=== PATIENT | female | born 1940 | race Caucasian/White ===

== ENCOUNTER 2020-06-22 03:04 | Inpatient (IN) | payer BC, SELFPAY ==
[2020-06-22] VITALS (12 sets, daily range): BP systolic 125–178; BP diastolic 55–94; PULSE 55–72; RESP 18–22; TEMP 36.3–36.8; O2SAT 92–98; BMI 23.5
--- NOTE | ~2020-06-22 | US_ITS ---
EXAMINATION: US retroperitoneal duplex ltd DATE: 07/03/2020 09:23 CDT INDICATION: Accelerated hypertension. TECHNIQUE: Sonographic imaging of the kidneys was performed with a 3.5 MHz transducer. Retroperitone al duplex sonogram of the renal arteries also obtained. FINDINGS: No focal flow abnormalities are seen in the renal arteries on color Doppler. The peak syst olic velocities at the origin of the right and left renal arteries and aorta are 174 cm per second, 1 75 cm per second, and 130 cm per second, respectively. The velocities and renal to aortic ratios are within normal limits. Incidental note is made of the left hydronephrosis. IMPRESSION: 1. No Doppler evidence of renal artery stenosis. 2: Left hydronephrosis. Reviewed, dictated and finalized at location A.
--- NOTE | ~2020-06-22 | XR_ITS ---
EXAMINATION: XR_[id number]_CR DATE: 06/24/2020 13:54 INDICATION: Right pleural effusion status post thoracentesis. TECHNIQUE: Frontal and lateral views of the chest were obtained. COMPARISON: Chest CT 06/24/2020 FINDINGS: There are moderate-sized bilateral pleural effusions. There is a small left pneumothorax. T here are airspace opacities in the mid and lower lung zones. Calcified left hilar lymph nodes are con sistent with old granulomatous disease. The nasogastric tube tip is in the stomach. There are bilater al breast implants. IMPRESSION: 1. Moderate-sized pleural effusions with improvement on the right status post thoracentesis. 2. Stable small left pneumothorax. 3. Airspace opacities in the mid and lower lung zones, likely atelectasis. Reviewed, dictated and finalized at location A. IMPRESSION: 1. Moderate-sized pleural effusions with improvement on the right status post t horacentesis. 2. Stable small left pneumothorax. 3. Airspace opacities in the mid and lower lung zones, likely atelectasis.
--- NOTE | ~2020-06-22 | XR_ITS ---
EXAMINATION: XR chest 1V portable INDICATION: Shortness of breath TECHNIQUE: Portable AP chest at 1406 hours COMPARISON: 06/22/2020 FINDINGS: Airspace opacities persist with slight worsening. Small pleural effusions are suggested. Th ere is no pneumothorax. The nasogastric tube is followed as far as the stomach. Its tip is beyond the inferior margin of the radiograph. The cardiomediastinal silhouette is stable. Enteric contrast mate rial is noted in the partially imaged abdomen. IMPRESSION: 1. Bibasilar airspace opacities with slight worsening, consistent with atelectasis versus pneumonia. 2. Small pleural effusions Reviewed, dictated and finalized at location B. IMPRESSION: 1. Bibasilar airspace opacities with slight worsening, consistent with atelecta sis versus pneumonia. 2. Small pleural effusions
--- NOTE | ~2020-06-22 | US_ITS ---
EXAMINATION: US thoracentesis DATE: 07/03/2020 13:07 CDT INDICATION: Right pleural effusion. TECHNIQUE: Survey imaging of the right thorax was performed. The procedure for ultrasound-guided tho racentesis and its risk and benefits were discussed with the patient. Risks included but were not smith ited to pain, bleeding, pneumothorax and infection. The patient verbalized understanding and provide d written consent. A time-out was performed to document the patient's name, date of , and site of procedure. The r ight posterior chest was prepped and draped in usual sterile fashion. 1% lidocaine was used for loca l anesthesia. Utilizing ultrasound guidance, a 5 [place] catheter was advanced into pleural fluid. A spiration was performed. The patient tolerated procedure without immediate complication. Sterile bandages were applied over t he aspiration site(s).] FINDINGS: 1000 cc of dark red pleural fluid obtained without complication. Patient tolerated procedur e well. IMPRESSION: 1. Successful ultrasound-guided right thoracentesis with 1000 cc of dark julio-colored fluid trever isabel Reviewed, dictated and finalized at location A. IMPRESSION: 1. Successful ultrasound-guided right thoracentesis with 1000 cc of dark julio -colored fluid obtained.
--- NOTE | ~2020-06-22 | CT_ITS ---
EXAMINATION: CT abdomen pelvis w con INDICATION: Right lower quadrant pain TECHNIQUE: Computed tomographic images of the abdomen and pelvis were obtained after the administrati on of 100 cc of Omnipaque 350 intravenous contrast. The dose-length product (DLP) was 372.11 mGy-cm. Automated exposure control and iterative reconstruction technique were employed. COMPARISON: 06/21/2018 FINDINGS: There is a [id number] sized right pleural effusion. Airspace opacities are present i n the lower lobes, right greater than left. There is a small left pneumothorax. Calcified bilateral b reast implants are noted. The heart size is normal. Cysts of the liver measure up to 2.2 cm in the ri ght hepatic lobe. Punctate calcifications in an otherwise normal spleen likely represent healed granu lomatous disease. The pancreas, gallbladder, and adrenal glands are normal. Cysts of the kidneys cadence ure up to 1.1 cm on the left. There are peripelvic cysts of both kidneys. There is calcified atherosc lerosis of the aorta and many of the other arteries. There are multiple dilated loops of small bowel which continue to a transition point right lower quadrant. The terminal ileum is decompressed. There is a moderate amount of associated edema in the mesentery of the affected right lower quadrant small bowel. Right upper quadrant and pelvic ascites are noted. Colonic diverticulosis is present without e vidence of diverticulitis. There is no free intraperitoneal gas. No pathologically enlarged abdominal or pelvic lymph nodes are identified. There is severe lumbar spondylosis at L5-S1. IMPRESSION: 1. Small bowel obstruction with transition point in the right lower quadrant. 2. Small left sided pneumothorax which appears to be chronic. Chest radiographic follow-up is recomme nded. Reviewed, dictated and finalized at location A. IMPRESSION: 1. Small bowel obstruction with transition point in the right lower quadrant. 2. Small left sided pneumothorax which appears to be chronic. Chest radiographi c follow-up is recommended.
--- NOTE | ~2020-06-22 | CT_ITS ---
EXAMINATION: CT chest wo con DATE: 06/24/2020 19:18 INDICATION: Chest pain. Status post thoracentesis TECHNIQUE: Computed tomography (CT) of the chest was performed without intravenous contrast. Automate d exposure control and iterative reconstruction technique were employed. Exam dose: 115.97 mGy-cm to janine exam DLP. COMPARISON: 06/24/2020 CT pulmonary scan FINDINGS: Since earlier today there is diminished right pleural effusion. Mild to moderate right pleu ral effusion and left pleural effusion persists. Mild left pneumothorax is again noted. There is atelectasis involving particularly the lower lobes, with crowded air bronchograms at both lo wer lobes. There is mild dependent bilateral upper lobe atelectasis. The aortic arch measures up to approximately 3.1 cm diameter, consistent with small thoracic aortic a neurysm. Coronary artery calcifications. Cardiomegaly. Coronary artery calcification. Calcified left and right hilar nodes, calcified left lower lobe pulmonary granuloma and calcified spl enic granulomas, consistent with old granulomatous disease. A nasogastric tube is present in the stomach. Bilateral breast implants. No suspicious osteolytic or osteoblastic lesions are noted. IMPRESSION: Moderate improvement of right pleural effusion following thoracentesis Persistent bilateral lower lobe compressive atelectasis with air bronchograms, secondary to pleural e ffusions, Persistent mild left pneumothorax Reviewed, dictated and finalized at Location A. Reviewed, dictated and finalized at location A. IMPRESSION: Moderate improvement of right pleural effusion following thoracent esis Persistent bilateral lower lobe compressive atelectasis with air bronchograms, secondary to pleural effusions, Persistent mild left pneumothorax
--- NOTE | ~2020-06-22 | XR_ITS ---
EXAMINATION: XR UGI water soluble w sbs DATE: 06/25/2020 11:31 INDICATION: Small bowel obstruction TECHNIQUE: 500 cc of Omnipaque 350 water-soluble contrast were injected through the nasogastric tube Conventional supine abdomen radiographs and fluoroscopy of the stomach and small bowel were performed . Fluoroscopy exposure time was 0.4 minutes. The DAP for this procedure was 36.746 Gycm2. COMPARISON: None. FINDINGS: UPPER GASTROINTESTINAL SERIES: There is no gastroesophageal reflux or hiatal hernia. The stomach shows a normal folding pattern. SMALL BOWEL SERIES: [employer] image demonstrates a persistently distended loop of bowel in the pelvis. Transit time from the stomach to proximal colon was approximately 2.5 hours. The small bowel is dilated throughout. There a ppears to be a persistent transition point in the pelvis. IMPRESSION: 1. Small bowel obstruction. Reviewed, dictated and finalized at location A. IMPRESSION: 1. Small bowel obstruction.
--- NOTE | ~2020-06-22 | XR_ITS ---
XR chest 2V 07/02/2020 08:13 Indication: Pleural effusion. Chronic pneumothorax. Procedure: AP and lateral views of the chest Comparison: Comparison to multiple prior studies sequentially, with oldest reviewed study dated 01/2018. Findings: Large right and small left pleural effusions. Mild interstitial edema. Atherosclerosis of t he aorta. No pneumothorax. No acute osseous abnormality. Impression: 1: Interstitial edema with bilateral pleural effusions, right greater than left. Reviewed, dictated and finalized at location A. Impression: 1: Interstitial edema with bilateral pleural effusions, right greater than left .
--- NOTE | ~2020-06-22 | US_ITS ---
EXAMINATION: US venous doppler LE EXAM DATE: 07/02/2020 15:24 INDICATION: Bilateral lower extremity edema. TECHNIQUE: Multiple grayscale, color flow and Doppler images of the lower extremity deep venous syste ms bilaterally were obtained and reviewed. There is no prior study for comparison. FINDINGS: Right side: The right common femoral, femoral and profunda veins demonstrate normal color flow, respi ratory variation, augmentation and compressibility. Compressibility, color flow confirmed within the right popliteal, posterior tibial, peroneal, and greater saphenous veins. Left side: The left common femoral, femoral and profunda veins demonstrate normal color flow, respira tory variation, augmentation and compressibility. Compressibility, color flow confirmed within the l eft popliteal, posterior tibial, peroneal, and greater saphenous veins. IMPRESSION: 1. No lower extremity deep venous thrombosis bilaterally. Reviewed, dictated and finalized at location A.
--- NOTE | ~2020-06-22 | XR_ITS ---
EXAMINATION: XR abdomen NG/feed tube insert INDICATION: Nasogastric tube insertion TECHNIQUE: Portable AP KUB-NG at 0501 hours COMPARISON: None available FINDINGS: The tip of the nasogastric tube is in the stomach. The proximal side port is near the gastr oesophageal junction. A small right pleural effusion is noted. Contrast from earlier CT examination p artially opacifies the urinary tract. IMPRESSION: 1. Tip of the nasogastric tube in the stomach with proximal side port at the gastroesophageal junctio n. Tube has been advanced at the time of interpretation. Reviewed, dictated and finalized at location A. IMPRESSION: 1. Tip of the nasogastric tube in the stomach with proximal side port at the ga stroesophageal junction. Tube has been advanced at the time of interpretation.
--- NOTE | ~2020-06-22 | XR_ITS ---
EXAMINATION: XR abdomen/kub 1V EXAM DATE: 06/29/2020 14:07 INDICATION: Follow up small bowel obstruction. TECHNIQUE: Frontal projection(s) of the abdomen for interpretation. Comparison is made to prior exami nation from 06/25/2020. FINDINGS: There is contrast within the colon. Previously seen loops of moderately distended air-fille d lower abdominal small bowel are no longer identified, nonspecific bowel gas pattern. Feeding tube i s in position. Some laparotomy devika which are new compared to prior study. IMPRESSION: 1. Nonobstructive bowel gas pattern. 2. Feeding tube in position. Reviewed, dictated and finalized at location A.
--- NOTE | ~2020-06-22 | XR_ITS ---
EXAMINATION: XR abdomen/kub 1V INDICATION: Small bowel obstruction TECHNIQUE: Supine views of the abdomen were obtained on 2 radiographs. COMPARISON: 06/24/2020 FINDINGS: The nasogastric tube is in the stomach. There is persistent, but slightly improved, distent ion of a bowel loop in the pelvis. No free intraperitoneal gas is identified. Gas is seen in the rect um. Pelvic phleboliths are noted. IMPRESSION: 1. Persistently dilated, but improved, pelvic bowel loop consistent with ileus versus obstruction. Reviewed, dictated and finalized at location A.
--- NOTE | ~2020-06-22 | US_ITS ---
EXAMINATION: US thoracentesis DATE: 06/24/2020 14:19 INDICATION: pleural effusion TECHNIQUE: The procedure and its risks, benefits, and alternatives were discussed with the patient. P otential risks discussed included bleeding, infection, and pneumothorax. The patient understood the r isks and agreed to proceed. The skin was prepped and draped in sterile fashion. 1% lidocaine was used for local anesthesia. Under ultrasound guidance, a 5 Fr catheter with trochar was advanced into the right pleural effusion. Fluid was aspirated. The catheter was removed, and a dressing was applied. Th ere were no immediate complications. FINDINGS: Ultrasound images demonstrate a right pleural effusion and the catheter within the fluid. IMPRESSION: 1. Successful ultrasound-guided thoracentesis yielding 1000 mL of clear, julio-colored fluid. Reviewed, dictated and finalized at location A. IMPRESSION: 1. Successful ultrasound-guided thoracentesis yielding 1000 mL of clear, julio -colored fluid.
--- NOTE | ~2020-06-22 | XR_ITS ---
EXAMINATION: XR chest 2V DATE: 06/22/2020 05:12 INDICATION: Pneumothorax TECHNIQUE: AP and lateral views of the chest are obtained. COMPARISON: 08/01/2018 FINDINGS: There is a small right pleural effusion. Minimal airspace opacities are present in the lung bases. A tiny chronic left apical pneumothorax is noted. The cardiomediastinal silhouette is normal. Contrast from earlier CT examination partially opacifies the urinary tract. An inserted nasogastric tube ends with its tip in the stomach and proximal side port near the gastroesophageal junction but h as been advanced at the time of interpretation. IMPRESSION: 1. Small, chronic left apical pneumothorax. 2. Small right pleural effusion. 3. Bibasilar airspace opacities, consistent with atelectasis versus pneumonia. Reviewed, dictated and finalized at location A.
--- NOTE | ~2020-06-22 | XR_ITS ---
XR_[id number]_CR 07/03/2020 12:35 Indication: Postthoracentesis. Right pleural effusion. Procedure: AP and lateral view of the chest Comparison: 06/24/2020 Findings: Bilateral pleural effusions, right greater than left. No pneumothorax identified post thora centesis. Interval removal of NG tube. Bibasilar atelectasis. Impression: 1: Persistent bilateral pleural effusions, right greater than left. Bibasilar compressive atelectasis . Reviewed, dictated and finalized at location A. Impression: 1: Persistent bilateral pleural effusions, right greater than left. Bibasilar c ompressive atelectasis.
--- NOTE | ~2020-06-22 | XR_ITS ---
EXAMINATION: XR abdomen NG/feed tube rechec INDICATION: Nasogastric tube advancement TECHNIQUE: Portable AP KUB-NG at 0644 hours COMPARISON: 0501 hours FINDINGS: The nasogastric tube has been advanced and now ends with its tip at the gastric antrum. A s mall right pleural effusion is noted. Contrast from earlier CT examination is again noted to partiall y opacifies the urinary tract. IMPRESSION: 1. Nasogastric tube advanced and in adequate position. Reviewed, dictated and finalized at location A.
--- NOTE | ~2020-06-22 | XR_ITS ---
EXAMINATION: XR abdomen/kub 1V INDICATION: Small bowel obstruction, increasing leukocytosis TECHNIQUE: Supine views of the abdomen were obtained on 2 radiographs. COMPARISON: 06/23/2020 FINDINGS: A nasogastric tube is in the stomach. There is distention of a loop of bowel in the pelvis extending into the midabdomen. No free intraperitoneal gas is identified. Gas and stool are seen in t he rectum. IMPRESSION: 1. Dilated loop of bowel in the pelvis extending into the mid abdomen, consistent with ileus versus o bstruction. Reviewed, dictated and finalized at location A. IMPRESSION: 1. Dilated loop of bowel in the pelvis extending into the mid abdomen, consiste nt with ileus versus obstruction.
--- NOTE | ~2020-06-22 | CT_ITS ---
EXAMINATION: CTA chest PE protocol DATE: 06/24/2020 08:50 INDICATION: Shortness of breath, left-sided pneumothorax TECHNIQUE: Computed tomography angiography (CTA) of the chest was performed with 100 mL Omnipaque-350 intravenous contrast timed to evaluate the pulmonary arteries. Coronal maximum intensity projection 3D-reconstructions were created by the technologist. The dose-length product (DLP) was 248.28 mGy-cm. Automated exposure control and iterative reconstruction technique were employed. COMPARISON: None. FINDINGS: The pulmonary arteries are well-opacified. No pulmonary embolism is identified. There is a large right pleural effusion causing atelectasis of much of the right lower lobe. A small left pleura l effusion is present which causes moderate left lower lobe atelectasis. There is a small chronic lef t-sided pneumothorax which appears unchanged from prior examinations. Bilateral breast implants are n oted. No pathologically enlarged thoracic lymph nodes are identified. The heart size is normal. A conner ogastric tube is followed as far as the stomach. There is mild thoracic spondylosis. IMPRESSION: 1. No pulmonary embolism. 2. Large right pleural effusion causing atelectasis of much of the right lower lobe. 3. Small left pleural effusion causing moderate left lower lobe atelectasis. 4. Chronic left-sided pneumothorax without definite interval change from prior examinations. Reviewed, dictated and finalized at location A.
--- NOTE | ~2020-06-22 | XR_ITS ---
EXAMINATION: XR abdomen/kub 1V INDICATION: Small bowel obstruction, right lower quadrant pain TECHNIQUE: Supine views of the abdomen were obtained on 2 radiographs. COMPARISON: 06/22/2020 FINDINGS: The nasogastric tube is in the stomach. No definitely dilated loops of bowel are seen. No f ree peritoneal gas is identified. Contrast from yesterday's CT examination opacifies the urinary blad jazmine. In addition, there is vicarious excretion of contrast material into the gallbladder. There is sl ightly increased lucency in the medial left lung base. IMPRESSION: 1. No definitely dilated loops of bowel identified. 2. Slightly increased lucency in the medial left lung base. Prior chest radiographs demonstrate what appear to be a chronic left-sided pneumothorax however, would recommend follow-up chest radiograph to evaluate for any interval change. Reviewed, dictated and finalized at location A. IMPRESSION: 1. No definitely dilated loops of bowel identified. 2. Slightly increased lucency in the medial left lung base. Prior chest radiogr aphs demonstrate what appear to be a chronic left-sided pneumothorax however, w ould recommend follow-up chest radiograph to evaluate for any interval change.
[2020-06-22 03:12] LABS: Basophils Absolute Auto 0.1 K/mm3 (0.0-0.1); Basophils Percent Auto 0.4 % (0.2-1.2); Hematocrit 44.6 % (37.0-47.0); Hemoglobin 15.5 g/dL (12.0-15.0); Immature Granulocyte Absolute 0.15 K/mm3 (0.00-0.031); Immature Granulocyte Percent A 0.9 % (0-0.5); Lymphocytes Absolute Auto 0.76 K/mm3 (0.9-3.2); Lymphocytes Percent Auto 4.5 % (18.3-44.2); Mean Corpuscular HGB Conc 34.8 g/dl (32-36); Mean Corpuscular Hemoglobin 33.3 pg (26-34); Mean Corpuscular Volume 95.9 fl (80-100); Mean Platelet Volume 10.5 fl (7.4-10.4); Monocytes Absolute Auto 0.4 K/mm3 (0.1-0.6); Monocytes Percent Auto 2.3 % (2.6-8.5); Neutrophils Absolute Auto 15.6 K/mm3 (1.3-6.7); Neutrophils Percent Auto 91.9 % (45.5-73.1); Nucleated Red Blood Cells Perc 0.1 % (0.0-0.2); Platelet Count Result 382 k/mm3 (150-375); Red Blood Count 4.65 M/mm3 (4.2-5.4); Red Cell Distribution Width 14.9 % (11.5-14.5)
[2020-06-22] MEDS: ONDANSETRON INJ 4 MG/2 ML VIAL IV PUSH ×2 (03:21→17:06)
[2020-06-22 03:26] LABS: Alanine Aminotransferase 20 U/L (4-35); Albumin Level 4.3 g/dL (3.5-5.1); Alkaline Phosphatase 94 U/L (38-126); Anion Gap 8 mmol/L (8-16); Aspartate Amino Transferase 32 U/L (14-36); Bilirubin,Total 0.8 mg/dL (0.2-1.3); Blood Urea Nitrogen 13 mg/dL (7-17); Calcium 9.4 mg/dL (8.4-10.2); Carbon Dioxide 20 mmol/L (22-30); Chloride 107 mmol/L (98-107); Estimated CRCL calculation 65 ml/min; Estimated Glomerular Filt Rate > 60; Glucose 206 mg/dL (65-105); Lipase 35 U/L (23-300); Potassium 4.3 mmol/L (3.4-5.0); Sodium 135 mmol/L (137-145)
--- NOTE | 2020-06-22 03:59 | ED.ABDPAIN ---
HPI - Abdominal Pain General Chief Complaint: Abdominal Pain Stated Complaint: abd pain/vomiting Time Seen by Provider: 06/22/20 03:05 History of Present Illness HPI narrative: Patient is an 80-year-old female who presents ER with lower abdominal pain. Reports symptoms began yesterday evening at 4 PM. Have progressed throughout the night. Pain is sharp in the right lower quadrant. Associate with nausea vomiting. Has only had one bowel movement. Has history of previous surgery including appendectomy hysterectomy. No known sick contacts. No alleviating factors. Related Data Home Medications Medication Instructions Recorded Confirmed metoprolol tartrate 25 mg PO BID 06/22/20 06/22/20 pravastatin 20 mg PO DAILY 06/22/20 06/22/20 Allergies Allergy/AdvReac Type Severity Reaction Status Date / Time No Known Allergies Allergy Unverified 06/21/18 16:26 Review of Systems Review of Systems: All systems reviewed & are unremarkable except as noted in HPI and below Constitutional: Constitutional: Denies chills, Denies fever(s) and Denies weakness ENT: Denies nasal congestion and Denies sore throat Cardiovascular: Cardiovascular: Denies chest pain and Denies radiating jaw, neck or arm pain Gastrointestinal: Gastrointestinal: Reports abdominal pain, Denies diarrhea, Reports nausea and Reports vomiting Genitourinary: Genitourinary: Denies hematuria, Denies nocturia, Denies dysuria and Denies flank pain PMFSH Past Medical History Medical History (Updated 06/22/20 @ 06:26 by Alvaro Berg MD) Anxiety Hypertension Other and unspecified hyperlipidemia Surgical History Surgical History (Updated 06/22/20 @ 04:02 by Alvaro Berg MD) History of appendectomy History of hysterectomy Family History Family History (Updated 06/22/20 @ 05:41 by Leyla Zamorano RN) Father Mesothelioma Mother Cerebrovascular accident Social History Social History Smoking status: Never smoker Alcohol intake: never Substance use: never Gender identity (if verbalized by the patient): Female Spiritual care concerns: No Exam Narrative: Exam Narrative: GENERAL: Uncomfortable-appearing, well-nourished, and in no acute distress. HEAD: Normocephalic, atraumatic. ENT: Mucous membranes moist. CHEST: Clear to auscultation. No respiratory distress. HEART: Regular rate and rhythm. Normal peripheral pulses. ABDOMEN: Soft, tender palpation right lower quadrant with guarding, nondistended. EXTREMITIES: Normal range of motion. No edema. SKIN: Warm, dry, no rash. NEURO: Alert and oriented x3. PSYCH: Normal mood and affect Course Course Emergency Course: Discussed with Dr. Porter. NG tube placed. Admit for further evaluation. Vital Signs Vital signs: Vital Signs Temperature 98.2 F 06/22/20 03:02 Pulse Rate 65 06/22/20 03:02 Respiratory Rate 20 06/22/20 03:02 Blood Pressure 164/71 H 06/22/20 03:02 Pulse Oximetry 98 06/22/20 03:02 Temperature 98.3 F 06/22/20 05:13 Pulse Rate 65 06/22/20 05:13 Respiratory Rate 19 06/22/20 05:13 Blood Pressure 137/94 H 06/22/20 05:13 Pulse Oximetry 95 06/22/20 05:13 MDM - Abdominal Pain Lab Data Result diagrams: 06/22/20 03:07 06/22/20 03:07 Labs: Lab Results 06/22/20 06/22/20 Range/Units 03:07 03:07 WBC 17.0 H (4.5-10.0) K/mm3 RBC 4.65 (4.2-5.4) M/mm3 Hgb 15.5 H (12.0-15.0) g/dL Hct 44.6 (37.0-47.0) % MCV 95.9 (80-100) fl MCH 33.3 (26-34) pg MCHC 34.8 (32-36) g/dl RDW 14.9 H (11.5-14.5) % Plt Count 382 H (150-375) k/mm3 MPV 10.5 H (7.4-10.4) fl Immature Gran % (Auto) 0.9 H (0-0.5) % Neut % (Auto) 91.9 H (45.5-73.1) % Lymph % (Auto) 4.5 L (18.3-44.2) % [place] % (Auto) 2.3 L (2.6-8.5) % Eos % (Auto) 0.0 (0-4.4) % Baso % (Auto) 0.4 (0.2-1.2) % Lymph # (Auto) 0.76 L (0.9-3.2) K/mm3 [place] # (Auto) 0.4 (0.1-0.6) K/mm3 Eos # (Auto) 0.0
--- NOTE | 2020-06-22 04:55 | PC.NURSE ---
pt unable to provide urine sample at this time
--- NOTE | 2020-06-22 05:26 | ADMGEN ---
This patient, Balbina Lopez, was admitted to Medical Room 247-. Patient/family oriented to hospital policies and general routines including ID bracelet, bed and alarms, visiting hours, pain management, procedures, bathroom and other care routines, personal items, smoking policy, room service/diet, and visiting hours. Valuables list has been completed. Information on how to activate the Rapid Response Team has been discussed. Patient/Family are encouraged to report perceived risks to care and to ask questions if they do not understand what they are told or what they should do.
[2020-06-22] MEDS: SODIUM CHLORIDE 0.9% IV 1,000 ML 125 ML IV CONT (05:47)
[2020-06-22] MEDS: MORPHINE SULFATE 4 MG/ML INJ IV PUSH ×3 (05:49→14:29)
[2020-06-22 06:15] LABS: Add Urine Microscopic? YES; Appearance Urine Clear (Clear); Bilirubin Urine Negative (Negative); Blood Urine 1+ (Negative); Color Urine Yellow (Yellow); Glucose Urine UA Negative (Negative); Ketones Urine Negative (Negative); Leukocyte Esterase Ur Trace LEU/UL (Negative); Mucus Urine Rare /lpf; Nitrate Urine Negative (Negative); Protein Urine 1+ mg/dL (Negative); Squamous Epithelial Cell Urine Few /hpf (Few); Urobilinogen Urine Negative mg/dL (<2.0)
[2020-06-22 06:30] LABS: Specific Grav Ur > 1.060 (1.001-1.035)
[2020-06-22] MEDS: METOPROLOL TARTRATE INJ 5 MG/5 ML VIAL IV PUSH ×3 (06:53→17:06)
--- NOTE | 2020-06-22 11:02 | PM.IMHP ---
H&P: HPI History of Present Illness Date/Time: 06/22/20 06:32 Chief complaint: small bowel obstruction Narrative: Balbina Lopez is a 80 year old female with a history of previous open appendectomy as well as a hysterectomy. She reports eating some pizza from [employer] yesterday. She had ordered green peppers but instead got pepperoni. After eating a pizza she started having crampy and sharp abdominal pain associated with nausea and vomiting. This persisted and she came to the emergency room. She was seen by Dr. Berg in the emergency room about 3:00 a.m. today. Shoe was noted to have some tenderness in the right lower quadrant on abdominal exam with mild guarding. No distention was appreciated. She was afebrile [place] [address] scan was done and showed small-bowel obstruction with transition point in the right lower quadrant. CT of the abdomen pelvis also showed a chronic small left-sided pneumothorax. Review of old records shows that his had been known and present for at least 3 years. It is been asymptomatic. She is admitted now for small-bowel obstruction. Review of Systems Review of Systems: All systems reviewed & are unremarkable except as noted in HPI and below Constitutional: Constitutional: Denies chills and Denies fever(s) Cardiovascular: Cardiovascular: Denies chest pain, Denies diaphoresis, Denies dyspnea and Denies paroxysmal nocturnal dyspnea Respiratory: Respiratory: Denies chest congestion, Denies cough and Denies dyspnea Integumentary/Breasts: Skin/Breast: Denies lesions and Denies rash Neurologic: Denies Sensory deficit (Neuro) [facility] Past Medical History Medical History Anxiety Hypertension Other and unspecified hyperlipidemia Surgical History Surgical History History of appendectomy History of hysterectomy Family History Family History Father Mesothelioma Mother Cerebrovascular accident Social History Social History Smoking status: Never smoker Alcohol intake: never Substance use: never Gender identity (if verbalized by the patient): Female Spiritual care concerns: No Meds Home Medications and Allergies Home Medications Medication Instructions Recorded Confirmed Type metoprolol tartrate 25 mg PO BID 06/22/20 06/22/20 History pravastatin 20 mg PO DAILY 06/22/20 06/22/20 History Allergies Allergy/AdvReac Type Severity Reaction Status Date / Time No Known Allergies Allergy Unverified 06/21/18 16:26 Vital Signs Vital Signs - 24 hr 06/22/20 03:02 06/22/20 04:17 06/22/20 05:13 Temperature 36.8 C 36.8 C Pulse Rate 65 57 L 65 Respiratory Rate 20 19 19 Blood Pressure 164/71 H 178/80 H 137/94 H Pulse Oximetry 98 98 95 06/22/20 06:52 06/22/20 06:53 06/22/20 07:58 Temperature 36.8 C Pulse Rate 72 65 Respiratory Rate 18 Blood Pressure 152/55 H 152/55 H Pulse Oximetry 96 06/22/20 09:10 Temperature 36.6 C Pulse Rate 58 L Respiratory Rate 20 Blood Pressure 139/69 Pulse Oximetry 95 Exam Const: General: comfortable, no acute distress, alert and awake HENMT: Head: normocephalic and atraumatic Ears: hearing grossly normal bilaterally and external ears normal General nose exam: Normal external nose present, no nasal discharge noted and no epistaxis Face and sinus: normal facial exam, face symmetric, no tenderness and dry mucous membranes Mouth: Yes Normal oral and palatal mucosa present and No tongue abnormal Eyes: Conjunctivae: conjunctivae normal Sclera: sclerae normal Pupils: Equal, round and reactive pupils present EOM: EOMs intact bilaterally Neck: Neck: no lymphadenopathy, nontender and No submandibular swelling Thyroid: thyroid normal and nontender Lymphatic: lymphadenopathy not not
[2020-06-22] MEDS: ENOXAPARIN 40 MG/0.4 ML SYRINGE SUB-Q (12:32)
[2020-06-22] MEDS: SODIUM CHLORIDE 0.9% IV 1,000 ML 80 ML IV CONT (14:30)
[2020-06-22] MEDS: FAMOTIDINE 20 MG/2 ML VIAL IV PUSH (22:24)
[2020-06-22] MEDS: MORPHINE SULFATE 4 MG/ML INJ 2 MG IV PUSH (22:29)
[2020-06-23] VITALS (15 sets, daily range): BP systolic 128–200; BP diastolic 48–76; PULSE 60–78; RESP 18–32; TEMP 36.2–37.1; O2SAT 91–95
[2020-06-23] MEDS: METOPROLOL TARTRATE INJ 5 MG/5 ML VIAL IV PUSH ×5 (00:03→23:23)
[2020-06-23] MEDS: SODIUM CHLORIDE 0.9% IV 1,000 ML 80 ML IV CONT ×2 (03:38→18:04)
[2020-06-23] MEDS: MORPHINE SULFATE 4 MG/ML INJ 2 MG IV PUSH (05:51)
[2020-06-23] MEDS: ONDANSETRON INJ 4 MG/2 ML VIAL IV PUSH ×2 (06:00→16:04)
[2020-06-23 07:22] LABS: Basophils Absolute Auto 0.1 K/mm3 (0.0-0.1); Basophils Percent Auto 0.5 % (0.2-1.2); Eosinophils Percent Auto 0.2 % (0-4.4); Hematocrit 41.7 % (37.0-47.0); Hemoglobin 13.9 g/dL (12.0-15.0); Immature Granulocyte Absolute 0.08 K/mm3 (0.00-0.031); Immature Granulocyte Percent A 0.6 % (0-0.5); Lymphocytes Absolute Auto 1.32 K/mm3 (0.9-3.2); Mean Corpuscular HGB Conc 33.3 g/dl (32-36); Mean Corpuscular Hemoglobin 33.2 pg (26-34); Mean Corpuscular Volume 99.5 fl (80-100); Mean Platelet Volume 10.4 fl (7.4-10.4); Monocytes Absolute Auto 1.1 K/mm3 (0.1-0.6); Neutrophils Absolute Auto 10.6 K/mm3 (1.3-6.7); Neutrophils Percent Auto 80.7 % (45.5-73.1); Platelet Count Result 331 k/mm3 (150-375); Red Blood Count 4.19 M/mm3 (4.2-5.4); Red Cell Distribution Width 15.7 % (11.5-14.5); White Blood Count 13.2 K/mm3 (4.5-10.0)
[2020-06-23 07:34] LABS: Anion Gap 4 mmol/L (8-16); Blood Urea Nitrogen 16 mg/dL (7-17); Calcium 8.2 mg/dL (8.4-10.2); Carbon Dioxide 25 mmol/L (22-30); Chloride 108 mmol/L (98-107); Estimated CRCL calculation 55 ml/min; Estimated Glomerular Filt Rate > 60; Glucose 118 mg/dL (65-105); Potassium 4.2 mmol/L (3.4-5.0); Sodium 137 mmol/L (137-145)
--- NOTE | 2020-06-23 08:04 | PM.PNGS ---
Progress Note: A&P Assessment and Plan (1) Small bowel obstruction: Code(s): K56.609 - Unspecified intestinal obstruction, unspecified as to partial versus complete obstruction Status: Acute Assessment and Plan: Improving. Continue NG suction IV fluids and NPO. Recheck exam KUB and labs again in a.m.. Probably will get water-soluble upper GI small-bowel follow-through tomorrow. (2) Other and unspecified hyperlipidemia: Code(s): E78.5 - Hyperlipidemia, unspecified Status: Chronic (3) Anxiety: Code(s): F41.9 - Anxiety disorder, unspecified Status: Chronic Subjective Subjective Date/Time Seen: 06/23/20 08:04 Patient reports: feels better, pain is less, no flatus and no bowel movement Review of Systems Review of Systems: All systems reviewed & are unremarkable except as noted in HPI and below Constitutional: Constitutional: Denies headache(s) Cardiovascular: Cardiovascular: Denies chest pain and Denies dyspnea Respiratory: Respiratory: Denies cough and Denies dyspnea Gastrointestinal: Gastrointestinal: Reports as per HPI Neurologic: Denies confusion and Denies headache(s) Exam Const: General: comfortable and no acute distress; No confusion Orientation/consciousness: patient oriented x3 and No confusion GI: GI Palp: Yes Soft to palpation, Yes Tenderness to palpation present (GI), No Guarding due to palpation present (GI) and No Rebound tenderness present Auscultation: normal bowel sounds Neuro: General: patient oriented x3, no focal motor deficits and No confusion Extrem: General: no calf tenderness and no edema Psych: Affect: normal affect Insight: Good insight present (Psych) Judgement: Good judgement present (Psych) Objective Data Vital Signs Vital Signs: Vital Signs - 24 hr 06/22/20 09:10 06/22/20 12:32 06/22/20 13:35 Temperature 36.6 C 36.8 C Pulse Rate 58 L 60 60 Respiratory Rate 20 22 H Blood Pressure 139/69 149/79 H Pulse Oximetry 95 96 06/22/20 17:06 06/22/20 18:20 06/22/20 20:00 Temperature 36.3 C L 36.7 C Pulse Rate 56 L 55 L 60 Respiratory Rate 20 20 Blood Pressure 139/63 125/65 Pulse Oximetry 97 92 06/23/20 00:00 06/23/20 00:03 06/23/20 01:30 Temperature 36.2 C L 37.1 C Pulse Rate 62 62 60 Respiratory Rate 18 18 Blood Pressure 167/48 H 128/76 Pulse Oximetry 92 92 06/23/20 04:00 06/23/20 05:50 Temperature 36.6 C Pulse Rate 65 78 Respiratory Rate 18 Blood Pressure 158/72 H Pulse Oximetry 93 Intake/Output Intake/Output: Intake & Output 06/20/20 06/21/20 06/22/20 06/23/20 23:59 23:59 23:59 23:59 Intake Total 1209 791 Output Total 400 120 Balance 809 671 Meds/Results Medications: Active Medications Generic Name Dose Route Start Last Admin Trade Name Freq PRN Reason Stop Dose Admin Enoxaparin Sodium 40 mg 06/23/20 09:00 Lovenox SUB-Q DAILY JOZEF Famotidine 20 mg 06/22/20 21:00 06/22/20 22:24 Pepcid Iv IV PUSH 20 mg Q12HR JOZEF Administration Sodium Chloride 1,000 mls @ 80 mls/hr 06/22/20 04:50 06/23/20 03:38 Normal Saline Iv IV CONT 80 mls/hr .[id number] JOZEF Administration Ibuprofen 400 mg/ Sodium 104 mls @ 200 mls/hr 06/22/20 11:12 Chloride IVPB Q6H PRN Pain Rated 1-3 Metoprolol Tartrate 5 mg 06/22/20 06:35 06/23/20 05:50 Lopressor Inj IV PUSH 5 mg Q6HR JOZEF Administration Morphine Sulfate 4 mg 06/22/20 04:49 06/22/20 14:29 Morphine Sulfate Inj IV PUSH 4 mg Q2H PRN Administration Pain Rated 7-10 Morphine Sulfate 1 mg 06/22/20 11:12 Morphine Sulfate Inj IV PUSH Q2H PRN Pain Rated 4-6 Morphine Sulfate 2 mg 06/22/20 11:12 06/23/20 05:51 Morphine Sulfate Inj IV PUSH 2 mg Q2H PRN Administration Pain Rated 7-10 Ondansetron HCl 4 mg 06/22/20 04:49 06/23/20 06:00 Zofran Inj IV PUSH 4 mg Q4H PRN Administration Nausea Radiology Results: ITS Impressions Ch
[2020-06-23] MEDS: FAMOTIDINE 20 MG/2 ML VIAL IV PUSH ×2 (09:23→20:07)
[2020-06-23] MEDS: ENOXAPARIN 40 MG/0.4 ML SYRINGE SUB-Q (09:23)
[2020-06-23] MEDS: hydrALAZINE HCL 20 MG/ML VIAL 10 MG IV PUSH (14:20)
[2020-06-23 15:57] LABS: Glucose Point of Care 104 (65-105)
[2020-06-23] MEDS: IBUPROFEN IV 400 MG in SODIUM CHLORIDE 0.9% IV 100 ML 200 MG IVPB ×2 (16:00→23:23)
[2020-06-24] VITALS (22 sets, daily range): BP systolic 146–184; BP diastolic 43–75; PULSE 56–94; RESP 16–24; TEMP 36.6–37.1; O2SAT 90–96
[2020-06-24] MEDS: METOPROLOL TARTRATE INJ 5 MG/5 ML VIAL IV PUSH ×4 (05:53→23:33)
[2020-06-24] MEDS: SODIUM CHLORIDE 0.9% IV 1,000 ML 80 ML IV CONT ×2 (06:03→21:10)
[2020-06-24 06:04] LABS: Hemoglobin 13.2 g/dL (12.0-15.0); Mean Corpuscular HGB Conc 33.8 g/dl (32-36); Mean Corpuscular Hemoglobin 33.2 pg (26-34); Mean Corpuscular Volume 98.2 fl (80-100); Mean Platelet Volume 10.6 fl (7.4-10.4); Platelet Count Result 259 k/mm3 (150-375); Red Blood Count 3.97 M/mm3 (4.2-5.4); Red Cell Distribution Width 15.5 % (11.5-14.5); White Blood Count 14.2 K/mm3 (4.5-10.0)
[2020-06-24] MEDS: MORPHINE SULFATE 4 MG/ML INJ IV PUSH ×3 (06:05→12:06)
[2020-06-24] MEDS: ONDANSETRON INJ 4 MG/2 ML VIAL IV PUSH ×2 (06:08→12:18)
[2020-06-24 06:20] LABS: Anion Gap 3 mmol/L (8-16); Blood Urea Nitrogen 15 mg/dL (7-17); Carbon Dioxide 22 mmol/L (22-30); Chloride 112 mmol/L (98-107); Estimated CRCL calculation 79 ml/min; Estimated Glomerular Filt Rate > 60; Glucose 121 mg/dL (65-105); Sodium 137 mmol/L (137-145)
[2020-06-24] MEDS: hydrALAZINE HCL 20 MG/ML VIAL 10 MG IV PUSH (06:26)
--- NOTE | 2020-06-24 06:32 | PM.PNGS ---
Progress Note: A&P Assessment and Plan (1) Small bowel obstruction: Code(s): K56.609 - Unspecified intestinal obstruction, unspecified as to partial versus complete obstruction Status: Acute Assessment and Plan: KUB reviewed and still has a distended loop of small bowel in the mid abdomen. Pain is better but still no bowel movement or flatus. Her white count is creeping higher as well. Will get Gastrografin upper GI small-bowel follow-through this morning. I am concerned that this is not resolving and patient may well require surgery. Subjective Subjective Date/Time Seen: 06/24/20 06:32 Patient reports: no new complaints, pain is less, no flatus, no bowel movement and afebrile Review of Systems Review of Systems: All systems reviewed & are unremarkable except as noted in HPI and below Constitutional: Constitutional: Denies chills, Denies fever(s) and Denies weakness Cardiovascular: Cardiovascular: Denies chest pain and Denies dyspnea Respiratory: Respiratory: Denies cough and Denies dyspnea Gastrointestinal: Gastrointestinal: Reports as per HPI, Denies abdominal pain, Denies GI cramping and Denies nausea Neurologic: Denies confusion and Denies headache(s) Exam Const: General: comfortable and no acute distress; No confusion Orientation/consciousness: patient oriented x3 and No confusion GI: Inspection: normal to inspection, non-distended and scar GI Palp: Yes Soft to palpation, No Tenderness to palpation present (GI), No Guarding due to palpation present (GI), No Hernia present, No Palpable mass present and No Rebound tenderness present Auscultation: normal bowel sounds Neuro: General: patient oriented x3, no focal motor deficits and No confusion Extrem: General: no calf tenderness and no edema Psych: Affect: normal affect Insight: Good insight present (Psych) Judgement: Good judgement present (Psych) Objective Data Vital Signs Vital Signs: Vital Signs - 24 hr 06/23/20 09:00 06/23/20 10:26 06/23/20 12:42 Temperature 37.1 C Pulse Rate 72 75 70 Respiratory Rate 20 Blood Pressure 200/72 H 155/74 H Pulse Oximetry 92 06/23/20 12:44 06/23/20 14:00 06/23/20 15:41 Temperature 37.1 C 36.6 C Pulse Rate 71 75 Respiratory Rate 22 H 32 H Blood Pressure 178/61 H 170/66 H 161/58 H Pulse Oximetry 91 93 06/23/20 18:06 06/23/20 18:07 06/23/20 22:00 Temperature 36.6 C Pulse Rate 70 70 Respiratory Rate 18 Blood Pressure 157/57 H 174/60 H Pulse Oximetry 95 06/23/20 23:23 06/24/20 02:00 06/24/20 05:53 Temperature 36.6 C Pulse Rate 70 56 L 66 Respiratory Rate 18 Blood Pressure 146/43 H Pulse Oximetry 96 06/24/20 06:00 06/24/20 06:30 Temperature 36.7 C Pulse Rate 73 Respiratory Rate 16 Blood Pressure 184/69 H 182/57 H Pulse Oximetry 94 Intake/Output Intake/Output: Intake & Output 06/21/20 06/22/20 06/23/20 06/24/20 23:59 23:59 23:59 23:59 Intake Total 1209 1999 1000 Output Total 400 545 400 Balance 809 1454 600 Meds/Results Medications: Active Medications Generic Name Dose Route Start Last Admin Trade Name Freq PRN Reason Stop Dose Admin Enoxaparin Sodium 40 mg 06/23/20 09:00 06/23/20 09:23 Lovenox SUB-Q 40 mg DAILY JOZEF Administration Famotidine 20 mg 06/22/20 21:00 06/23/20 20:07 Pepcid Iv IV PUSH 20 mg Q12HR JOZEF Administration Hydralazine HCl 10 mg 06/23/20 10:08 06/24/20 06:26 Apresoline Hcl Inj IV PUSH 10 mg Q4HR PRN Administration Blood Pressure - High Sodium Chloride 1,000 mls @ 80 mls/hr 06/22/20 04:50 06/24/20 06:03 Normal Saline Iv IV CONT 80 mls/hr .[id number] JOZEF Administration Ibuprofen 400 mg/ Sodium 104 mls @ 200 mls/hr 06/22/20 11:12 06/23/20 23:55 Chloride IVPB Infused Q6H PRN Infusion Pain Rated 1-3 Metoprolol Tartrate 5 mg 06/22/20 06:35 06/24/20 05:53 Lopressor Inj IV PUSH 5 mg Q6HR JOZEF Administration Morphine Sulfate 4
--- NOTE | 2020-06-24 07:32 | PCDIET ---
DR HARE NOTIFIED OF PT C/O CHEST PAIN 07/31 AND RAPID RESPONSE CALLED. NEW ORDERS RECEIVED
--- NOTE | 2020-06-24 07:34 | ECG_ITS ---
Measurements Intervals [place] Rate: 76 P: 23 [place]: 154 QRS: 19 QRSD: 87 T: 20 QT: 377 QTc: 424 Interpretive Statements SINUS RHYTHM CANNOT RULE OUT SEPTAL INFARCT, AGE INDETERMINATE BORDERLINE ST-T WAVE ABNORMALITY- DIFFUSE LEADS BASELINE ARTIFACT- II, III ABNORMAL ECG Electronically Signed On 06-24-2020 8:16:23 CDT by Adonis Goetz D.O.
[2020-06-24 08:00] LABS: Alveolar/Arterial O2 Gradient 152.6 mmHg; Base Excess ABG -2.8 mEq/l (+/-2.0); Fractional Inspired Oxygen 36 %; HCO3 ABG 21.6 mEq/l (22.0-26.0); Oxygen Content ABG 17.6 %vol (16.0-22.0); Oxygen Saturation ABG 91.8 % (95.0-100.0); Oxyhemoglobin 90.8 % THb (90.0-100.0); PCO2 ABG 36.3 mmHg (35.0-45.0); PO2 FiO2 Ratio Arterial Blood 1.72 %; Total Hemoglobin 13.8 g/dL (12.0-18.0); pH ABG 7.392 (7.350-7.450)
[2020-06-24 08:02] LABS: Device NASAL CANNULA; Site Drawn RIGHT BRACHIAL
[2020-06-24 08:14] LABS: Troponin I 0.023 ng/mL (0.000-0.034)
--- NOTE | 2020-06-24 08:27 | PC.NURSE ---
Patient to CAT scan for CTA of the chest. Patient's NG tube clamped, IV saline locked, and on 5 liters nasal cannula oxygen saturation 95%.
--- NOTE | 2020-06-24 08:33 | WPDANESEPP ---
Anes - Eval Pre Procedure Procedure: Operation Date: 06/24/20 12:00 Proposed Procedures p Exploratory Laparotomy, Possible Bowel Resection - Michael Porter MD Date/Time: 06/24/20 08:33 Pre Op Diagnosis: small bowel obstruction Patient Data Age: 80 Gender: F Height: 1.63 m Weight: 62.1 kg Last Vital Signs Temp 36.7 C 06/24/20 06:00 Pulse 70 06/24/20 07:22 Resp 22 H 06/24/20 07:22 BP 154/56 H 06/24/20 07:22 Pulse Ox 95 06/24/20 08:08 Allergies Allergy/AdvReac Type Severity Reaction Status Date / Time No Known Allergies Allergy Unverified 06/21/18 16:26 Home Medications Medication Instructions Recorded Confirmed Type metoprolol tartrate 25 mg PO BID 06/22/20 06/22/20 History pravastatin 20 mg PO DAILY 06/22/20 06/22/20 History Laboratory Tests 06/23/20 06/24/20 06/24/20 15:27 05:44 05:44 WBC 14.2 K/mm3 H K/mm3 (4.5-10.0) RBC 3.97 M/mm3 L M/mm3 (4.2-5.4) Hgb 13.2 g/dL g/dL (12.0-15.0) Hct 39.0 % % (37.0-47.0) MCV 98.2 fl fl (80-100) MCH 33.2 pg pg (26-34) MCHC 33.8 g/dl g/dl (32-36) RDW 15.5 % H % (11.5-14.5) Plt Count 259 k/mm3 k/mm3 (150-375) MPV 10.6 fl H fl (7.4-10.4) Puncture Site ABG pH ABG pCO2 ABG pO2 ABG PO2/FiO2 Ratio ABG HCO3 ABG O2 Saturation ABG O2 Content ABG Base Excess A-a Gradient Oxyhemoglobin Total Hemoglobin O2 Delivery Device O2 Liters/Min FiO2 Sodium 137 mmol/L mmol/L (137-145) Potassium 4.0 mmol/L mmol/L (3.4-5.0) Chloride 112 mmol/L H mmol/L (98-107) Carbon Dioxide 22 mmol/L mmol/L (22-30) Anion Gap 3 mmol/L L mmol/L (8-16) BUN 15 mg/dL mg/dL (7-17) Creatinine 0.40 mg/dL L mg/dL (0.7-1.0) Estim Creat Clear Calc 79 ml/min ml/min Estimated GFR > 60 (59 - ) Glucose 121 mg/dL H mg/dL (65-105) POC Capillary Glucose 104 mg/dl mg/dl (65-105) Calcium 8.0 mg/dL L mg/dL (8.4-10.2) Troponin I 06/24/20 06/24/20 07:45 07:56 WBC RBC Hgb Hct MCV MCH MCHC RDW Plt Count MPV Puncture Site Right brachial ABG pH 7.392 (7.350-7.450) ABG pCO2 36.3 mmHg mmHg (35.0-45.0) ABG pO2 62.0 mmHg L mmHg (80.0-100.0) ABG PO2/FiO2 Ratio 1.72 % % ABG HCO3 21.6 mEq/l L mEq/l (22.0-26.0) ABG O2 Saturation 91.8 % L % (95.0-100.0) ABG O2 Content 17.6 %vol %vol (16.0-22.0) ABG Base Excess -2.8 mEq/l mEq/l (+/-2.0) A-a Gradient 152.6 mmHg mmHg Oxyhemoglobin 90.8 % THb % THb (90.0-100.0) Total Hemoglobin 13.8 g/dL g/dL (12.0-18.0) O2 Delivery Device Nasal cannula O2 Liters/Min 4.0 LPM LPM FiO2 36 % % Sodium Potassium Chloride Carbon Dioxide Anion Gap BUN Creatinine Estim Creat Clear Calc Estimated GFR Glucose POC Capillary Glucose Calcium Troponin I 0.023 ng/mL ng/mL (0.000-0.034) ECG: SB Other Studies: CXR chronic left apical pneumothorax, small right pleural effusion Patient hx anesthesia problems: none Family hx anesthesia problems: none PMFSH Past Medical History Medical History (Updated 06/24/20 @ 08:39 by Sabine Jones CRNA) Anxiety Arthritis Hypertension Other and unspecified hyperlipidemia Pneumothorax chronic left apical pneumothorax, small right pleural effusion Surgical History Surgical History Histo
[2020-06-24] MEDS: FAMOTIDINE 20 MG/2 ML VIAL IV PUSH ×2 (09:18→21:11)
[2020-06-24 09:53] LABS: INR 1.2; Prothrombin Time 14.8 Seconds (11.1-14.7)
--- NOTE | 2020-06-24 13:20 | PC.NURSE ---
To Radiology per stretcher with IV saline locked and NG tube clamped for US guided thoracentesis. Consent signed and on hard chart.
--- NOTE | 2020-06-24 14:01 | PC.NURSE ---
Patient returned from ultrasound guided thoracentesis. 1 liter removed and patient remains on 5L nasal cannula. Bandaid noted to right back. Patient's NS @ 80ml's/hour resumed and NG to low continuous suction.
[2020-06-24 14:34] LABS: Appearance Pleural Fluid Bloody (Clear); Color Pleural Fluid Red (Colorless); Nucleated Cell Pleural Fluid 1251 /uL (0-1000); Pleural fluid source Pleural fluid; RBC Pleural Fluid 14909 /uL (0-0)
[2020-06-24 14:35] LABS: Lymphocytes Pleural Fluid 2 %; Macrophages Pleural Fluid 32 %; Mesothelial Cells Pleural Flui 7 %; Monocytes Pleural Fluid 34 %; Neutrophils Pleural Fluid 25 % (0-25)
--- NOTE | 2020-06-24 14:48 | PM.IMHP ---
H&P: HPI History of Present Illness Date/Time: 06/24/20 14:48 Chief complaint: small bowel obstruction Narrative: Balbina Lopez is a 80 year old female admitted for a small-bowel obstruction and seen by surgery service this morning patient had complaint of shortness of breath and chest pain with coughing, consultation for medical management was requested, EKG was nondiagnostic, 1st tropes negative, ABG showed hypoxia on 4 L, and her oxygen was increased to 5 L, to further evaluate patient had a CTA of the chest there was pulmonary emboli however scan showed large pleural effusion on right side, patient had a thoracentesis and 1000 cc was removed, labs are ordered and pending, now that 1000 cc of fluid is removed repeat CT scan to further evaluate if patient has a pneumonia or malignancy and further recommendation to follow, we will do cardiac echo to further evaluate, currently patient's symptoms much improved and stable will continue to monitor, we appreciate for the consultation, will follow the patient with you please feel free to call us with any question. Review of Systems Review of Systems: All systems reviewed & are unremarkable except as noted in HPI and below PMFSH Past Medical History Medical History (Updated 06/24/20 @ 15:12 by Mustapha Panda MD) Anxiety Arthritis Hypertension Other and unspecified hyperlipidemia Pneumothorax chronic left apical pneumothorax, small right pleural effusion Surgical History Surgical History History of appendectomy History of hysterectomy Family History Family History Father Mesothelioma Mother Cerebrovascular accident Social History Social History Smoking status: Never smoker Alcohol intake: never Substance use: never Gender identity (if verbalized by the patient): Female Spiritual care concerns: No Meds Home Medications and Allergies Home Medications Medication Instructions Recorded Confirmed Type metoprolol tartrate 25 mg PO BID 06/22/20 06/22/20 History pravastatin 20 mg PO DAILY 06/22/20 06/22/20 History Allergies Allergy/AdvReac Type Severity Reaction Status Date / Time No Known Allergies Allergy Unverified 06/21/18 16:26 Vital Signs Vital Signs - 24 hr 06/23/20 15:41 06/23/20 18:06 06/23/20 18:07 Temperature 98 F Pulse Rate 75 70 Respiratory Rate 32 H Blood Pressure 161/58 H 157/57 H Pulse Oximetry 93 06/23/20 22:00 06/23/20 23:23 06/24/20 02:00 Temperature 97.9 F 97.9 F Pulse Rate 70 70 56 L Respiratory Rate 18 18 Blood Pressure 174/60 H 146/43 H Pulse Oximetry 95 96 06/24/20 05:53 06/24/20 06:00 06/24/20 06:30 Temperature 98.0 F Pulse Rate 66 73 Respiratory Rate 16 Blood Pressure 184/69 H 182/57 H Pulse Oximetry 94 06/24/20 06:44 06/24/20 07:22 06/24/20 08:08 Temperature Pulse Rate 70 Respiratory Rate 22 H Blood Pressure 147/48 H 154/56 H Pulse Oximetry 90 95 06/24/20 08:25 06/24/20 09:35 06/24/20 11:55 Temperature 98.3 F Pulse Rate 89 88 Respiratory Rate 24 H Blood Pressure 181/66 H 184/70 H Pulse Oximetry 95 91 91 06/24/20 11:56 06/24/20 13:25 06/24/20 13:30 Temperature 98.1 F Pulse Rate 88 70 73 Respiratory Rate 24 H 24 H Blood Pressure 179/75 H 178/74 H Pulse Oximetry 93 95 06/24/20 13:45 06/24/20 14:08 Temperature Pulse Rate 94 Respiratory Rate 24 H Blood Pressure 170/71 H Pulse Oximetry 94 95 Exam Const: General: no acute distress and uncomfortable HENMT: General nose exam: Normal nares present Mouth: Yes moist mucous membranes Eyes: Sclera: sclerae normal Neck: Neck: supple Resp: Other: bilateral poor air entry with rhonchi diminishing air entry on the right Cardio: Rate: regular rate Rhythm: regular rhythm GI: Other: shayne
--- NOTE | 2020-06-24 17:35 | PM.CNPUL ---
Assessment and Plan Assessment and plan (1) Pleural effusion: Code(s): J90 - Pleural effusion, not elsewhere classified Status: Acute Assessment and Plan: She has a new large right bloody pleural effusion without a PE which developed after she was admitted 06/22. Initial CXR showed a small effusion and infiltrates. This morning she developed shortness of breath with desaturation requiring starting O2, feels better after 1 L fluid tapped. The pH and differential on the fluid are normal, pH 7.36, large amount of blood with almost 15 K rbc and 1251 wbc normal differential. Bloody effusions can be due to trauma, PE, TB, cancer. She had no recent trauma, CTA excludes a pulmonary embolus, no history to suggest TB although it is possible. She is 80 yo with a small bowel obstruction which is not much improved. If this effusion requires repeat tap, she will need fluid sent for cytology, AFB and fungal studies. I am concerned that she may have malignancy as a cause for this finding. (2) Shortness of breath at rest: Code(s): R06.02 - Shortness of breath Status: Acute Assessment and Plan: Improved after large volume thoracentesis (3) Pneumothorax: Code(s): J93.9 - Pneumothorax, unspecified Status: Acute Assessment and Plan: At least 2 years history of chronic small left apical pneumothorax, first documented 06/21/2018. She had a fall in January 2014 hitting her left chest on the side of the tub, presented to the ER with small amount of discoid atelectasis. This might have been the cause of the small pneumothorax which could have developed over the next few days but no follow up CXR was taken until 2018 when it appeared without symptoms. She has never smoked. When she was diagnosed with the pneumothorax, she had a history of mild shortness of breath for 15 years. She does not need to have any intervention for this finding. History of Present Illness History of Present Illness Consult date: 06/24/20 Requesting physician: Michael Porter MD Reason for consult: pleural effusion Chief complaint: small bowel obstruction Narrative: NEW: Balbina Lopez is an 80 yo female never smoker admitted Sept 1 with abdominal pain, N and V after eating pizza.. She had a CT abd-pelvis showing sbo with transition point in the RLQ. NG was placed, NPO, IVF given while continuing to monitor her. CXR on admission showed bibasilar infiltrates and small Right effusion with small chronic Left pneumothorax. She was on room air until this am 06/24/20 around 9:00 am when she developed shortness of breath associated with increase in BP with a drop in her saturation. On admission, she was on room air with saturation 95%. This am, she required 5 L/min to maintain a saturation of 91%. CXR showed increase in bibasilar infiltrates. CTA chest showed a large right pleural effusion with atelectasis of the RLL, small left pleural effusion and chronic small left pneumothorax. She had a thoracentesis with a removal of 1 L bloody fluid with a normal pH 7.36, 14 k rbc, 1200 wbc with unremarkable differential - 25% neutrophils, 2 % lymphs, 34% monocytes, 32% macrophages, 7% mesothelial cells. She feels better, saturation is improved now 98% on 5 L/min, so this can be weaned lower. She has not had a fever or other signs of pneumonia, no cough or sputum. PMH: HTN, anxiety, hyperlipidemia, chronic small Left pneumothorax since 2018 found incidentally on imaging *06/24/2020 CTA chest 1. No pulmonary embolism. 2. Large right pleural effusion causing atelectasis of much of the right lower lobe. 3. Small left pleural effusion causing moderate left lower lobe atelectasis. 4. Chronic left-sided pneumothorax without definite interval change from prior examinations. *06/22/2020 CT
[2020-06-25] VITALS (16 sets, daily range): BP systolic 156–186; BP diastolic 53–65; PULSE 53–76; RESP 12–24; TEMP 36.4–37.2; O2SAT 93–98; BMI 23.5
[2020-06-25] MEDS: METOPROLOL TARTRATE INJ 5 MG/5 ML VIAL IV PUSH ×3 (05:38→18:11)
[2020-06-25] MEDS: hydrALAZINE HCL 20 MG/ML VIAL 10 MG IV PUSH (06:39)
[2020-06-25 06:51] LABS: Hematocrit 36.1 % (37.0-47.0); Mean Corpuscular HGB Conc 33.2 g/dl (32-36); Mean Corpuscular Hemoglobin 33.6 pg (26-34); Mean Corpuscular Volume 101.1 fl (80-100); Mean Platelet Volume 10.1 fl (7.4-10.4); Platelet Count Result 231 k/mm3 (150-375); Red Blood Count 3.57 M/mm3 (4.2-5.4); Red Cell Distribution Width 15.3 % (11.5-14.5); White Blood Count 9.9 K/mm3 (4.5-10.0)
--- NOTE | 2020-06-25 07:01 | PM.PNGS ---
Progress Note: A&P Assessment and Plan (1) Small bowel obstruction: Code(s): K56.609 - Unspecified intestinal obstruction, unspecified as to partial versus complete obstruction Status: Acute Assessment and Plan: KUB reviewed and loop of small bowel in the lower abdomen seems to be smaller. Respiratory status more stable, will proceed with Gastrografin upper GI small-bowel follow-through this morning. (2) Pleural effusion: Code(s): J90 - Pleural effusion, not elsewhere classified Status: Acute Assessment and Plan: Dr. Panda's and 's consultations and care appreciated. Breathing status improved but still on oxygen. Subjective Subjective Date/Time Seen: 06/25/20 07:01 Patient reports: no new complaints (Breathing better, no abdominal pain), no bowel movement and afebrile Review of Systems Review of Systems: All systems reviewed & are unremarkable except as noted in HPI and below Constitutional: Constitutional: Denies chills, Denies fever(s) and Denies headache(s) Cardiovascular: Cardiovascular: Denies chest pain and Denies dyspnea Respiratory: Respiratory: Denies cough, Denies hemoptysis and Reports dyspnea ( much better, still on some oxygen) Gastrointestinal: Gastrointestinal: Reports as per HPI, Denies abdominal pain and Denies GI cramping Neurologic: Denies confusion and Denies headache(s) Exam Const: General: comfortable and no acute distress; No confusion Orientation/consciousness: patient oriented x3 and No confusion GI: Inspection: normal to inspection, non-distended and other ( NG canister nearly full, dark green) GI Palp: Yes Soft to palpation, No Tenderness to palpation present (GI), No Guarding due to palpation present (GI) and No Rebound tenderness present Auscultation: normal bowel sounds Neuro: General: patient oriented x3, no focal motor deficits and No confusion Extrem: General: no calf tenderness and no edema Psych: Affect: normal affect Insight: Good insight present (Psych) Judgement: Good judgement present (Psych) Objective Data Vital Signs Vital Signs: Vital Signs - 24 hr 06/24/20 07:22 06/24/20 08:08 06/24/20 08:25 Temperature Pulse Rate 70 Respiratory Rate 22 H Blood Pressure 154/56 H Pulse Oximetry 90 95 95 06/24/20 09:35 06/24/20 11:55 06/24/20 11:56 Temperature 36.8 C Pulse Rate 89 88 88 Respiratory Rate 24 H Blood Pressure 181/66 H 184/70 H Pulse Oximetry 91 91 06/24/20 13:25 06/24/20 13:30 06/24/20 13:45 Temperature 36.7 C Pulse Rate 70 73 94 Respiratory Rate 24 H 24 H 24 H Blood Pressure 179/75 H 178/74 H 170/71 H Pulse Oximetry 93 95 94 06/24/20 14:08 06/24/20 16:00 06/24/20 17:23 Temperature Pulse Rate 70 85 Respiratory Rate Blood Pressure Pulse Oximetry 95 06/24/20 18:25 06/24/20 18:33 06/24/20 20:00 Temperature 36.7 C Pulse Rate 65 66 Respiratory Rate 20 Blood Pressure 146/72 H Pulse Oximetry 96 06/24/20 22:00 06/24/20 23:33 06/25/20 00:00 Temperature 37.1 C 36.4 C Pulse Rate 75 66 70 Respiratory Rate 18 12 Blood Pressure 156/75 H 156/60 H Pulse Oximetry 95 96 06/25/20 04:00 06/25/20 05:38 06/25/20 06:00 Temperature 37.2 C Pulse Rate 72 54 L 65 Respiratory Rate 18 Blood Pressure 182/62 H Pulse Oximetry 95 Intake/Output Intake/Output: Intake & Output 06/22/20 06/23/20 06/24/20 06/25/20 23:59 23:59 23:59 23:59 Intake Total 1209 1998 Output Total 947 336 2067 [address] [id number] 1454 50 -733 Meds/Results Medications: Active Medications Generic Name Dose Route Start Last Admin Trade Name Javed PRN Reason Stop Dose Admin Enoxaparin Sodium 40 mg 06/23/20 09:00 06/24/20 09:32 Lovenox SUB-Q Not Given DAILY JOZEF Famotidine 20 mg 06/22/20 21:00 06/24/20 21:11 Pepcid Iv IV PUSH 20 mg Q12HR JOZEF Administration Hydralazine HCl 10 mg 06/23/20 10:08 06/25/20 06:39 Apresoline Hcl Inj
[2020-06-25 07:09] LABS: Anion Gap 3 mmol/L (8-16); Blood Urea Nitrogen 15 mg/dL (7-17); Calcium 8.3 mg/dL (8.4-10.2); Carbon Dioxide 26 mmol/L (22-30); Chloride 111 mmol/L (98-107); Estimated CRCL calculation 65 ml/min; Estimated Glomerular Filt Rate > 60; Glucose 110 mg/dL (65-105); Potassium 3.6 mmol/L (3.4-5.0); Sodium 140 mmol/L (137-145)
[2020-06-25] MEDS: MORPHINE SULFATE 2 MG/ML INJ 1 MG IV PUSH (08:30)
[2020-06-25] MEDS: ENOXAPARIN 40 MG/0.4 ML SYRINGE SUB-Q (08:31)
[2020-06-25] MEDS: FAMOTIDINE 20 MG/2 ML VIAL IV PUSH ×2 (08:31→20:32)
[2020-06-25] MEDS: SODIUM CHLORIDE 0.9% IV 1,000 ML 80 ML IV CONT (08:42)
[2020-06-25] MEDS: ONDANSETRON INJ 4 MG/2 ML VIAL IV PUSH ×2 (10:57→16:39)
[2020-06-25] MEDS: IBUPROFEN IV 400 MG in SODIUM CHLORIDE 0.9% IV 100 ML 200 MG IVPB (12:27)
--- NOTE | 2020-06-25 13:58 | PM.IMPN ---
Progress Note: A&P Assessment and Plan (1) Small bowel obstruction: Code(s): K56.609 - Unspecified intestinal obstruction, unspecified as to partial versus complete obstruction Status: Acute Assessment and Plan: patient had upper GI series and shows obstruction, surgery service is following (2) Shortness of breath at rest: Code(s): R06.02 - Shortness of breath Status: Acute Assessment and Plan: 06/25/20 13:58 Balbina Lopez is a 80 year old female admitted for a small-bowel obstruction and seen by surgery service this morning patient had complaint of shortness of breath and chest pain with coughing, consultation for medical management was requested, EKG was nondiagnostic, 1st tropes negative, ABG showed hypoxia on 4 L, and her oxygen was increased to 5 L, to further evaluate patient had a CTA of the chest there was pulmonary emboli however scan showed large pleural effusion on right side, patient had a thoracentesis and 1000 cc was removed, labs are ordered and pending, now that 1000 cc of fluid is removed repeat CT scan to further evaluate if patient has a pneumonia or malignancy and further recommendation to follow, we will do cardiac echo to further evaluate, patient with small bowel obstruction patient appears in pain, nauseated vomiting patient had upper GI and shows patient has obstruction, patient also complains shortness of breath with little better than yesterday, denies any fever or chills, patient is seen by surgery service and 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 and further recommendation to follow (3) Pleural effusion: Code(s): J90 - Pleural effusion, not elsewhere classified Status: Acute Assessment and Plan: plan is above Subjective Date/time seen: 06/25/20 13:58 Balbina Lopez is a 80 year old female admitted for a small-bowel obstruction and seen by surgery service this morning patient had complaint of shortness of breath and chest pain with coughing, consultation for medical management was requested, EKG was nondiagnostic, 1st tropes negative, ABG showed hypoxia on 4 L, and her oxygen was increased to 5 L, to further evaluate patient had a CTA of the chest there was pulmonary emboli however scan showed large pleural effusion on right side, patient had a thoracentesis and 1000 cc was removed, labs are ordered and pending, now that 1000 cc of fluid is removed repeat CT scan to further evaluate if patient has a pneumonia or malignancy and further recommendation to follow, we will do cardiac echo to further evaluate, patient with small bowel obstruction patient appears in pain, nauseated vomiting patient had upper GI and shows patient has obstruction, patient also complains shortness of breath with little better than yesterday, denies any fever or chills, patient is seen by surgery service and 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 and further recommendation to follow Review of Systems Review of Systems: All systems reviewed & are unremarkable except as noted in HPI and below Exam Const: General: no acute distress and uncomfortable HENMT: General nose exam: Normal nares present Mouth: Yes moist mucous membranes Eyes: Sclera: sclerae normal Neck: Neck: supple Resp: Other: bilateral poor air entry with rhonchi diminishing air entry on the right Cardio: Rate: regular rate Rhythm: regular rhythm GI: Other: bowel sounds are faint diffusely tender Skin: General skin exam: normal color Neuro: Speech: normal speech Sensory Exam: normal sensation Extrem: General: normal to inspection Psych: Affect: Anxious affect present Objective Data Vital Signs Vital Signs: Vital Signs - 24 hr 06/24/20 14:08 06/24/20 16:00 06/24/20 17:23 Temperature Pulse Rate 70 85 Respiratory Rate Blood Pressure Pulse Oximetry 95 06/24/20 18:25 06/24/20 18:33 06/24/20 20:00 Temperature 98.1 F Pulse Rate 65 66 Respiratory Rate 20 Blood Pressure 146/72 H Pulse O
[2020-06-25] MEDS: MORPHINE SULFATE 4 MG/ML INJ IV PUSH ×2 (16:39→20:32)
[2020-06-25] MEDS: PHENOL/SOD PHENO SPRAY CHERRY (*BKC) 1 SPRAY MUCOUS MEM (18:31)
--- NOTE | 2020-06-25 18:58 | PM.PNPUL ---
Progress Note: A&P Assessment and Plan (1) Pleural effusion: Code(s): J90 - Pleural effusion, not elsewhere classified Status: Acute Assessment and Plan: She has a new large right bloody pleural effusion without a PE which developed after she was admitted 06/22. Initial CXR showed a small effusion and infiltrates. Sept 3 she developed shortness of breath with desaturation requiring starting O2, felt better after 1 L fluid tapped. - pH and differential on the fluid are normal, pH 7.36, large amount of blood with almost 15 K rbc and 1251 wbc normal differential. - Bloody effusions can be due to trauma, PE, TB, cancer. She had no recent trauma, CTA excludes a pulmonary embolus, no history to suggest TB although it is possible. - 80 yo with a small bowel obstruction which is not much improved. - Will request repeat tap of the right pleural effusion and obtain cytology, AFB and fungal studies. Malignancy is still a concern. 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 She had a fall in January 2014 hitting her left chest on the side of the tub, presented to the ER with small amount of discoid atelectasis. This might have been the cause of the small pneumothorax which could have developed over the next few days but no follow up CXR was taken until 2018 when it appeared without symptoms. She has never smoked. When she was diagnosed with the pneumothorax, she had a history of mild shortness of breath for 15 years. She does not need to have any intervention for this finding. Subjective Date/time seen: 06/25/20 18:58 This 80 yo female is seen in follow up for large hemorrhagic pleural effusion that was tapped 06/24 with removal off 1 L bloody fluid. She is still requiring 5 L/min O2 to maintain O2 sat 91%. Se has a persistent sbo. Review of Systems Review of Systems: All systems reviewed & are unremarkable except as noted in HPI and below Exam Const: General: no acute distress (resting comfortably) Neck: Neck: no JVD Lymphatic: lymphadenopathy not noted Resp: Auscultation: diminished lung sounds (right base) Cardio: Rate: regular rate Rhythm: regular rhythm Skin: General skin exam: normal color Extrem: General: normal to inspection Objective Data Vital Signs Vital Signs: Vital Signs - 24 hr 06/24/20 20:00 06/24/20 22:00 06/24/20 23:33 Temperature 37.1 C Pulse Rate 66 75 66 Respiratory Rate 18 Blood Pressure 156/75 H Pulse Oximetry 95 06/25/20 00:00 06/25/20 04:00 06/25/20 05:38 Temperature 36.4 C Pulse Rate 70 72 54 L Respiratory Rate 12 Blood Pressure 156/60 H Pulse Oximetry 96 06/25/20 06:00 06/25/20 08:00 06/25/20 08:30 Temperature 37.2 C Pulse Rate 65 63 Respiratory Rate 18 Blood Pressure 182/62 H Pulse Oximetry 95 93 06/25/20 08:54 06/25/20 12:00 06/25/20 12:22 Temperature 36.7 C Pulse Rate 75 76 Respiratory Rate 20 Blood Pressure 165/65 H 186/57 H Pulse Oximetry 96 06/25/20 12:24 06/25/20 14:00 06/25/20 16:00 Temperature 36.5 C Pulse Rate 76 62 76 Respiratory Rate 20 Blood Pressure 161/55 H Pulse Oximetry 94 06/25/20 18:00 06/25/20 18:11 Temperature 36.9 C Pulse Rate 57 L 61 Respiratory Rate 24 H Blood Pressure 162/53 H Pulse Oximetry 97 Intake/Output Intake/Output: Intake & Output 06/22/20 06/23/20 06/24/20 06/25/20 23:59 23:59 23:59 23:
[2020-06-26] VITALS (18 sets, daily range): BP systolic 147–180; BP diastolic 50–78; PULSE 60–89; RESP 18–22; TEMP 36.1–36.7; O2SAT 94–97
[2020-06-26] MEDS: METOPROLOL TARTRATE INJ 5 MG/5 ML VIAL IV PUSH ×5 (00:21→23:31)
[2020-06-26] MEDS: SODIUM CHLORIDE 0.9% IV 1,000 ML 80 ML IV CONT ×2 (00:23→13:04)
[2020-06-26] MEDS: hydrALAZINE HCL 20 MG/ML VIAL 10 MG IV PUSH ×2 (01:14→07:03)
[2020-06-26] MEDS: ONDANSETRON INJ 4 MG/2 ML VIAL IV PUSH ×3 (01:46→22:26)
[2020-06-26] MEDS: MORPHINE SULFATE 4 MG/ML INJ IV PUSH ×3 (01:49→22:27)
[2020-06-26 05:38] LABS: Hematocrit 38.6 % (37.0-47.0); Mean Corpuscular HGB Conc 33.7 g/dl (32-36); Mean Corpuscular Hemoglobin 33.4 pg (26-34); Mean Corpuscular Volume 99.2 fl (80-100); Mean Platelet Volume 9.6 fl (7.4-10.4); Platelet Count Result 249 k/mm3 (150-375); Red Blood Count 3.89 M/mm3 (4.2-5.4); Red Cell Distribution Width 15.5 % (11.5-14.5); White Blood Count 12.7 K/mm3 (4.5-10.0)
[2020-06-26 07:15] LABS: Anion Gap 4 mmol/L (8-16); Blood Urea Nitrogen 23 mg/dL (7-17); Calcium 8.3 mg/dL (8.4-10.2); Carbon Dioxide 28 mmol/L (22-30); Chloride 113 mmol/L (98-107); Estimated CRCL calculation 65 ml/min; Estimated Glomerular Filt Rate > 60; Glucose 111 mg/dL (65-105); Magnesium 2.4 mg/dL (1.6-2.3); Potassium 3.4 mmol/L (3.4-5.0); Sodium 145 mmol/L (137-145)
[2020-06-26] MEDS: FAMOTIDINE 20 MG/2 ML VIAL IV PUSH ×2 (08:14→20:58)
--- NOTE | 2020-06-26 09:07 | PCNFU ---
Nutrition Follow-Up Complete: Altered GI fxn as related to SBO as evidenced by NPO x 4 days. Goal: Meet estimated nutrition needs Limited progress towards goal. We will continue current goal. Pt current nutrition is NPO x 5 days. Nutrition recommendation: PPN if diet does not advance by day 7 NPO. Last recorded weight is 62.1 kg. Bowel Motility: No BM reported, hypoactive bowel sounds. Labs Reviewed:BUN 23,Cr 0.5, Mg 2.4 Meds Noted:Zofran,Pepsid, NS at 80ml/hr, Lopressor Additional Notes: Patient remains NPO x 5 days. Plans for Thoracentesis today. Intermittent nausea noted. NGT in place. If patient remains NPO x 7 days would recommend starting PPN-Clinimix E 4.25/250 ml Lipid Emulsion at 80 ml/hr which will provide patient with 1153 kcals and 82 gms protein. Monitoring: Will monitor every 3 days.
--- NOTE | 2020-06-26 09:12 | PM.PNGS ---
Progress Note: A&P Assessment and Plan (1) Small bowel obstruction: Code(s): K56.609 - Unspecified intestinal obstruction, unspecified as to partial versus complete obstruction Status: Acute Assessment and Plan: still no bowel fxn, UGI reviewed, plan for OR in am if no interval improvement, cont NG decompression for now (2) Pleural effusion: Code(s): J90 - Pleural effusion, not elsewhere classified Status: Acute Assessment and Plan: s/p thoracentesis, stable (3) Pneumothorax: Code(s): J93.9 - Pneumothorax, unspecified Status: Acute Assessment and Plan: chronic and stable Subjective Subjective Date/Time Seen: 06/26/20 09:12 pt reports no change, decreased abd pain but still no bowel fxn Review of Systems Constitutional: Constitutional: Denies body ache(s), Denies chills, Reports fatigue, Reports lethargy and Reports weakness Cardiovascular: Cardiovascular: Denies chest pain Respiratory: Respiratory: Reports dyspnea and Reports dyspnea on exertion Gastrointestinal: Gastrointestinal: Reports abdominal pain, Reports bloating, Reports constipation, Denies diarrhea, Reports nausea and Denies vomiting Exam Const: General: no acute distress Resp: Auscultation: diminished lung sounds Cardio: Rate: regular rate Rhythm: regular rhythm GI: Other: soft, mod dist, minimal TTP mostly in RLQ Objective Data Vital Signs Vital Signs: Vital Signs - 24 hr 06/25/20 12:00 06/25/20 12:22 06/25/20 12:24 Temperature 36.7 C Pulse Rate 75 76 76 Respiratory Rate 20 Blood Pressure 186/57 H Pulse Oximetry 96 06/25/20 14:00 06/25/20 16:00 06/25/20 18:00 Temperature 36.5 C 36.9 C Pulse Rate 62 76 57 L Respiratory Rate 20 24 H Blood Pressure 161/55 H 162/53 H Pulse Oximetry 94 97 06/25/20 18:11 06/25/20 20:00 06/25/20 22:00 Temperature 36.8 C Pulse Rate 61 53 L 60 Respiratory Rate 20 Blood Pressure 162/60 H Pulse Oximetry 98 06/26/20 00:00 06/26/20 00:21 06/26/20 02:00 Temperature 36.7 C Pulse Rate 61 63 62 Respiratory Rate 20 Blood Pressure 174/78 H Pulse Oximetry 97 06/26/20 04:00 06/26/20 05:20 06/26/20 06:00 Temperature 36.3 C L Pulse Rate 61 72 78 Respiratory Rate 22 H Blood Pressure 180/55 H Pulse Oximetry 94 06/26/20 06:59 06/26/20 08:00 Temperature Pulse Rate 66 Respiratory Rate Blood Pressure 174/51 H 152/56 H Pulse Oximetry Intake/Output Intake/Output: Intake & Output 06/23/20 06/24/20 06/25/20 06/26/20 23:59 23:59 23:59 23:59 Intake Total 1998 1999 1524 610 Output Total 5 3 1950 875 Balance 1454 -50 -426 -265 Meds/Results Medications: Active Medications Generic Name Dose Route Start Last Admin Trade Name Freq PRN Reason Stop Dose Admin Enoxaparin Sodium 40 mg 06/23/20 09:00 06/25/20 08:31 Lovenox SUB-Q 40 mg DAILY JOZEF Administration Famotidine 20 mg 06/22/20 21:00 06/26/20 08:14 Pepcid Iv IV PUSH 20 mg Q12HR JOZEF Administration Hydralazine HCl 10 mg 06/23/20 10:08 06/26/20 07:03 Apresoline Hcl Inj IV PUSH 10 mg Q4HR PRN Administration Blood Pressure - High Sodium Chloride 1,000 mls @ 80 mls/hr 06/22/20 04:50 06/26/20 00:23 Normal Saline Iv IV CONT 80 mls/hr .[id number] JOZEF Administration Ibuprofen 400 mg/ Sodium 104 mls @ 200 mls/hr 06/22/20 11:12 06/25/20 12:59 Chloride IVPB Infused Q6H PRN Infusion Pain Rated 1-3 Ampicillin Sodium/Sulbactam Sodium 3 gm in 100 mls @ 200 mls/hr 06/26/20 12:00 Unasyn 3 Gm/Ns 100 Ml IVPB Q6HR JOZEF Metoprolol Tartrate 5 mg 06/22/20 06:35 06/26/20 05:20 Lopressor Inj IV PUSH 5 mg Q6HR JOZEF Administration Morphine Sulfate 4 mg 06/22/20 04:49 06/26/20 05:26 Morphine Sulfate Inj IV PUSH 4 mg Q2H PRN Administration Pain Rated 7-10 Morphine Sulfate 1 mg 06/22/20 11:12 06/25/20 08:30 Morphine Sulfate Inj IV PUSH 1 mg
[2020-06-26 10:54] LABS: Albumin Pleural Fluid 2.4 g/dL
[2020-06-26] MEDS: ENOXAPARIN 40 MG/0.4 ML SYRINGE SUB-Q (11:15)
[2020-06-26] MEDS: AMPICILLIN SULB 3 GM/NS 100 ML 3 GM/100 ML VIAL IVPB ×3 (12:15→23:30)
--- NOTE | 2020-06-26 13:43 | PM.IMPN ---
Progress Note: A&P Assessment and Plan (1) Small bowel obstruction: Code(s): K56.609 - Unspecified intestinal obstruction, unspecified as to partial versus complete obstruction Status: Acute Assessment and Plan: patient had upper GI series and shows obstruction, surgery service is following (2) Shortness of breath at rest: Code(s): R06.02 - Shortness of breath Status: Acute Assessment and Plan: 06/26/20 13:43 Balbina Lopez is a 80 year old female admitted for a small-bowel obstruction and seen by surgery service this morning patient had complaint of shortness of breath and chest pain with coughing, consultation for medical management was requested, EKG was nondiagnostic, 1st tropes negative, ABG showed hypoxia on 4 L, and her oxygen was increased to 5 L, to further evaluate patient had a CTA of the chest there was pulmonary emboli however scan showed large pleural effusion on right side, patient had a thoracentesis and 1000 cc was removed, labs are ordered and pending, now that 1000 cc of fluid is removed repeat CT scan to further evaluate if patient has a pneumonia or malignancy and further recommendation to follow, we will do cardiac echo to further evaluate, Today patient is feeling better did have a a small liquidy BM, sitting in the chair not a short of breath, patient seen by surgery service will have a exploratory laparotomy tomorrow, patient seen by pulmonary service and started the patient on ampicillin, patient is clinically stable will continue present managed,will continue to monitor will follow-up surgery tomorrow. (3) Pleural effusion: Code(s): J90 - Pleural effusion, not elsewhere classified Status: Acute Assessment and Plan: plan is above Subjective Date/time seen: 06/26/20 13:43 Balbina Lopez is a 80 year old female admitted for a small-bowel obstruction and seen by surgery service this morning patient had complaint of shortness of breath and chest pain with coughing, consultation for medical management was requested, EKG was nondiagnostic, 1st tropes negative, ABG showed hypoxia on 4 L, and her oxygen was increased to 5 L, to further evaluate patient had a CTA of the chest there was pulmonary emboli however scan showed large pleural effusion on right side, patient had a thoracentesis and 1000 cc was removed, labs are ordered and pending, now that 1000 cc of fluid is removed repeat CT scan to further evaluate if patient has a pneumonia or malignancy and further recommendation to follow, we will do cardiac echo to further evaluate, Today patient is feeling better did have a a small liquidy BM, sitting in the chair not a short of breath, patient seen by surgery service will have a exploratory laparotomy tomorrow, patient seen by pulmonary service and started the patient on ampicillin, patient is clinically stable will continue present managed,will continue to monitor will follow-up surgery tomorrow. Review of Systems Review of Systems: All systems reviewed & are unremarkable except as noted in HPI and below Exam Const: General: no acute distress and uncomfortable HENMT: General nose exam: Normal nares present Mouth: Yes moist mucous membranes Eyes: Sclera: sclerae normal Neck: Neck: supple Resp: Other: bilateral poor air entry with rhonchi diminishing air entry on the right Cardio: Rate: regular rate Rhythm: regular rhythm GI: Other: bowel sounds are faint diffusely tender Skin: General skin exam: normal color Neuro: Speech: normal speech Sensory Exam: normal sensation Extrem: General: normal to inspection Psych: Affect: Anxious affect present Objective Data Vital Signs Vital Signs: Vital Signs - 24 hr 06/25/20 14:00 06/25/20 16:00 06/25/20 18:00 Temperature 97.7 F 98.5 F Pulse Rate 62 76 57 L Respiratory Rate 20 24 H Blood Pressure 161/55 H 162/53 H Pulse Oximetry 94 97 06/25/20 18:11 06/25/20 20:00
--- NOTE | 2020-06-26 21:51 | PM.PNPUL ---
Progress Note: A&P Assessment and Plan (1) Aspiration pneumonia: Qualifiers: Aspiration pneumonia type: unspecified Laterality: bilateral Lung location: lower lobe of lung Qualified Code(s): J69.0 - Pneumonitis due to inhalation of food and vomit Code(s): J69.0 - Pneumonitis due to inhalation of food and vomit Status: Acute Assessment and Plan: It is very possible that she has aspiration pneumonia given her history and radiographic finds as well as exam. - will restar antibiotics with Unasyn 3 gm IV Q6h for 5 days - incentiive spirometer Q2h while awake - up into chair bid and encourage mobilzation with PT/OT - flutter valve may also be helpful (2) Bilateral atelectasis: Code(s): J98.11 - Atelectasis Status: Acute (3) Small bowel obstruction: Code(s): K56.609 - Unspecified intestinal obstruction, unspecified as to partial versus complete obstruction Status: Acute (4) Pneumothorax: Code(s): J93.9 - Pneumothorax, unspecified Status: Acute Subjective Date/time seen: 06/26/20 21:51 Interval history: Feeling ok, some dyspnea and cough with movement. We are being consulted for right pleural effusion that appeared clear by Thoracentesis description yet showed high volume of RBC on cell count. The patient was admitted with small bowel obstruction complication by nausea and vomiting. A repeat CT chest after the thoracentesis shows residual bilateral lower lobe consolidations/atelectasis with adjacent mild pleural effusions. WBC was coming down over past few days but has gone up today without fever. Review of Systems Review of Systems: All systems reviewed & are unremarkable except as noted in HPI and below Exam Const: General: comfortable and no acute distress Eyes: General: appearance normal, both eyes and all related structures Neck: Neck: supple and no JVD Cardio: Rate: regular rate Rhythm: regular rhythm Heart sounds: no murmurs GI: Inspection: non-distended Auscultation: abnormal bowel sounds (no bowel sounds ) Skin: General skin exam: normal color and no rashes or lesions noted Neuro: Cognition (Neuro): normal cognition Speech: normal speech Extrem: General: normal to inspection Psych: Mental Status: mental status grossly normal Affect: normal affect Objective Data Vital Signs Vital Signs: Vital Signs - 24 hr 06/25/20 22:00 06/26/20 00:00 06/26/20 00:21 Temperature 36.8 C Pulse Rate 60 61 63 Respiratory Rate 20 Blood Pressure 162/60 H Pulse Oximetry 98 06/26/20 02:00 06/26/20 04:00 06/26/20 05:20 Temperature 36.7 C Pulse Rate 62 61 72 Respiratory Rate 20 Blood Pressure 174/78 H Pulse Oximetry 97 06/26/20 06:00 06/26/20 06:59 06/26/20 08:00 Temperature 36.3 C L 36.4 C Pulse Rate 78 70 Respiratory Rate 22 H 20 Blood Pressure 180/55 H 174/51 H 152/56 H Pulse Oximetry 94 96 06/26/20 10:48 06/26/20 12:00 06/26/20 12:16 Temperature Pulse Rate 67 74 Respiratory Rate Blood Pressure Pulse Oximetry 94 06/26/20 14:00 06/26/20 16:00 06/26/20 17:17 Temperature 36.1 C L Pulse Rate 67 67 75 Respiratory Rate 18 Blood Pressure 147/50 H Pulse Oximetry 97 06/26/20 18:00 Temperature 36.2 C L Pulse Rate 67 Respiratory Rate 20 Blood Pressure 175/63 H Pulse Oximetry 96 Intake/Output Intake/Output: Intake & Output 06/23/20 06/24/20 06/25/20 06/26/20 23:59 23:59 23:59 23:59 Intake Total 1998 1999 1524 1810 Output Total 545 0 1950 1525 Balance 1676 -69 -361 285 Meds/Results Medications: Active Medications Generic Name Dose Route Start Last Admin Trade Name Javed PRN Reason Stop Dose Admin Enoxaparin Sodium 40 mg 06/23/20 09:00 06/26/20 11:15 Lovenox SUB-Q 40 mg DAILY JOZEF Administration Famotidine 20 mg 06/22/20 21:00 06/26/20 20:58 Pepcid Iv IV PUSH 20 mg Q12HR JOZEF Administration Hydralazine HCl 10 mg 06/23/20 10:08 09
[2020-06-27] VITALS (20 sets, daily range): BP systolic 154–197; BP diastolic 50–82; PULSE 50–83; RESP 16–30; TEMP 32.2–37.2; O2SAT 91–100
[2020-06-27] MEDS: hydrALAZINE HCL 20 MG/ML VIAL 10 MG IV PUSH ×2 (00:25→20:23)
[2020-06-27 04:04] LABS: Amylase, Pleural Fluid 15 U/L
[2020-06-27] MEDS: SODIUM CHLORIDE 0.9% IV 1,000 ML 80 ML IV CONT (04:37)
[2020-06-27] MEDS: ONDANSETRON INJ 4 MG/2 ML VIAL IV PUSH ×2 (04:41→09:58)
[2020-06-27] MEDS: MORPHINE SULFATE 4 MG/ML INJ IV PUSH (04:41)
[2020-06-27] MEDS: AMPICILLIN SULB 3 GM/NS 100 ML 3 GM/100 ML VIAL IVPB ×3 (05:39→18:17)
[2020-06-27] MEDS: METOPROLOL TARTRATE INJ 5 MG/5 ML VIAL IV PUSH ×3 (05:39→18:17)
[2020-06-27 05:41] LABS: Hematocrit 35.7 % (37.0-47.0); Hemoglobin 11.7 g/dL (12.0-15.0); Mean Corpuscular HGB Conc 32.8 g/dl (32-36); Mean Corpuscular Hemoglobin 32.9 pg (26-34); Mean Corpuscular Volume 100.3 fl (80-100); Mean Platelet Volume 10.2 fl (7.4-10.4); Platelet Count Result 244 k/mm3 (150-375); Red Blood Count 3.56 M/mm3 (4.2-5.4); Red Cell Distribution Width 15.7 % (11.5-14.5); White Blood Count 6.6 K/mm3 (4.5-10.0)
[2020-06-27 05:41] LABS: Glucose Pleural Fluid 129 mg/dL; LDH Pleural Fluid 135 U/L; Total Protein Pleural Fluid 3.4 g/dL
[2020-06-27 05:53] LABS: Anion Gap 3 mmol/L (8-16); Blood Urea Nitrogen 23 mg/dL (7-17); Calcium 8.6 mg/dL (8.4-10.2); Carbon Dioxide 29 mmol/L (22-30); Chloride 114 mmol/L (98-107); Estimated CRCL calculation 65 ml/min; Estimated Glomerular Filt Rate > 60; Glucose 109 mg/dL (65-105); Potassium 3.2 mmol/L (3.4-5.0); Sodium 146 mmol/L (137-145)
--- NOTE | 2020-06-27 07:08 | WPDANESEPP ---
Anes - Eval Pre Procedure Procedure: Operation Date: 06/24/20 12:00 Proposed Procedures p Exploratory Laparotomy, Possible Bowel Resection - Michael Porter MD Operation Date: 06/27/20 07:30 Proposed Procedures p Exploratory Laparotomy, Pos Bowel Resec - Mireya Christensen MD Date/Time: 06/27/20 07:08 Surgeon: Fermin Pre Op Diagnosis: small bowel obstruction Patient Data Age: 80 Gender: F Height: 5 ft 4 in Weight: 62.1 kg Last Vital Signs Temp 36.4 C 06/27/20 00:37 Pulse 62 06/27/20 05:39 Resp 18 06/27/20 00:37 BP 180/65 H 06/27/20 00:37 Pulse Ox 100 06/27/20 00:37 Allergies Allergy/AdvReac Type Severity Reaction Status Date / Time No Known Allergies Allergy Unverified 06/21/18 16:26 Home Medications Medication Instructions Recorded Confirmed Type metoprolol tartrate 25 mg PO BID 06/22/20 06/22/20 History pravastatin 20 mg PO DAILY 06/22/20 06/22/20 History Laboratory Tests 06/24/20 06/26/20 06/27/20 13:31 06:20 05:04 WBC 6.6 K/mm3 K/mm3 (4.5-10.0) RBC 3.56 M/mm3 L M/mm3 (4.2-5.4) Hgb 11.7 g/dL L g/dL (12.0-15.0) Hct 35.7 % L % (37.0-47.0) MCV 100.3 fl H fl (80-100) MCH 32.9 pg pg (26-34) MCHC 32.8 g/dl g/dl (32-36) RDW 15.7 % H % (11.5-14.5) Plt Count 244 k/mm3 k/mm3 (150-375) MPV 10.2 fl fl (7.4-10.4) Sodium 145 mmol/L mmol/L (137-145) Potassium 3.4 mmol/L mmol/L (3.4-5.0) Chloride 113 mmol/L H mmol/L (98-107) Carbon Dioxide 28 mmol/L mmol/L (22-30) Anion Gap 4 mmol/L L mmol/L (8-16) BUN 23 mg/dL H mg/dL (7-17) Creatinine 0.50 mg/dL L mg/dL (0.7-1.0) Estim Creat Clear Calc 65 ml/min ml/min Estimated GFR > 60 (59 - ) Glucose 111 mg/dL H mg/dL (65-105) Calcium 8.3 mg/dL L mg/dL (8.4-10.2) Magnesium 2.4 mg/dL H mg/dL (1.6-2.3) Pleural Total Protein 3.4 g/dL g/dL Pleural Albumin 2.4 g/dL g/dL Pleural LDH 135 U/L U/L Pleural Glucose 129 mg/dL mg/dL Pleural Amylase 15 U/L U/L Pleural Cholesterol 51 mg/dL mg/dL Pleural Triglycerides 31 mg/dL mg/dL 06/27/20 05:04 WBC RBC Hgb Hct MCV MCH MCHC RDW Plt Count MPV Sodium 146 mmol/L H mmol/L (137-145) Potassium 3.2 mmol/L L mmol/L (3.4-5.0) Chloride 114 mmol/L H mmol/L (98-107) Carbon Dioxide 29 mmol/L mmol/L (22-30) Anion Gap 3 mmol/L L mmol/L (8-16) BUN 23 mg/dL H mg/dL (7-17) Creatinine 0.50 mg/dL L mg/dL (0.7-1.0) Estim Creat Clear Calc 65 ml/min ml/min Estimated GFR > 60 (59 - ) Glucose 109 mg/dL H mg/dL (65-105) Calcium 8.6 mg/dL mg/dL (8.4-10.2) Magnesium Pleural Total Protein Pleural Albumin Pleural LDH Pleural Glucose Pleural Amylase Pleural Cholesterol Pleural Triglycerides Patient hx anesthesia problems: none Family hx anesthesia problems: none PMFSH Past Medical History Medical History Anxiety Arthritis Hypertension Other and unspecified hyperlipidemia Pneumothorax chronic left apical pneumothorax since 06/21/2018, small right pleural effusion Surgical History Surgical History History of appendectomy History of back surgery 2 surgeries History of hysterectomy Family History Family History Father Mesothelioma Mother Cerebrovascular accident Social History Social History Smoking status: Never smoker Alcohol intake: never Substance use: never Gender identity (if v
--- NOTE | 2020-06-27 07:19 | WPDANESEFPP ---
Anes - Eval Final PreProcedure Day of Procedure 06/27/20 07:19 Patient weight: normal Heart: regular rate and rhythm Lungs: clear to auscultation Airway: Mallampati scale class II Neurological: alert and oriented Last oral intake: >/= 8 hours ASA classification: III Emergent: yes Anesthetic plan: proceed Anesthesia type and monitoring: general ETT and standard monitoring Informed Consent: The patient's anesthetic plan and its attendant risks and benefits were discussed with the patient/family/POA. Questions were solicited and answers provided to the satisfaction of the patient/family/POA.
[2020-06-27] MEDS: LACTATED RINGERS 1,000 ML 30 ML IV CONT (07:21)
--- NOTE | 2020-06-27 08:02 | PM.PROC ---
Procedure Note - Detailed Date of procedure: 06/27/20 Pre-op diagnosis: small bowel obstruction Post-op diagnosis: same Procedure performed: Exploratory laparotomy, lysis of adhesions Description of procedure: The patient was taken to the operating room and placed in the supine position. After adequate induction of general anesthesia, the patient was prepped and draped in the normal sterile fashion. A time-out was then done to verify the patient's identity, as well as the procedure being performed. I began by making a midline incision around umbilicus favoring the infraumbilical region. This incision was taken down through the subcutaneous tissue to the level of the fascia. I then opened the fascia to gain access into the peritoneal cavity. Once into the peritoneal cavity, a moderate amount of serous fluid was noted. I began by running the entirety of the small bowel. Proximally the small bowel was noted to be moderately dilated and this dilation continued to the level of the proximal ileum. In the right lower quadrant, I noted collapsed distal ileum. I did lysis of adhesions in the area to free up the proximal ileum. A single band was noted to constrict the proximal ileum and was the level of obstruction. I was able to lyse this adhesion and release the obstruction. At this point, I was able to run the entirety of the small bowel from the ligament of Treitz proximally to the ligament of the Treves distally. No other pathology was noted. I then ran the entirety of the colon which was noted to be unremarkable. I then checked the NG placement in the stomach, which was noted to be adequate. I then copiously irrigated the abdominal cavity. I then closed the fascia with 0 looped PDS suture. The skin was then closed with skin devika. The patient tolerated the procedure well and was extubated in the operating room postoperatively. She will be sent to the recovery room in stable condition. Implants: none Anesthesia: GETA Surgeon: Mireya Christensen MD Estimated blood loss (mL): 10 Drains: No Packing: No Pathology: none sent Complications: No immediate complications Condition: stable Disposition: PACU Findings: single band in right lower quadrant/pelvis causing obstruction in the proximal ileum
[2020-06-27] MEDS: LABETALOL HCL INJ 100 MG/20 ML VIAL IV PUSH (08:45)
[2020-06-27] MEDS: FAMOTIDINE 20 MG/2 ML VIAL IV PUSH ×2 (09:50→20:15)
[2020-06-27] MEDS: MORPHINE SULFATE 4 MG/ML INJ 2 MG IV PUSH ×2 (09:53→11:47)
--- NOTE | 2020-06-27 11:29 | PM.IMPN ---
Progress Note: A&P Assessment and Plan (1) Small bowel obstruction: Code(s): K56.609 - Unspecified intestinal obstruction, unspecified as to partial versus complete obstruction Status: Acute Assessment and Plan: patient had upper GI series and shows obstruction, surgery service is following (2) Shortness of breath at rest: Code(s): R06.02 - Shortness of breath Status: Acute Assessment and Plan: 06/27/20 11:29 Balbina Lopez is a 80 year old female admitted for a small-bowel obstruction and seen by surgery service this morning patient had complaint of shortness of breath and chest pain with coughing, consultation for medical management was requested, EKG was nondiagnostic, 1st tropes negative, ABG showed hypoxia on 4 L, and her oxygen was increased to 5 L, to further evaluate patient had a CTA of the chest there was pulmonary emboli however scan showed large pleural effusion on right side, patient had a thoracentesis and 1000 cc was removed, labs are ordered and pending, now that 1000 cc of fluid is removed repeat CT scan to further evaluate if patient has a pneumonia or malignancy and further recommendation to follow, we will do cardiac echo to further evaluate, on 06/26 patient was feeling better did have a a small liquidy BM, was sitting in the chair not as short of breath and on 06/26 patient had a small-bowel follow-through is still shows persistent obstruction, today patient was taken to OR and had exploratory laparotomy and release of obstruction, patient states the pain is still persist denies any nausea or vomiting, not passing any gas. patient was seen by pulmonary service and started the patient on ampicillin, patient is clinically stable will continue present managed,will continue to monitor will follow-up with surgery recommendations. (3) Pleural effusion: Code(s): J90 - Pleural effusion, not elsewhere classified Status: Acute Assessment and Plan: plan is above Subjective Date/time seen: 06/27/20 11:29 Balbina Lopez is a 80 year old female admitted for a small-bowel obstruction and seen by surgery service this morning patient had complaint of shortness of breath and chest pain with coughing, consultation for medical management was requested, EKG was nondiagnostic, 1st tropes negative, ABG showed hypoxia on 4 L, and her oxygen was increased to 5 L, to further evaluate patient had a CTA of the chest there was pulmonary emboli however scan showed large pleural effusion on right side, patient had a thoracentesis and 1000 cc was removed, labs are ordered and pending, now that 1000 cc of fluid is removed repeat CT scan to further evaluate if patient has a pneumonia or malignancy and further recommendation to follow, we will do cardiac echo to further evaluate, on 06/26 patient was feeling better did have a a small liquidy BM, was sitting in the chair not as short of breath and on 06/26 patient had a small-bowel follow-through is still shows persistent obstruction, today patient was taken to OR and had exploratory laparotomy and release of obstruction, patient states the pain is still persist denies any nausea or vomiting, not passing any gas. patient was seen by pulmonary service and started the patient on ampicillin, patient is clinically stable will continue present managed,will continue to monitor will follow-up with surgery recommendations. Review of Systems Review of Systems: All systems reviewed & are unremarkable except as noted in HPI and below Exam Const: General: no acute distress and uncomfortable HENMT: General nose exam: Normal nares present Mouth: Yes moist mucous membranes Other: NG tube in place Eyes: Sclera: sclerae normal Neck: Neck: supple Resp: Other: bilateral poor air entry with rhonchi diminishing air entry on the right Cardio: Rate: regular rate Rhythm: regular rhythm GI: Other: bowel sounds are faint diffusely tender Skin: G
[2020-06-27] MEDS: IBUPROFEN IV 400 MG in SODIUM CHLORIDE 0.9% IV 100 ML 200 MG IVPB (12:44)
--- NOTE | 2020-06-27 14:14 | PM.PNPUL ---
Progress Note: A&P Assessment and Plan (1) Aspiration pneumonia: Qualifiers: Aspiration pneumonia type: unspecified Laterality: bilateral Lung location: lower lobe of lung Qualified Code(s): J69.0 - Pneumonitis due to inhalation of food and vomit Code(s): J69.0 - Pneumonitis due to inhalation of food and vomit Status: Acute Assessment and Plan: It is very possible that she has aspiration pneumonia given her history and radiographic finds as well as exam. - continue antibiotics with Unasyn 3 gm IV Q6h for 5 days - incentiive spirometer Q2h while awake - up into chair bid and encourage mobilzation with PT/OT - flutter valve may also be helpful - check CXR periodically (2) Bilateral atelectasis: Code(s): J98.11 - Atelectasis Status: Acute (3) Small bowel obstruction: Code(s): K56.609 - Unspecified intestinal obstruction, unspecified as to partial versus complete obstruction Status: Acute (4) Pneumothorax: Code(s): J93.9 - Pneumothorax, unspecified Status: Acute Subjective Date/time seen: 06/27/20 14:14 Interval history: Went for exlap with lysis of adhesions for small bowel obstruction not responding to conservative measures today. Review of Systems Review of Systems: All systems reviewed & are unremarkable except as noted in HPI and below Exam Const: General: comfortable and no acute distress Eyes: General: appearance normal, both eyes and all related structures Neck: Neck: supple and no JVD Cardio: Rate: regular rate Rhythm: regular rhythm Heart sounds: no murmurs GI: Inspection: non-distended Auscultation: abnormal bowel sounds (no bowel sounds ) Skin: General skin exam: normal color and no rashes or lesions noted Neuro: Cognition (Neuro): normal cognition Speech: normal speech Extrem: General: normal to inspection Psych: Mental Status: mental status grossly normal Affect: normal affect Objective Data Vital Signs Vital Signs: Vital Signs - 24 hr 06/26/20 16:00 06/26/20 17:17 06/26/20 18:00 Temperature 36.2 C L Pulse Rate 67 75 67 Respiratory Rate 20 Blood Pressure 175/63 H Pulse Oximetry 96 06/26/20 20:00 06/26/20 22:00 06/26/20 23:31 Temperature 36.5 C Pulse Rate 89 61 60 Respiratory Rate 22 H Blood Pressure 168/60 H Pulse Oximetry 96 06/27/20 00:00 06/27/20 00:37 06/27/20 04:00 Temperature 36.4 C Pulse Rate 51 L 65 61 Respiratory Rate 18 Blood Pressure 180/65 H Pulse Oximetry 100 06/27/20 05:39 06/27/20 06:00 06/27/20 07:19 Temperature 36.5 C 36.9 C Pulse Rate 62 69 65 Respiratory Rate 20 30 H Blood Pressure 170/60 H 172/55 H Pulse Oximetry 98 91 06/27/20 08:12 06/27/20 08:30 06/27/20 08:45 Temperature 36.6 C Pulse Rate 83 73 83 Respiratory Rate 22 H 18 20 Blood Pressure 183/69 H 197/82 H 189/72 H Pulse Oximetry 93 93 91 06/27/20 09:11 06/27/20 09:26 06/27/20 09:55 Temperature 36.9 C Pulse Rate 65 65 65 Respiratory Rate 16 18 30 H Blood Pressure 168/60 H 158/62 H 172/55 H Pulse Oximetry 91 92 91 06/27/20 10:10 06/27/20 10:40 06/27/20 11:40 Temperature 37.2 C 32.2 C L 37.2 C Pulse Rate 64 66 70 Respiratory Rate 24 H 22 H 20 Blood Pressure 154/50 H 160/50 H 169/58 H Pulse Oximetry 93 95 95 06/27/20 11:55 06/27/20 12:00 Temperature Pulse Rate 76 63 Respiratory Rate Blood Pressure Pulse Oximetry Intake/Output Intake/Output: Intake & Output 06/24/20 06/25/20 06/26/20 06/27/20 23:59 23:59 23:59 23:59 Intake Total 1999 1524 1810 1804 Output Total 2049 1950 1525 160 [facility] -50 516 158 4864 Meds/Results Medications: Active Medications Generic Name Dose Route Start Last Admin Trade Name Freq PRN Reason Stop Dose Admin Enoxaparin Sodium 40 mg 06/23/20 09:00 06/27/20 10:30 Lovenox SUB-Q Not Given DAILY [facility] Famotidine 20 mg 06/22/20 21:00 06/27/20 09:50 Pepcid Iv IV PUSH 20 mg Q12HR JOZEF
[2020-06-28] VITALS (14 sets, daily range): BP systolic 157–195; BP diastolic 59–82; PULSE 55–87; RESP 20–24; TEMP 36.6–37.1; O2SAT 93–98
[2020-06-28] MEDS: METOPROLOL TARTRATE INJ 5 MG/5 ML VIAL IV PUSH ×4 (00:41→17:52)
[2020-06-28] MEDS: AMPICILLIN SULB 3 GM/NS 100 ML 3 GM/100 ML VIAL IVPB ×4 (00:41→17:52)
[2020-06-28] MEDS: SODIUM CHLORIDE 0.9% IV 1,000 ML 80 ML IV CONT ×2 (03:44→21:05)
[2020-06-28] MEDS: hydrALAZINE HCL 20 MG/ML VIAL 10 MG IV PUSH ×2 (04:57→21:33)
[2020-06-28 06:50] LABS: Hematocrit 34.8 % (37.0-47.0); Hemoglobin 11.2 g/dL (12.0-15.0); Mean Corpuscular HGB Conc 32.2 g/dl (32-36); Mean Corpuscular Hemoglobin 33.1 pg (26-34); Mean Platelet Volume 10.7 fl (7.4-10.4); Platelet Count Result 254 k/mm3 (150-375); Red Blood Count 3.38 M/mm3 (4.2-5.4); Red Cell Distribution Width 16.1 % (11.5-14.5); White Blood Count 10.1 K/mm3 (4.5-10.0)
[2020-06-28 07:04] LABS: Anion Gap 3 mmol/L (8-16); Blood Urea Nitrogen 19 mg/dL (7-17); Calcium 8.3 mg/dL (8.4-10.2); Carbon Dioxide 27 mmol/L (22-30); Chloride 116 mmol/L (98-107); Estimated CRCL calculation 65 ml/min; Estimated Glomerular Filt Rate > 60; Glucose 118 mg/dL (65-105); Potassium 3.4 mmol/L (3.4-5.0); Sodium 146 mmol/L (137-145)
[2020-06-28] MEDS: ENOXAPARIN 40 MG/0.4 ML SYRINGE SUB-Q (08:03)
[2020-06-28] MEDS: FAMOTIDINE 20 MG/2 ML VIAL IV PUSH ×2 (08:04→21:04)
[2020-06-28] MEDS: IBUPROFEN IV 400 MG in SODIUM CHLORIDE 0.9% IV 100 ML 200 MG IVPB ×2 (08:13→18:44)
--- NOTE | 2020-06-28 10:22 | WPDANESPN ---
Anes - Prog Note Post-Op Date/Time: 06/28/20 10:22 Cardiovascular status: normal Respiratory status: normal Airway patency: baseline Mental status: baseline Post-Op hydration status: normal Vital Signs: Last Vital Signs Temp 37.0 C 06/28/20 09:20 Pulse 62 06/28/20 09:20 Resp 22 H 06/28/20 09:20 BP 164/59 H 06/28/20 09:20 Pulse Ox 98 06/28/20 09:20 Pain Score (VAS): 4 I/O: Intake & Output 06/27/20 06/28/20 06/28/20 23:59 07:59 15:59 Intake Total 100 200 104 Output Total 250 Balance -150 200 104 Laboratory Tests 06/28/20 06:43 06/28/20 06:43 06/28/20 06/28/20 06:43 06:43 WBC 10.1 H RBC 3.38 L Hgb 11.2 L Hct 34.8 L MCV 103.0 H MCH 33.1 MCHC 32.2 RDW 16.1 H Plt Count 254 MPV 10.7 H Sodium 146 H Potassium 3.4 Chloride 116 H Carbon Dioxide 27 Anion Gap 3 L BUN 19 H Creatinine 0.50 L Estim Creat Clear Calc 65 Estimated GFR > 60 Glucose 118 H Calcium 8.3 L Microbiology 06/24/20 13:31 Pleural Fluid Anaerobic Culture - Preliminary 06/24/20 13:31 Pleural Fluid Aerobic Culture - Preliminary 06/24/20 13:31 Pleural Fluid Fungal Culture - Preliminary Post-procedural complaints: none Patient Feedback: Patient satisfied with anesthetic care.
--- NOTE | 2020-06-28 10:45 | PM.PNGS ---
Progress Note: A&P Assessment and Plan (1) Small bowel obstruction: Code(s): K56.609 - Unspecified intestinal obstruction, unspecified as to partial versus complete obstruction Status: Acute Assessment and Plan: s/p ex lap, SAMMY, doing well, await bowel fxn, cont bowel rest and NG decompression for now, encourage OOB/IS (2) Pleural effusion: Code(s): J90 - Pleural effusion, not elsewhere classified Status: Acute Assessment and Plan: lungs are clear, good sats on RA (3) Pneumothorax: Code(s): J93.9 - Pneumothorax, unspecified Status: Acute Assessment and Plan: chronic and stable Subjective Subjective Date/Time Seen: 06/28/20 10:45 feels better, pain controlled, no bowel fxn Review of Systems Constitutional: Constitutional: Denies body ache(s), Denies chills, Reports fatigue, Reports lethargy and Reports weakness Cardiovascular: Cardiovascular: Denies chest pain Respiratory: Respiratory: Denies dyspnea Gastrointestinal: Gastrointestinal: Reports abdominal pain, Reports bloating, Reports constipation, Denies diarrhea, Reports nausea and Denies vomiting Exam Const: General: no acute distress Resp: Auscultation: clear to auscultation bilaterally Cardio: Rate: regular rate Rhythm: regular rhythm GI: Other: soft, mod dist, virgilio TTP, incision C/D/I Objective Data Vital Signs Vital Signs: Vital Signs - 24 hr 06/27/20 11:40 06/27/20 11:55 06/27/20 12:00 Temperature 37.2 C Pulse Rate 70 76 63 Respiratory Rate 20 Blood Pressure 169/58 H Pulse Oximetry 95 06/27/20 16:00 06/27/20 18:17 06/27/20 20:00 Temperature 36.9 C 36.7 C Pulse Rate 66 66 50 L Respiratory Rate 28 H 20 Blood Pressure 172/58 H 174/78 H Pulse Oximetry 97 96 06/28/20 00:00 06/28/20 00:41 06/28/20 04:00 Temperature 36.9 C 36.9 C Pulse Rate 59 L 70 63 Respiratory Rate 24 H 22 H Blood Pressure 190/73 H 178/82 H Pulse Oximetry 97 93 06/28/20 06:07 06/28/20 08:00 06/28/20 09:06 Temperature Pulse Rate 67 64 58 L Respiratory Rate 20 Blood Pressure Pulse Oximetry 93 06/28/20 09:20 Temperature 37.0 C Pulse Rate 62 Respiratory Rate 22 H Blood Pressure 164/59 H Pulse Oximetry 98 Intake/Output Intake/Output: Intake & Output 06/25/20 06/26/20 06/27/20 06/28/20 23:59 23:59 23:59 23:59 Intake Total 1524 1810 2404 304 Output Total 1950 1525 410 Balance -881 356 8399 304 Meds/Results Medications: Active Medications Generic Name Dose Route Start Last Admin Trade Name Freq PRN Reason Stop Dose Admin Enoxaparin Sodium 40 mg 06/23/20 09:00 06/28/20 08:03 Lovenox SUB-Q 40 mg DAILY JOZEF Administration Famotidine 20 mg 06/22/20 21:00 06/28/20 08:04 Pepcid Iv IV PUSH 20 mg Q12HR JOZEF Administration Hydralazine HCl 10 mg 06/23/20 10:08 06/28/20 04:57 Apresoline Hcl Inj IV PUSH 10 mg Q4HR PRN Administration Blood Pressure - High Hydromorphone HCl 1 mg 06/27/20 13:18 06/28/20 07:51 Dilaudid Inj IV PUSH 1 mg Q1H PRN Administration Pain Rated 7-10 Sodium Chloride 1,000 mls @ 80 mls/hr 06/22/20 04:50 06/28/20 03:44 Normal Saline Iv IV CONT 80 mls/hr .[id number] JOZEF Administration Ibuprofen 400 mg/ Sodium 104 mls @ 200 mls/hr 06/22/20 11:12 06/28/20 08:45 Chloride IVPB Infused Q6H PRN Infusion Pain Rated 1-3 Ampicillin Sodium/Sulbactam Sodium 3 gm in 100 mls @ 200 mls/hr 06/26/20 12:00 06/28/20 06:37 Unasyn 3 Gm/Ns 100 Ml IVPB Infused Q6HR JOZEF Infusion Potassium Chloride 500 mls @ 125 mls/hr 06/28/20 09:00 06/28/20 09:18 Kcl 40 Meq/D5w 500 Ml Peripheral IVPB 06/28/20 12:59 125 mls/hr ONCE ONE Administration Metoprolol Tartrate 5 mg 06/22/20 06:35 06/28/20 06:07 Lopressor Inj IV PUSH 5 mg Q6HR JOZEF Administration Morphine Sulfate 1 mg 06/22/20 11:12 06/25/20 08:30 Morphine Sulfate Inj IV PUSH 1 mg Q2H PRN Administ
[2020-06-28] MEDS: MORPHINE SULFATE 2 MG/ML INJ 1 MG IV PUSH ×2 (12:39→17:52)
--- NOTE | 2020-06-28 14:03 | PM.IMPN ---
Progress Note: A&P Assessment and Plan (1) Small bowel obstruction: Code(s): K56.609 - Unspecified intestinal obstruction, unspecified as to partial versus complete obstruction Status: Acute Assessment and Plan: patient had upper GI series and shows obstruction, surgery service is following (2) Shortness of breath at rest: Code(s): R06.02 - Shortness of breath Status: Acute Assessment and Plan: 06/28/20 14:03 Balbina Lopez is a 80 year old female admitted for a small-bowel obstruction and seen by surgery service this morning patient had complaint of shortness of breath and chest pain with coughing, consultation for medical management was requested, EKG was nondiagnostic, 1st tropes negative, ABG showed hypoxia on 4 L, and her oxygen was increased to 5 L, to further evaluate patient had a CTA of the chest there was pulmonary emboli however scan showed large pleural effusion on right side, patient had a thoracentesis and 1000 cc was removed, labs are ordered and pending, now that 1000 cc of fluid is removed repeat CT scan to further evaluate if patient has a pneumonia or malignancy and further recommendation to follow, we will do cardiac echo to further evaluate, on 06/26 patient was feeling better did have a a small liquidy BM, was sitting in the chair not as short of breath and on 06/26 patient had a small-bowel follow-through is still shows persistent obstruction, on 06/27 patient was taken to OR POD 1 and had exploratory laparotomy and release of obstruction, patient states the pain is still persist denies any nausea or vomiting, not passing any gas seen by surgery recommended to continue NG decompression patient was seen by pulmonary service suspect patient has a aspiration pneumonia and started the patient on ampicillin, patient is clinically stable will continue present management ,will continue to monitor will follow-up with surgery recommendations. encourage patient to participate in physical therapy (3) Pleural effusion: Code(s): J90 - Pleural effusion, not elsewhere classified Status: Acute Assessment and Plan: plan is above Subjective Date/time seen: 06/28/20 14:03 Balbina Lopez is a 80 year old female admitted for a small-bowel obstruction and seen by surgery service this morning patient had complaint of shortness of breath and chest pain with coughing, consultation for medical management was requested, EKG was nondiagnostic, 1st tropes negative, ABG showed hypoxia on 4 L, and her oxygen was increased to 5 L, to further evaluate patient had a CTA of the chest there was pulmonary emboli however scan showed large pleural effusion on right side, patient had a thoracentesis and 1000 cc was removed, labs are ordered and pending, now that 1000 cc of fluid is removed repeat CT scan to further evaluate if patient has a pneumonia or malignancy and further recommendation to follow, we will do cardiac echo to further evaluate, on 06/26 patient was feeling better did have a a small liquidy BM, was sitting in the chair not as short of breath and on 06/26 patient had a small-bowel follow-through is still shows persistent obstruction, on 06/27 patient was taken to OR POD 1 and had exploratory laparotomy and release of obstruction, patient states the pain is still persist denies any nausea or vomiting, not passing any gas seen by surgery recommended to continue NG decompression patient was seen by pulmonary service suspect patient has a aspiration pneumonia and started the patient on ampicillin, patient is clinically stable will continue present management ,will continue to monitor will follow-up with surgery recommendations. encourage patient to participate in physical therapy Review of Systems Review of Systems: All systems reviewed & are unremarkable except as noted in HPI and below Exam Const: General: no acute distress and uncomfortable HENMT: General nose exam: Normal nares pre
--- NOTE | 2020-06-28 15:39 | PM.PNPUL ---
Progress Note: A&P Assessment and Plan (1) Aspiration pneumonia: Qualifiers: Aspiration pneumonia type: unspecified Laterality: bilateral Lung location: lower lobe of lung Qualified Code(s): J69.0 - Pneumonitis due to inhalation of food and vomit Code(s): J69.0 - Pneumonitis due to inhalation of food and vomit Status: Acute Assessment and Plan: - suspected aspiration pneumonia given her history and radiographic finds as well as exam. - continue antibiotics with Unasyn 3 gm IV Q6h for 5 days - incentive spirometer Q2h while awake - up into chair bid and encourage mobilization with PT/OT - flutter valve may also be helpful - check CXR periodically (2) Bilateral atelectasis: Code(s): J98.11 - Atelectasis Status: Acute (3) Small bowel obstruction: Code(s): K56.609 - Unspecified intestinal obstruction, unspecified as to partial versus complete obstruction Status: Acute Assessment and Plan: POD #1 exp lap with SAMMY, NG, bowel rest, feels better (4) Pneumothorax: Code(s): J93.9 - Pneumothorax, unspecified Status: Acute Assessment and Plan: chronic, present for a couple of years Subjective Date/time seen: 06/28/20 15:39 POD #1 exploratory lap for SAMMY after conservative measures failed. Alert, feels better, no complaints. Review of Systems Review of Systems: All systems reviewed & are unremarkable except as noted in HPI and below Exam Const: General: comfortable and no acute distress Eyes: General: appearance normal, both eyes and all related structures Neck: Neck: supple and no JVD Lymphatic: lymphadenopathy not noted Resp: Auscultation: diminished lung sounds (right base) Cardio: Rate: regular rate Rhythm: regular rhythm Heart sounds: no murmurs GI: Inspection: non-distended Auscultation: abnormal bowel sounds (no bowel sounds ) Skin: General skin exam: normal color and no rashes or lesions noted Neuro: Cognition (Neuro): normal cognition Speech: normal speech Extrem: General: normal to inspection Psych: Mental Status: mental status grossly normal Affect: normal affect Objective Data Vital Signs Vital Signs: Vital Signs - 24 hr 06/27/20 16:00 06/27/20 18:17 06/27/20 20:00 Temperature 36.9 C 36.7 C Pulse Rate 66 66 50 L Respiratory Rate 28 H 20 Blood Pressure 172/58 H 174/78 H Pulse Oximetry 97 96 06/28/20 00:00 06/28/20 00:41 06/28/20 04:00 Temperature 36.9 C 36.9 C Pulse Rate 59 L 70 63 Respiratory Rate 24 H 22 H Blood Pressure 190/73 H 178/82 H Pulse Oximetry 97 93 06/28/20 06:07 06/28/20 08:00 06/28/20 09:06 Temperature Pulse Rate 67 64 58 L Respiratory Rate 20 Blood Pressure Pulse Oximetry 93 06/28/20 09:20 06/28/20 12:00 06/28/20 12:42 Temperature 37.0 C 36.8 C Pulse Rate 62 55 L 68 Respiratory Rate 22 H 20 Blood Pressure 164/59 H 157/60 H Pulse Oximetry 98 98 Intake/Output Intake/Output: Intake & Output 06/25/20 06/26/20 06/27/20 06/28/20 23:59 23:59 23:59 23:59 Intake Total 1524 1810 2404 904 Output Total 1950 1525 410 100 Balance -128 331 5473 804 Meds/Results Medications: Active Medications Generic Name Dose Route Start Last Admin Trade Name Freq PRN Reason Stop Dose Admin Enoxaparin Sodium 40 mg 06/23/20 09:00 06/28/20 08:03 Lovenox SUB-Q 40 mg DAILY JOZEF Administration Famotidine 20 mg 06/22/20 21:00 06/28/20 08:04 Pepcid Iv IV PUSH 20 mg Q12HR JOZEF Administration Hydralazine HCl 10 mg 06/23/20 10:08 06/28/20 04:57 Apresoline Hcl Inj IV PUSH 10 mg Q4HR PRN Administration Blood Pressure - High Hydromorphone HCl 1 mg 06/27/20 13:18 06/28/20 07:51 Dilaudid Inj IV PUSH 1 mg Q1H PRN Administr
[2020-06-29] VITALS (15 sets, daily range): BP systolic 156–193; BP diastolic 54–81; PULSE 53–87; RESP 18–22; TEMP 36.3–37.3; O2SAT 95–97
[2020-06-29] MEDS: AMPICILLIN SULB 3 GM/NS 100 ML 3 GM/100 ML VIAL IVPB ×4 (00:30→17:41)
[2020-06-29] MEDS: METOPROLOL TARTRATE INJ 5 MG/5 ML VIAL IV PUSH ×4 (00:34→17:41)
[2020-06-29] MEDS: MORPHINE SULFATE 2 MG/ML INJ 1 MG IV PUSH (02:47)
[2020-06-29] MEDS: hydrALAZINE HCL 20 MG/ML VIAL 10 MG IV PUSH ×3 (04:25→13:38)
[2020-06-29 05:34] LABS: Hematocrit 32.7 % (37.0-47.0); Hemoglobin 10.6 g/dL (12.0-15.0); Mean Corpuscular HGB Conc 32.4 g/dl (32-36); Mean Corpuscular Hemoglobin 33.2 pg (26-34); Mean Corpuscular Volume 102.5 fl (80-100); Platelet Count Result 242 k/mm3 (150-375); Red Blood Count 3.19 M/mm3 (4.2-5.4); Red Cell Distribution Width 15.9 % (11.5-14.5); White Blood Count 7.7 K/mm3 (4.5-10.0)
[2020-06-29 05:43] LABS: Anion Gap 4 mmol/L (8-16); Blood Urea Nitrogen 15 mg/dL (7-17); Calcium 8.2 mg/dL (8.4-10.2); Carbon Dioxide 25 mmol/L (22-30); Chloride 116 mmol/L (98-107); Estimated CRCL calculation 79 ml/min; Estimated Glomerular Filt Rate > 60; Glucose 102 mg/dL (65-105); Potassium 3.2 mmol/L (3.4-5.0); Sodium 145 mmol/L (137-145)
[2020-06-29] MEDS: ENOXAPARIN 40 MG/0.4 ML SYRINGE SUB-Q (08:28)
[2020-06-29] MEDS: FAMOTIDINE 20 MG/2 ML VIAL IV PUSH ×2 (08:29→21:33)
[2020-06-29] MEDS: SODIUM CHLORIDE 0.9% IV 1,000 ML 80 ML IV CONT (10:50)
--- NOTE | 2020-06-29 11:35 | PM.PNGS ---
Progress Note: A&P Assessment and Plan (1) Small bowel obstruction: Code(s): K56.609 - Unspecified intestinal obstruction, unspecified as to partial versus complete obstruction Status: Acute Assessment and Plan: exam benign, will clamp NG, start clears if NG out later, encourage OOB/IS Subjective Subjective Date/Time Seen: 06/29/20 11:35 feels better today, lg BM, chung sips Review of Systems Constitutional: Constitutional: Reports fatigue, Reports lethargy and Reports weakness Cardiovascular: Cardiovascular: Denies chest pain Respiratory: Respiratory: Denies dyspnea Gastrointestinal: Gastrointestinal: Denies abdominal pain, Denies bloating, Denies constipation, Denies diarrhea, Denies nausea and Denies vomiting Exam Const: General: no acute distress Resp: Auscultation: clear to auscultation bilaterally Cardio: Rate: regular rate Rhythm: regular rhythm GI: Other: soft, sl dist, virgilio TTP, incision C/D/I Objective Data Vital Signs Vital Signs: Vital Signs - 24 hr 06/28/20 12:00 06/28/20 12:42 06/28/20 16:00 Temperature 36.8 C Pulse Rate 55 L 68 63 Respiratory Rate 20 Blood Pressure 157/60 H Pulse Oximetry 98 06/28/20 16:56 06/28/20 17:52 06/28/20 20:00 Temperature 37.1 C Pulse Rate 60 56 L 64 Respiratory Rate 20 Blood Pressure 165/76 H Pulse Oximetry 95 06/28/20 22:00 06/29/20 00:00 06/29/20 00:30 Temperature 36.6 C Pulse Rate 65 55 L 64 Respiratory Rate 24 H Blood Pressure 195/63 H 164/56 H Pulse Oximetry 93 06/29/20 00:34 06/29/20 04:00 06/29/20 05:56 Temperature 36.4 C Pulse Rate 66 53 L Respiratory Rate 22 H Blood Pressure 193/60 H 169/54 H Pulse Oximetry 96 06/29/20 06:02 06/29/20 08:00 06/29/20 09:10 Temperature 36.8 C Pulse Rate 64 58 L 64 Respiratory Rate 18 Blood Pressure 188/66 H Pulse Oximetry 96 06/29/20 10:55 06/29/20 11:17 Temperature Pulse Rate 75 Respiratory Rate Blood Pressure 165/55 H Pulse Oximetry Intake/Output Intake/Output: Intake & Output 06/26/20 06/27/20 06/28/20 06/29/20 23:59 23:59 23:59 23:59 Intake Total 1810 2404 2278 1200 Output Total 1529 410 250 121 Balance 285 1993 2027 1078 Meds/Results Medications: Active Medications Generic Name Dose Route Start Last Admin Trade Name Freq PRN Reason Stop Dose Admin Enoxaparin Sodium 40 mg 06/23/20 09:00 06/29/20 08:28 Lovenox SUB-Q 40 mg DAILY JOZEF Administration Famotidine 20 mg 06/22/20 21:00 06/29/20 08:29 Pepcid Iv IV PUSH 20 mg Q12HR JOZEF Administration Hydralazine HCl 10 mg 06/23/20 10:08 06/29/20 09:43 Apresoline Hcl Inj IV PUSH 10 mg Q4HR PRN Administration Blood Pressure - High Hydromorphone HCl 1 mg 06/27/20 13:18 06/28/20 07:51 Dilaudid Inj IV PUSH 1 mg Q1H PRN Administration Pain Rated 7-10 Sodium Chloride 1,000 mls @ 80 mls/hr 06/22/20 04:50 06/29/20 10:50 Normal Saline Iv IV CONT 80 mls/hr .[id number] JOZEF Administration Ibuprofen 400 mg/ Sodium 104 mls @ 200 mls/hr 06/22/20 11:12 06/28/20 19:20 Chloride IVPB Infused Q6H PRN Infusion Pain Rated 1-3 Ampicillin Sodium/Sulbactam Sodium 3 gm in 100 mls @ 200 mls/hr 06/26/20 12:00 06/29/20 11:16 Unasyn 3 Gm/Ns 100 Ml IVPB 200 mls/hr Q6HR JOZEF Administration Metoprolol Tartrate 5 mg 06/22/20 06:35 06/29/20 11:17 Lopressor Inj IV PUSH 5 mg Q6HR JOZEF Administration Morphine Sulfate 1 mg 06/22/20 11:12 06/29/20 02:47 Morphine Sulfate Inj IV PUSH 1 mg Q2H PRN Administration Pain Rated 4-6 Ondansetron HCl 4 mg 06/22/20 04:49 06/27/20 09:58 Zofran Inj IV PUSH 4 mg Q4H PRN Administration Nausea Phenol 1 spray 06/25/20 17:51 06/25/20 18:31 Chloraseptic [place] MUCOUS MEM 1 spray PRN PRN Administration Sore Throat Radiology Results: ITS Impressions Abdomen/Pelvis CT 06/22/20 07:47 IMPRESSION: 1. Small b
--- NOTE | 2020-06-29 13:30 | PM.IMPN ---
Progress Note: A&P Assessment and Plan (1) Small bowel obstruction: Code(s): K56.609 - Unspecified intestinal obstruction, unspecified as to partial versus complete obstruction Status: Acute Assessment and Plan: SP exp laporatomy with lysis of adhesions on 06/29/2020 (2) Shortness of breath at rest: Code(s): R06.02 - Shortness of breath Status: Acute Assessment and Plan: patient was seen by pulmonary service suspect patient has a aspiration pneumonia and started the patient on ampicillin, patient is clinically stable presently, will order CXR and AXR for tomorrow. (3) Pleural effusion: Code(s): J90 - Pleural effusion, not elsewhere classified Status: Acute Assessment and Plan: plan is above Subjective Date/time seen: 06/29/20 13:30 Interval history: John is a 80 year old female admitted for a small-bowel obstruction and seen by surgery service this morning patient had complaint of shortness of breath and chest pain with coughing, consultation for medical management was requested, EKG was nondiagnostic, 1st tropes negative, ABG showed hypoxia on 4 L, and her oxygen was increased to 5 L, to further evaluate patient had a CTA of the chest there was pulmonary emboli however scan showed large pleural effusion on right side, patient had a thoracentesis and 1000 cc was removed, labs are ordered and pending, now that 1000 cc of fluid is removed repeat CT scan to further evaluate if patient has a pneumonia or malignancy and further recommendation to follow, we will do cardiac echo to further evaluate, on 06/26 patient was feeling better did have a a small liquidy BM, was sitting in the chair not as short of breath and on 06/26 patient had a small-bowel follow-through is still shows persistent obstruction, on 06/27 patient was taken to OR POD 1 and had exploratory laparotomy and release of obstruction, patient states the pain is still persist denies any nausea or vomiting, not passing any gas seen by surgery recommended to continue NG decompression patient was seen by pulmonary service suspect patient has a aspiration pneumonia and started the patient on ampicillin. History as per previous notes. Currently 06/29 pt had a bowel movement, hopefully will have NG tube removed today. Pt Bp is slightly high, pt does not complain of cough or wheezes today. Review of Systems Review of Systems: ROS unobtainable: Yes other (Anxious ) Exam Const: General: uncomfortable HENMT: Other: NG tube in place Resp: Other: bilateral poor air entry, no added sounds Cardio: Rate: regular rate Rhythm: regular rhythm GI: Other: midline incision bowel sounds are audible Skin: General skin exam: normal color Neuro: Speech: normal speech Sensory Exam: normal sensation Extrem: General: normal to inspection Psych: Affect: Anxious affect present Objective Data Vital Signs Vital Signs: Vital Signs - 24 hr 06/28/20 16:00 06/28/20 16:56 06/28/20 17:52 Temperature 37.1 C Pulse Rate 63 60 56 L Respiratory Rate 20 Blood Pressure 165/76 H Pulse Oximetry 95 06/28/20 20:00 06/28/20 22:00 06/29/20 00:00 Temperature 36.6 C Pulse Rate 64 65 55 L Respiratory Rate 24 H Blood Pressure 195/63 H Pulse Oximetry 93 06/29/20 00:30 06/29/20 00:34 06/29/20 04:00 Temperature 36.4 C Pulse Rate 64 66 53 L Respiratory Rate 22 H Blood Pressure 164/56 H 193/60 H Pulse Oximetry 96 06/29/20 05:56 06/29/20 06:02 06/29/20 08:00 Temperature Pulse Rate 64 58 L Respiratory Rate Blood Pressure 169/54 H Pulse Oximetry 06/29/20 09:10 06/29/20 10:55 06/29/20 11:17 Temperature 36.8 C Pulse Rate 64 75 Respiratory Rate 18 Blood Pressure 188/66 H 165/55 H Pulse Oximetry 96 06/29/20 13:15 Temperature 37.3 C Pulse Rate 70 Respiratory Rate 20 Blood Pressure 188/66 H Pulse Oximetry 96 Intake/Output Intake/Output: Intake & Output 06/26/20
--- NOTE | 2020-06-29 14:28 | PCDIET ---
Nutrition Follow-Up Complete: Altered GI fxn as related to SBO as evidenced by NPO x 4 days. Meet estimated nutrition needs Goal: Goal not met. Continue goal. Pt current nutrition is npo. Nutrition recommendation: Recommend diet advancement today or PPN, 4.25/5 with fat at 80ml/hr Last recorded weight is 62.1 kg (recommend new wt, no new wt since admit) Bowel Motility: Bowels now moving Labs Reviewed:K 3.2 Meds Noted:KATHRYN Kowalski, Lohollie Additional Notes: Pt on day seven NPO. NG clamping trial followed by dilip is the plan for today. If diet cannot advance successfully today, PPN should be started with lipids to prevent fatty acid deficiency. PPN should start at 40ml/hr day one and increase to 80ml/hr day two if electrolytes are stable. Due to prolonged NPO period, pt at risk for refeeding syndrome. Will will continue to follow for adequate intake daily.
[2020-06-30] VITALS (17 sets, daily range): BP systolic 140–210; BP diastolic 54–77; PULSE 59–96; RESP 20–24; TEMP 36.1–36.6; O2SAT 91–96
[2020-06-30] MEDS: METOPROLOL TARTRATE INJ 5 MG/5 ML VIAL IV PUSH ×2 (00:37→06:46)
[2020-06-30] MEDS: AMPICILLIN SULB 3 GM/NS 100 ML 3 GM/100 ML VIAL IVPB ×5 (00:37→23:43)
[2020-06-30] MEDS: SODIUM CHLORIDE 0.9% IV 1,000 ML 80 ML IV CONT ×2 (00:38→17:11)
[2020-06-30] MEDS: hydrALAZINE HCL 20 MG/ML VIAL 10 MG IV PUSH ×4 (04:13→19:23)
[2020-06-30 04:57] LABS: Hematocrit 33.9 % (37.0-47.0); Hemoglobin 11.4 g/dL (12.0-15.0); Mean Corpuscular HGB Conc 33.6 g/dl (32-36); Mean Corpuscular Hemoglobin 33.8 pg (26-34); Mean Corpuscular Volume 100.6 fl (80-100); Mean Platelet Volume 12.1 fl (7.4-10.4); Platelet Count Result 229 k/mm3 (150-375); Red Blood Count 3.37 M/mm3 (4.2-5.4); Red Cell Distribution Width 15.8 % (11.5-14.5); White Blood Count 9.8 K/mm3 (4.5-10.0)
[2020-06-30] MEDS: POTASSIUM CHLORIDE 20 MEQ PACKET (FOR LIQUID) 40 MEQ PO (09:34)
[2020-06-30] MEDS: ENOXAPARIN 40 MG/0.4 ML SYRINGE SUB-Q (09:34)
[2020-06-30] MEDS: FAMOTIDINE 20 MG/2 ML VIAL IV PUSH ×2 (09:34→20:13)
[2020-06-30 09:37] LABS: Anion Gap 3 mmol/L (8-16); Blood Urea Nitrogen 12 mg/dL (7-17); Calcium 7.6 mg/dL (8.4-10.2); Carbon Dioxide 25 mmol/L (22-30); Chloride 111 mmol/L (98-107); Estimated CRCL calculation 79 ml/min; Estimated Glomerular Filt Rate > 60; Glucose 96 mg/dL (65-105); Potassium 3.3 mmol/L (3.4-5.0); Sodium 139 mmol/L (137-145)
--- NOTE | 2020-06-30 10:29 | PM.PNGS ---
Progress Note: A&P Assessment and Plan (1) Small bowel obstruction: Code(s): K56.609 - Unspecified intestinal obstruction, unspecified as to partial versus complete obstruction Status: Acute Assessment and Plan: improved, NG out, chung clears, +bowel fxn, soft diet (2) Hypertension: Code(s): I10 - Essential (primary) hypertension Status: Acute Assessment and Plan: restart home meds (3) Pleural effusion: Code(s): J90 - Pleural effusion, not elsewhere classified Status: Acute Assessment and Plan: stable, no SOA Subjective Subjective Date/Time Seen: 06/30/20 10:29 feels ok, chung clears, +bowel fxn Review of Systems Constitutional: Constitutional: Denies body ache(s), Denies chills, Reports fatigue, Reports lethargy and Reports weakness Cardiovascular: Cardiovascular: Reports no additional cardiovascular complaints Respiratory: Respiratory: Reports no additional respiratory complaints Gastrointestinal: Gastrointestinal: Reports abdominal pain, Denies bloating, Denies constipation, Reports diarrhea, Denies nausea and Denies vomiting Exam Const: General: no acute distress Resp: Auscultation: clear to auscultation bilaterally Cardio: Rate: regular rate Rhythm: regular rhythm GI: Other: soft, sl dist, virgilio TTP, incision C/D/I Objective Data Vital Signs Vital Signs: Vital Signs - 24 hr 06/29/20 10:55 06/29/20 11:17 06/29/20 12:00 Temperature Pulse Rate 75 61 Respiratory Rate Blood Pressure 165/55 H Pulse Oximetry 06/29/20 13:15 06/29/20 16:00 06/29/20 17:41 Temperature 37.3 C 36.4 C L Pulse Rate 70 56 L 87 Respiratory Rate 20 20 Blood Pressure 188/66 H 164/81 H Pulse Oximetry 96 97 06/29/20 20:00 06/30/20 00:00 06/30/20 00:37 Temperature 36.3 C L 36.3 C L Pulse Rate 60 72 67 Respiratory Rate 22 H 22 H Blood Pressure 156/55 H 166/75 H Pulse Oximetry 95 95 06/30/20 04:00 06/30/20 06:29 06/30/20 06:46 Temperature 36.1 C L Pulse Rate 60 67 Respiratory Rate 22 H Blood Pressure 196/68 H 210/55 H Pulse Oximetry 95 06/30/20 08:00 06/30/20 08:11 06/30/20 09:59 Temperature 36.2 C L Pulse Rate 76 67 Respiratory Rate 24 H Blood Pressure 166/77 H 180/55 H Pulse Oximetry 96 91 Intake/Output Intake/Output: Intake & Output 06/27/20 06/28/20 06/29/20 06/30/20 23:59 23:59 23:59 23:59 Intake Total 2407 2278 2820 920 Output Total 410 250 121 Balance 1993 2027 7073 920 Meds/Results Medications: Active Medications Generic Name Dose Route Start Last Admin Trade Name Freq PRN Reason Stop Dose Admin Enoxaparin Sodium 40 mg 06/23/20 09:00 06/30/20 09:34 Lovenox SUB-Q 40 mg DAILY JOZEF Administration Famotidine 20 mg 06/22/20 21:00 06/30/20 09:34 Pepcid Iv IV PUSH 20 mg Q12HR JOZEF Administration Hydralazine HCl 10 mg 06/23/20 10:08 06/30/20 04:13 Apresoline Hcl Inj IV PUSH 10 mg Q4HR PRN Administration Blood Pressure - High Hydromorphone HCl 1 mg 06/27/20 13:18 06/30/20 09:35 Dilaudid Inj IV PUSH 1 mg Q1H PRN Administration Pain Rated 7-10 Sodium Chloride 1,000 mls @ 80 mls/hr 06/22/20 04:50 06/30/20 00:38 Normal Saline Iv IV CONT 80 mls/hr .[id number] JOZEF Administration Ibuprofen 400 mg/ Sodium 104 mls @ 200 mls/hr 06/22/20 11:12 06/28/20 19:20 Chloride IVPB Infused Q6H PRN Infusion Pain Rated 1-3 Ampicillin Sodium/Sulbactam Sodium 3 gm in 100 mls @ 200 mls/hr 06/26/20 12:00 06/30/20 07:44 Unasyn 3 Gm/Ns 100 Ml IVPB Infused Q6HR JOZEF Infusion Metoprolol Tartrate 5 mg 06/22/20 06:35 06/30/20 06:46 Lopressor Inj IV PUSH 5 mg Q6HR JOZEF Administration Morphine Sulfate 1 mg 06/22/20 11:12 06/29/20 02:47 Morphine Sulfate Inj IV PUSH 1 mg Q2H PRN Administration Pain Rated 4-6 Ondansetron HCl 4 mg 06/22/20 04:49 06/27/20 09:58 Zofran Inj IV PUSH 4 mg Q4H PRN Administra
--- NOTE | 2020-06-30 11:10 | PM.IMPN ---
Progress Note: A&P Assessment and Plan (1) Small bowel obstruction: Code(s): K56.609 - Unspecified intestinal obstruction, unspecified as to partial versus complete obstruction Status: Acute Assessment and Plan: Patient presented with nausea/vomiting/abdominal pain; imaging demonstrated small bowel obstruction. Now POD#3 s/p ex lap with adhesiolysis by Dr Christensen 06/27/20. Management per the primary service. NG out 06/29. (2) Aspiration pneumonia: Qualifiers: Aspiration pneumonia type: unspecified Laterality: bilateral Lung location: lower lobe of lung Qualified Code(s): J69.0 - Pneumonitis due to inhalation of food and vomit Code(s): J69.0 - Pneumonitis due to inhalation of food and vomit Status: Acute Assessment and Plan: Pulmonology following. Continue IV Unasyn through tomorrow to complete 5-day course. Continue supportive care with incentive spirometry, increase activity. Also noted to have ARLENE pleural effusion and a small chronic left apical pneumothorax. (3) Pleural effusion: Code(s): J90 - Pleural effusion, not elsewhere classified Status: Acute Assessment and Plan: s/p US thoracentesis on 06/24/20. Likely contributing to shortness of breath. Pulmonology following. See above. (4) Hypertension: Qualifiers: Hypertension type: essential hypertension Qualified Code(s): I10 - Essential (primary) hypertension Code(s): I10 - Essential (primary) hypertension Status: Chronic Assessment and Plan: Difficulty controlling BP especially since she was NPO. She describes she was recently started on the metoprolol around 1 month ago and has been on 3 or 4 different antihypertensives in the past. She notes her PCP has had difficulty controlling with different medications. The only other medication she can recall in the past was irbesartan. As her diet is advancing, we will try to resume her home oral metoprolol today. Continue IV hydralazine; still having significant HTN despite the hydralazine. Will initiate oral norvasc as well and monitor BP closely. (5) Pneumothorax: Qualifiers: Pneumothorax type: unspecified pneumothorax Qualified Code(s): J93.9 - Pneumothorax, unspecified Code(s): J93.9 - Pneumothorax, unspecified Status: Chronic Assessment and Plan: Chronic; pulm following. Additional Plan Thank you for allowing me to participate in this patient's care. Please do not hesitate to call for any questions or concerns. Will follow with you while she is here. Subjective Date/time seen: 06/30/20 1040 Interval history: Ms. Lopez is an 80yo F admitted for small bowel obstruction and aspiration pneumonia. She is seen in follow up today now POD#3 s/p exploratory laparotomy with adhesiolysis. She reports abdominal pain is minimal today and has tolerated some clear liquids. Mild shortness of breath. She denies chest pain, palpitations, or calf tenderness. Review of Systems Review of Systems: Narrative: Twelve systems were reviewed with pertinent positives and negatives as per HPI. Exam Narrative: Exam Narrative: General: Elderly female resting supine in bed in no acute distress. HEENT: Normocephalic, EOMI, oral mucosa tacky. Cardiovascular: Rate and rhythm are regular. Respiratory: Faint bibasilar rales. Respirations are even and nonlabored; tolerating room air. Abdomen: Soft, non-tender, healing stapled incision to the midline of abdomen with no evidence of acute infection; faint bowel sounds present. Extremities: Peripheral pulses intact. 1+ edema bilateral lower extremities below the knee. Neuro: No focal neurological deficits. Speech is clear. Objective Data Vital Signs Vital Signs: L
[2020-06-30] MEDS: amLODIPine BESYLATE 5 MG TABLET PO (12:01)
[2020-06-30] MEDS: METOPROLOL TARTRATE 25 MG TABLET PO ×2 (12:01→20:13)
--- NOTE | 2020-06-30 14:30 | PCDIET ---
Nutrition Follow-Up Complete: Alterned GI fxn as related to SBO as evidenced by NPO x 4 days. Meet estimated nutrition needs Goal: Progressing towards goal. Continue goal. Pt current nutrition is Soft and Bite Sized . Nutrition recommendation: Agree Last recorded weight is 62.1 kg. (need new wt, no new wt since admit) Bowel Motility: BM+ Labs Reviewed: K 3.3 Additional Notes: Pt diet advanced after seven days NPO. Pt is tolerating well with PO intakes of 40 and 60%. K+ is low but other electrolytes normal today. Pt declines needs for additional nutrition at this time via supplements. We will continue to monitor for adequate intake every seven days.
--- NOTE | 2020-06-30 20:00 | PM.PNPUL ---
Progress Note: A&P Assessment and Plan (1) Aspiration pneumonia: Qualifiers: Aspiration pneumonia type: unspecified Laterality: bilateral Lung location: lower lobe of lung Qualified Code(s): J69.0 - Pneumonitis due to inhalation of food and vomit Code(s): J69.0 - Pneumonitis due to inhalation of food and vomit Status: Acute Assessment and Plan: - finishing Unasyn for aspiration pneumonia, CXR a little worse - incentive spirometer Q2h while awake - up into chair bid and encourage mobilization with PT/OT - flutter valve may also be helpful (2) Bilateral atelectasis: Code(s): J98.11 - Atelectasis Status: Acute Assessment and Plan: (3) Small bowel obstruction: Code(s): K56.609 - Unspecified intestinal obstruction, unspecified as to partial versus complete obstruction Status: Acute Assessment and Plan: POD #1 exp lap with SAMMY, NG, bowel rest, feels better (4) Pneumothorax: Qualifiers: Pneumothorax type: unspecified pneumothorax Qualified Code(s): J93.9 - Pneumothorax, unspecified Code(s): J93.9 - Pneumothorax, unspecified Status: Chronic Assessment and Plan: Left side, chronic, present for a couple of years on prior images Subjective Date/time seen: 06/30/20 20:00 POD #3 exp lap with lysis of adhesion for small-bowel obstruction. She has been feeling better today, She is on treatment for aspiration pneumonia on Unasyn, on nasal cannula. CXR yesterday 06/29 = slight worsening in infiltrates in bases. 06/24 pleural effusion tapped, bloody with increased RBC 14,909. Review of Systems Review of Systems: All systems reviewed & are unremarkable except as noted in HPI and below Exam Const: General: comfortable and no acute distress Eyes: General: appearance normal, both eyes and all related structures Neck: Neck: supple and no JVD Lymphatic: lymphadenopathy not noted Resp: Auscultation: diminished lung sounds (right base) Cardio: Rate: regular rate Rhythm: regular rhythm Heart sounds: no murmurs GI: Inspection: non-distended Auscultation: abnormal bowel sounds (no bowel sounds ) Skin: General skin exam: normal color and no rashes or lesions noted Neuro: Cognition (Neuro): normal cognition Speech: normal speech Extrem: General: normal to inspection Psych: Mental Status: mental status grossly normal Affect: normal affect Objective Data Vital Signs Vital Signs: Vital Signs - 24 hr 06/30/20 00:00 06/30/20 00:37 06/30/20 04:00 Temperature 36.3 C L 36.1 C L Pulse Rate 72 67 60 Respiratory Rate 22 H 22 H Blood Pressure 166/75 H 196/68 H Pulse Oximetry 95 95 06/30/20 06:29 06/30/20 06:46 06/30/20 08:00 Temperature 36.2 C L Pulse Rate 67 82 Respiratory Rate 24 H Blood Pressure 210/55 H 166/77 H Pulse Oximetry 96 06/30/20 08:11 06/30/20 09:59 06/30/20 12:00 Temperature Pulse Rate 67 85 Respiratory Rate Blood Pressure 180/55 H Pulse Oximetry 91 06/30/20 12:01 06/30/20 14:00 06/30/20 16:00 Temperature 36.6 C Pulse Rate 67 65 59 L Respiratory Rate 20 Blood Pressure 140/60 Pulse Oximetry 94 06/30/20 18:00 06/30/20 18:50 Temperature 36.4 C L Pulse Rate 79 Respiratory Rate 22 H Blood Pressure 192/70 H 189/77 H Pulse Oximetry 94 Intake/Output Intake/Output: Intake & Output 06/27/20 06/28/20 06/29/20 06/30/20 23:59 23:59 23:59 23:59 Intake Total 2404 2278 2820 2560 Output Total 410 250 121 300 Balance 1993 2027 269 2260 Meds/Results Medications: Active Medications Generic Name Dose Route Start Last Admin Trade Name Freq PRN Reason Stop Dose Admin Amlodipine [place]
[2020-07-01] VITALS (23 sets, daily range): BP systolic 155–206; BP diastolic 61–99; PULSE 62–105; RESP 16–26; TEMP 36.4–37.3; O2SAT 91–95
[2020-07-01] MEDS: hydrALAZINE HCL 20 MG/ML VIAL 10 MG IV PUSH ×4 (00:31→21:15)
[2020-07-01 05:28] LABS: Hematocrit 35.2 % (37.0-47.0); Mean Corpuscular HGB Conc 34.1 g/dl (32-36); Mean Corpuscular Hemoglobin 33.1 pg (26-34); Mean Corpuscular Volume 97.2 fl (80-100); Mean Platelet Volume 10.8 fl (7.4-10.4); Platelet Count Result 238 k/mm3 (150-375); Red Blood Count 3.62 M/mm3 (4.2-5.4); Red Cell Distribution Width 15.5 % (11.5-14.5); White Blood Count 9.3 K/mm3 (4.5-10.0)
[2020-07-01 05:39] LABS: Anion Gap 4 mmol/L (8-16); Blood Urea Nitrogen 10 mg/dL (7-17); Calcium 8.1 mg/dL (8.4-10.2); Carbon Dioxide 26 mmol/L (22-30); Chloride 108 mmol/L (98-107); Estimated CRCL calculation 79 ml/min; Estimated Glomerular Filt Rate > 60; Glucose 119 mg/dL (65-105); Sodium 138 mmol/L (137-145)
[2020-07-01] MEDS: AMPICILLIN SULB 3 GM/NS 100 ML 3 GM/100 ML VIAL IVPB ×2 (06:13→13:00)
[2020-07-01] MEDS: IBUPROFEN IV 400 MG in SODIUM CHLORIDE 0.9% IV 100 ML 100 MG IVPB (07:30)
[2020-07-01] MEDS: POTASSIUM CHLORIDE 20 MEQ TABLET 60 MEQ PO (08:34)
[2020-07-01] MEDS: METOPROLOL TARTRATE 25 MG TABLET PO ×2 (08:34→20:04)
[2020-07-01] MEDS: ENOXAPARIN 40 MG/0.4 ML SYRINGE SUB-Q (08:35)
[2020-07-01] MEDS: amLODIPine BESYLATE 5 MG TABLET PO (08:35)
--- NOTE | 2020-07-01 15:16 | PM.IMPN ---
Progress Note: A&P Assessment and Plan (1) Small bowel obstruction: Code(s): K56.609 - Unspecified intestinal obstruction, unspecified as to partial versus complete obstruction Status: Acute Assessment and Plan: Patient presented with nausea/vomiting/abdominal pain; imaging demonstrated small bowel obstruction. Now POD#4 s/p ex lap with adhesiolysis by Dr Christensen 06/27/20. Management per the primary service. NG out 06/29. (2) Aspiration pneumonia: Qualifiers: Aspiration pneumonia type: unspecified Laterality: bilateral Lung location: lower lobe of lung Qualified Code(s): J69.0 - Pneumonitis due to inhalation of food and vomit Code(s): J69.0 - Pneumonitis due to inhalation of food and vomit Status: Acute Assessment and Plan: Pulmonology following. Completed a 5-day course of Unasyn. Given her wheezing will add albuterol, pulmozyme and EZ PAP today. Continue supportive care with supplemental O2, incentive spirometry, increase activity. She may need home O2 evaluation prior to discharge. Also noted to have ARLENE pleural effusion and a small chronic left apical pneumothorax. (3) Pleural effusion: Code(s): J90 - Pleural effusion, not elsewhere classified Status: Acute Assessment and Plan: s/p US thoracentesis on 06/24/20. Likely contributing to shortness of breath. Pulmonology following. See above. (4) Hypertension: Qualifiers: Hypertension type: essential hypertension Qualified Code(s): I10 - Essential (primary) hypertension Code(s): I10 - Essential (primary) hypertension Status: Chronic Assessment and Plan: Difficulty controlling BP. She describes she was recently started on the metoprolol around 1 month ago and has been on 3 or 4 different antihypertensives in the past due to difficulty controlling her BP. The only other medication she can recall in the past was irbesartan. Her oral metoprolol has been restarted and amlodipine was added. Continue IV hydralazine; still having significant HTN despite the hydralazine. (5) Pneumothorax: Qualifiers: Pneumothorax type: unspecified pneumothorax Qualified Code(s): J93.9 - Pneumothorax, unspecified Code(s): J93.9 - Pneumothorax, unspecified Status: Chronic Assessment and Plan: Chronic; pulm following. Additional Plan Thank you for allowing me to participate in this patient's care. Please do not hesitate to call for any questions or concerns. Will follow with you while she is here. Subjective Date/time seen: 07/01/20 1300 Interval history: Ms. Lopez is an 80yo F admitted for small bowel obstruction and aspiration pneumonia. She is seen in follow up today now POD#4 s/p exploratory laparotomy with adhesiolysis. She has tolerated some oral intake and reports she has had a BM each day. She denies chest pain but is feeling short of breath today, same as yesterday no better or worse. Review of Systems Review of Systems: Narrative: Twelve systems were reviewed with pertinent positives and negatives as per HPI. Exam Narrative: Exam Narrative: General: Elderly female resting supine in bed in no acute distress. HEENT: Normocephalic, EOMI, oral mucosa tacky. Cardiovascular: Rate and rhythm are regular. Respiratory: Diffuse expiratory wheezes on left cleared a bit after a cough. Respirations are even and nonlabored. Tolerating 0.5 L/min O2. Abdomen: Soft, non-tender, mildly distended, healing stapled incision to the midline of abdomen with no evidence of acute infection; faint bowel sounds present. Extremities: Peripheral pulses intact. Trace to 1+ edema bilateral lower extremities below the knee. Neuro: No focal neurological deficits. Speech is clear.
[2020-07-01] MEDS: ALBUTEROL SULFATE NEB 2.5 MG/0.5 ML INH INHALATION ×2 (15:24→20:17)
[2020-07-01] MEDS: FAMOTIDINE 20 MG/2 ML VIAL IV PUSH (20:03)
[2020-07-01] MEDS: DORNASE ALFA INH SOLN 1 MG/ML 2.5 ML AMP 2.5 MG INHALATION (20:21)
[2020-07-01] MEDS: IBUPROFEN IV 400 MG in SODIUM CHLORIDE 0.9% IV 100 ML 200 MG IVPB (21:11)
[2020-07-02] VITALS (21 sets, daily range): BP systolic 159–175; BP diastolic 60–79; PULSE 54–91; RESP 18–28; TEMP 36.2–37.2; O2SAT 93–98
[2020-07-02] MEDS: ALBUTEROL SULFATE NEB 2.5 MG/0.5 ML INH INHALATION ×4 (01:08→21:07)
[2020-07-02 05:31] LABS: Anion Gap 3 mmol/L (8-16); Blood Urea Nitrogen 9 mg/dL (7-17); Calcium 8.1 mg/dL (8.4-10.2); Carbon Dioxide 25 mmol/L (22-30); Chloride 106 mmol/L (98-107); Estimated CRCL calculation 79 ml/min; Estimated Glomerular Filt Rate > 60; Glucose 98 mg/dL (65-105); Potassium 3.9 mmol/L (3.4-5.0); Sodium 134 mmol/L (137-145)
[2020-07-02] MEDS: IBUPROFEN IV 400 MG in SODIUM CHLORIDE 0.9% IV 100 ML 100 MG IVPB (05:47)
[2020-07-02 06:01] LABS: Hematocrit 33.8 % (37.0-47.0); Hemoglobin 11.3 g/dL (12.0-15.0); Mean Corpuscular HGB Conc 33.4 g/dl (32-36); Mean Corpuscular Hemoglobin 32.8 pg (26-34); Mean Corpuscular Volume 98.3 fl (80-100); Mean Platelet Volume 10.7 fl (7.4-10.4); Platelet Count Result 210 k/mm3 (150-375); Red Blood Count 3.44 M/mm3 (4.2-5.4); Red Cell Distribution Width 15.5 % (11.5-14.5); White Blood Count 8.9 K/mm3 (4.5-10.0)
--- NOTE | 2020-07-02 08:05 | PC.NURSE ---
Patient to radiology.
[2020-07-02] MEDS: ENOXAPARIN 40 MG/0.4 ML SYRINGE SUB-Q (08:28)
[2020-07-02] MEDS: FAMOTIDINE 20 MG/2 ML VIAL IV PUSH ×2 (08:28→20:54)
[2020-07-02] MEDS: METOPROLOL TARTRATE 25 MG TABLET PO (08:28)
[2020-07-02] MEDS: amLODIPine BESYLATE 5 MG TABLET 10 MG PO (08:28)
[2020-07-02] MEDS: DORNASE ALFA INH SOLN 1 MG/ML 2.5 ML AMP 2.5 MG INHALATION ×2 (08:38→21:07)
--- NOTE | 2020-07-02 08:45 | PC.NURSE ---
Patient return from radiology.
--- NOTE | 2020-07-02 13:13 | PM.IMPN ---
Progress Note: A&P Assessment and Plan (1) Small bowel obstruction: Code(s): K56.609 - Unspecified intestinal obstruction, unspecified as to partial versus complete obstruction Status: Acute Assessment and Plan: Patient presented with nausea/vomiting/abdominal pain; imaging demonstrated small bowel obstruction. Now POD#5 s/p ex lap with adhesiolysis by Dr Christensen 06/27/20. Management per the primary service. NG out 06/29. (2) Aspiration pneumonia: Qualifiers: Aspiration pneumonia type: unspecified Laterality: bilateral Lung location: lower lobe of lung Qualified Code(s): J69.0 - Pneumonitis due to inhalation of food and vomit Code(s): J69.0 - Pneumonitis due to inhalation of food and vomit Status: Acute Assessment and Plan: Pulmonology following. Completed a 5-day course of Unasyn. Continue albuterol, pulmozyme and EZ PAP. Continue supportive care with supplemental O2, incentive spirometry, increase activity. Suspect she may need home O2 evaluation prior to discharge. Also noted to have ARLENE pleural effusion and a small chronic left apical pneumothorax. (3) Hypertension: Qualifiers: Hypertension type: essential hypertension Qualified Code(s): I10 - Essential (primary) hypertension Code(s): I10 - Essential (primary) hypertension Status: Chronic Assessment and Plan: Difficulty controlling BP. She describes she was recently started on the metoprolol around 1 month ago and has been on 3 or 4 different antihypertensives in the past due to a long history of difficulty controlling her BP. The only other medication she can recall in the past was irbesartan. Increase her oral metoprolol to 50mg BID today; amlodipine added this stay and increased today. Continue IV hydralazine PRN. NPO at midnight for renal doppler in AM to rule out renal artery stenosis given her long history of persistent HTN. (4) Pleural effusion: Code(s): J90 - Pleural effusion, not elsewhere classified Status: Acute Assessment and Plan: s/p US thoracentesis on 06/24/20. Likely contributing to shortness of breath. Pulmonology following. See above. (5) Pneumothorax: Qualifiers: Pneumothorax type: unspecified pneumothorax Qualified Code(s): J93.9 - Pneumothorax, unspecified Code(s): J93.9 - Pneumothorax, unspecified Status: Chronic Assessment and Plan: Chronic; pulm following. (6) Lower extremity edema: Code(s): R60.0 - Localized edema Status: Acute Assessment and Plan: New in the postoperative period. May be just related to fluid retention however will order lower extremity venous doppler. Additional Plan Thank you for allowing me to participate in this patient's care. Please do not hesitate to call for any questions or concerns. Will follow with you while she is here. Subjective Date/time seen: 07/02/20 1215 Interval history: Ms. Lopez is an 80yo F admitted for small bowel obstruction and aspiration pneumonia. She is seen in follow up today now POD#5 s/p exploratory laparotomy with adhesiolysis. She is tolerating oral intake and denies abdominal pain. No BM so far today but had one yesterday. She denies chest pain. She describes a long history of feeling short of breath and tells me today her SOB feels about the same as normal. Leg swelling is new since surgery, denies calf pain. Review of Systems Review of Systems: Narrative: Twelve systems were reviewed with pertinent positives and negatives as per HPI. Exam Narrative: Exam Narrative: General: Elderly female resting supine in bed in no acute distress. HEENT: Normocephalic, EOMI, oral mucosa tacky. Cardiovascul
--- NOTE | 2020-07-02 14:58 | PC.NURSE ---
Patient to ultrasound per stretcher.
--- NOTE | 2020-07-02 15:30 | PC.NURSE ---
Patient return from ultrasound.
[2020-07-02] MEDS: FUROSEMIDE INJ 40 MG/4 ML VIAL IV PUSH (15:32)
--- NOTE | 2020-07-02 16:44 | PM.PNPUL ---
Progress Note: A&P Assessment and Plan (1) Pleural effusion: Code(s): J90 - Pleural effusion, not elsewhere classified Status: Acute Assessment and Plan: *recurrent right pleural effusion, much larger today than 3 days ago 06/29/2020 * Will repeat thoracentesis tomorrow, send for same studies as last time including cytology; fluid was hemorrhagic, suspicious for malignancy. Will see if IR can do this, and if not I will perform thoracentesis. * echo to evaluate for cardiac function * remains on low flow O2 with adequate saturation a half liter/min and sat 93-95% * discussed with ELLIOT Smith (2) Aspiration pneumonia: Qualifiers: Aspiration pneumonia type: unspecified Laterality: bilateral Lung location: lower lobe of lung Qualified Code(s): J69.0 - Pneumonitis due to inhalation of food and vomit Code(s): J69.0 - Pneumonitis due to inhalation of food and vomit Status: Acute Assessment and Plan: - completed Unasyn for aspiration pneumonia - incentive spirometer Q2h while awake - up into chair bid and encourage mobilization with PT/OT - flutter valve may also be helpful (3) Bilateral atelectasis: Code(s): J98.11 - Atelectasis Status: Acute Assessment and Plan: (4) Small bowel obstruction: Code(s): K56.609 - Unspecified intestinal obstruction, unspecified as to partial versus complete obstruction Status: Acute Assessment and Plan: POD #5 exp lap with SAMMY, NG, bowel rest, feels better, eating soft diet (5) Pneumothorax: Qualifiers: Pneumothorax type: unspecified pneumothorax Qualified Code(s): J93.9 - Pneumothorax, unspecified Code(s): J93.9 - Pneumothorax, unspecified Status: Chronic Assessment and Plan: Left side, chronic, present for a couple of years on prior images Subjective Date/time seen: 07/02/20 16:44 This 80 yo female is seen for aspiration pneumonia, R pleural effusion tapped 06/24; has a small chronic left ptx. POD #5 exp lap, lysis of adhesions. Her CXR shows a significant increase in the Right pleural effusion. She is more short of breath, not coughing or having sputum. On O2 half liter/min, very low flow. She has not had an echo recently, no history of CHF. Review of Systems Review of Systems: All systems reviewed & are unremarkable except as noted in HPI and below Exam Const: General: comfortable (mild increase in respiratory rate ) and no acute distress Eyes: General: appearance normal, both eyes and all related structures Neck: Neck: supple and no JVD Lymphatic: lymphadenopathy not noted Resp: Auscultation: diminished lung sounds (right base) Cardio: Rate: regular rate Rhythm: regular rhythm Heart sounds: no murmurs GI: Inspection: other (midline devika) Auscultation: abnormal bowel sounds (no bowel sounds ) Skin: General skin exam: normal color and no rashes or lesions noted Neuro: Cognition (Neuro): normal cognition Speech: normal speech Extrem: General: normal to inspection Psych: Mental Status: mental status grossly normal Affect: normal affect Objective Data Vital Signs Vital Signs: Vital Signs - 24 hr 07/01/20 18:00 07/01/20 20:00 07/01/20 20:04 Temperature 36.4 C 36.9 C Pulse Rate 66 75 66 Respiratory Rate 20 24 H Blood Pressure 155/64 H 206/68 H Pulse Oximetry 95 93 07/01/20 20:18 07/01/20 20:35 07/01/20 21:20 Temperature Pulse Rate 75 79 Respiratory Rate 16 16 Blood Pressure 182/90 H Pulse Oximetry 93 07/02/20 00:00 07/02/20 01:09 07/02/20 04:00 Temperature 36.2 C L 36.2 C L Pulse Rate 54 L 64 73 Respiratory Rate 24 H 18 26 H Blood Pressure 161/76 H
[2020-07-02] MEDS: hydrALAZINE HCL 20 MG/ML VIAL 10 MG IV PUSH (20:59)
[2020-07-02] MEDS: METOPROLOL TARTRATE 50 MG TAB PO (21:00)
[2020-07-03] VITALS (24 sets, daily range): BP systolic 128–181; BP diastolic 52–93; PULSE 57–86; RESP 18–24; TEMP 36.6–37.2; O2SAT 92–96
--- NOTE | 2020-07-03 | ECHO_ITS ---
Patient Info Name: Balbina Lopez Age: 80 years : 1940 Gender: Female Ht: 64 in Wt: 136 lbs BSA: 1.68 m2 HR: 60 bpm BP: 146 / 62 mmHg Heart Rhythm: Sinus Rhythm Technical Quality: Good Exam Date: 07/03/2020 10:58 AM Exam Location: [facility] Pulmonary Exam Room: 247 Patient Status: Inpatient Admit Date: 06/22/2020 Staff Ordering Physician: Jeanine Jones PA-C Training Program Manager: Bernie Larsen RDCS Attending Provider: Michael Porter MD Exam Type: CA echo doppler color flow Study Info Indications - hypoxia /pleural effusion sob Complete two-dimensional, color flow and Doppler transthoracic echocardiogram is performed. Summary 1. Complete two-dimensional, color flow and Doppler transthoracic echocardiogram is performed. 2. Left ventricular chamber dimension is normal. 3. Left ventricular systolic function is normal, estimated at 60-65%. 4. Left atrial chamber dimension is moderately enlarged. 5. There is mild aortic valve sclerosis. Left Ventricle Left ventricular chamber dimension is normal. Left ventricular systolic function is normal, estimated at 60-65%. There is mild concentric increased left ventricular wall thickness. The left ventricular diastolic function is grade I diastolic dysfunction. Right Ventricle Right ventricular chamber dimension is normal. Left Atria Left atrial chamber dimension is moderately enlarged. Right Atria Right atrial chamber dimension is normal. Aortic Valve The aortic valve is trileaflet. There is mild aortic valve sclerosis. Pulmonic Valve The pulmonic valve is normal. Mitral Valve The mitral valve has normal leaflets. Tricuspid Valve The tricuspid valve leaflets are normal. There is mild tricuspid valve regurgitation. Pericardium/Pleural The pericardium appears normal. Aorta The aortic root size at the sinus of Valsalva is normal. Left Ventricular Outflow Tract Name Value Normal LVOT 2D LVOT Diameter 2.0 cm LVOT Doppler LVOT Peak Gradient 4 mmHg LVOT Mean Gradient 2 mmHg LVOT VTI 22 cm LVOT VTI/AV VTI Ratio 0.7 LVOT Stroke Volume 66 ml LVOT CO 13.6 l/min LVOT CI 8.1 l/min/m2 Pulmonic Valve Name Value Normal PV Doppler PV Peak Gradient 5 mmHg PV Regurgitation Doppler [place] Peak End Diastolic Velocity 124 cm/s Mitral Valve Name Value Normal MV Doppler -----
[2020-07-03] MEDS: ALBUTEROL SULFATE NEB 2.5 MG/0.5 ML INH INHALATION ×4 (01:46→20:13)
[2020-07-03 06:06] LABS: Hematocrit 33.4 % (37.0-47.0); Hemoglobin 11.4 g/dL (12.0-15.0); Mean Corpuscular HGB Conc 34.1 g/dl (32-36); Mean Corpuscular Volume 96.8 fl (80-100); Mean Platelet Volume 12.2 fl (7.4-10.4); Platelet Count Result 230 k/mm3 (150-375); Red Blood Count 3.45 M/mm3 (4.2-5.4); Red Cell Distribution Width 15.7 % (11.5-14.5); White Blood Count 11.4 K/mm3 (4.5-10.0)
[2020-07-03 06:59] LABS: Anion Gap 3 mmol/L (8-16); Blood Urea Nitrogen 6 mg/dL (7-17); Calcium 8.2 mg/dL (8.4-10.2); Carbon Dioxide 28 mmol/L (22-30); Chloride 103 mmol/L (98-107); Estimated CRCL calculation 79 ml/min; Estimated Glomerular Filt Rate > 60; Glucose 98 mg/dL (65-105); Potassium 3.3 mmol/L (3.4-5.0); Sodium 134 mmol/L (137-145)
[2020-07-03 08:54] LABS: INR 1.2; Partial Thromboplastin Time 22.8 SECONDS (22.3-36.8); Prothrombin Time 14.5 Seconds (11.1-14.7)
[2020-07-03 09:01] LABS: Lactate Dehydrogenase 593 U/L (313-618)
[2020-07-03] MEDS: DORNASE ALFA INH SOLN 1 MG/ML 2.5 ML AMP 2.5 MG INHALATION ×2 (09:10→20:13)
[2020-07-03] MEDS: METOPROLOL TARTRATE 50 MG TAB PO ×2 (09:44→20:39)
[2020-07-03] MEDS: amLODIPine BESYLATE 5 MG TABLET 10 MG PO (09:44)
[2020-07-03] MEDS: FAMOTIDINE 20 MG/2 ML VIAL IV PUSH ×2 (09:44→20:39)
[2020-07-03] MEDS: KCL 20 MEQ/SW 100 ML 100 ML 50 MEQ IVPB (09:45)
--- NOTE | 2020-07-03 10:51 | PM.IMPN ---
Progress Note: A&P Assessment and Plan (1) Small bowel obstruction: Code(s): K56.609 - Unspecified intestinal obstruction, unspecified as to partial versus complete obstruction Status: Acute Assessment and Plan: Patient presented with nausea/vomiting/abdominal pain; imaging demonstrated small bowel obstruction. Now POD#6 s/p ex lap with adhesiolysis by Dr Christensen 06/27/20. Management per the primary service. NG out 06/29. (2) Aspiration pneumonia: Qualifiers: Aspiration pneumonia type: unspecified Laterality: bilateral Lung location: lower lobe of lung Qualified Code(s): J69.0 - Pneumonitis due to inhalation of food and vomit Code(s): J69.0 - Pneumonitis due to inhalation of food and vomit Status: Acute Assessment and Plan: Pulmonology following. Completed a 5-day course of Unasyn. Continue albuterol, pulmozyme and EZ PAP. Continue supportive care with supplemental O2, incentive spirometry, increase activity. Suspect she may need home O2 evaluation prior to discharge. Also noted to have ARLENE pleural effusion and a small chronic left apical pneumothorax. (3) Hypertension: Qualifiers: Hypertension type: essential hypertension Qualified Code(s): I10 - Essential (primary) hypertension Code(s): I10 - Essential (primary) hypertension Status: Chronic Assessment and Plan: Difficulty controlling BP, finally with some improvement today. She describes she was recently started on the metoprolol around 1 month ago and has been on 3 or 4 different antihypertensives in the past due to a long history of difficulty controlling her BP. The only other medication she can recall in the past was irbesartan. Increase her oral metoprolol to 50mg BID; amlodipine added this stay. Continue IV hydralazine PRN. Renal doppler shows no evidence of renal artery stenosis. (4) Pleural effusion: Code(s): J90 - Pleural effusion, not elsewhere classified Status: Acute Assessment and Plan: s/p US thoracentesis on 06/24/20. Likely contributing to shortness of breath. Pulmonology following. Repeat CXR with worsening effusion; now s/p another thoracentesis this morning 07/03. (5) Pneumothorax: Qualifiers: Pneumothorax type: unspecified pneumothorax Qualified Code(s): J93.9 - Pneumothorax, unspecified Code(s): J93.9 - Pneumothorax, unspecified Status: Chronic Assessment and Plan: Chronic; pulm following. (6) Lower extremity edema: Code(s): R60.0 - Localized edema Status: Acute Assessment and Plan: New in the postoperative period. LE dopplers show now DVT. Elevate legs and increase activity. Additional Plan Thank you for allowing me to participate in this patient's care. Please do not hesitate to call for any questions or concerns. Will follow with you while she is here. Subjective Date/time seen: 07/03/20 0945 Interval history: Ms. Lopez is an 80yo F admitted for small bowel obstruction and aspiration pneumonia. She is seen in follow up today now POD#6 s/p exploratory laparotomy with adhesiolysis. She is tolerating oral intake and denies abdominal pain. Last BM was 2 days ago. She denies chest pain. SOB is about the same. Review of Systems Review of Systems: Narrative: Twelve systems were reviewed with pertinent positives and negatives as per HPI. Exam Narrative: Exam Narrative: General: Elderly female resting supine in bed in no acute distress. HEENT: Normocephalic, EOMI, oral mucosa tacky. Cardiovascular: Rate and rhythm are regular. Respiratory: Diminished breath sounds with expiratory wheezes ARLENE. Respirations are even and nonlabored, a bit of conversa
--- NOTE | 2020-07-03 11:40 | PC.NURSE ---
Patient to radiology department via stretcher for Ultrasounded Guided Right Thoracentesis. Consent singed and on the chart. Patient on 0.5 liters oxygen via nasal cannula with Potassium rider infusing in left forearm IV.
[2020-07-03 12:43] LABS: pH Pleural Fluid > 7.500 (7.210-7.500)
--- NOTE | 2020-07-03 12:45 | PC.NURSE ---
Patient returned from radiology s/p Ultrasound Guided Right Thoracentesis with bandaid to right mid back. Patient on 0.5 liters oxygen via nasal cannula. PIV saline locked at this time.
[2020-07-03] MEDS: SODIUM CHLORIDE 0.9% IV 250 ML 75 ML (12:58)
[2020-07-03 13:33] LABS: Appearance Pleural Fluid Bloody (Clear); Color Pleural Fluid Red (Colorless); Pleural fluid source Pleural fluid
[2020-07-03 13:34] LABS: Lymphocytes Pleural Fluid 52 %; Mesothelial Cells Pleural Flui 8 %; Monocytes Pleural Fluid 6 %; Neutrophils Pleural Fluid 34 % (0-25)
--- NOTE | 2020-07-03 19:45 | PM.PNPUL ---
Progress Note: A&P Assessment and Plan (1) Pleural effusion: Code(s): J90 - Pleural effusion, not elsewhere classified Status: Acute Assessment and Plan: *recurrent right pleural effusion, repeat tap shows same much larger today than 3 days ago 06/29/2020 * Repeat tap shows many RBC, fluid again was hemorrhagic, suspicious for malignancy. * echo was unremarkable * remains on low flow O2 with adequate saturation a half liter/min and sat 93-95% * discussed with ELLIOT Smith (2) Aspiration pneumonia: Qualifiers: Aspiration pneumonia type: unspecified Laterality: bilateral Lung location: lower lobe of lung Qualified Code(s): J69.0 - Pneumonitis due to inhalation of food and vomit Code(s): J69.0 - Pneumonitis due to inhalation of food and vomit Status: Acute Assessment and Plan: - completed Unasyn for aspiration pneumonia - incentive spirometer Q2h while awake - up into chair bid and encourage mobilization with PT/OT - flutter valve may also be helpful (3) Bilateral atelectasis: Code(s): J98.11 - Atelectasis Status: Acute Assessment and Plan: (4) Small bowel obstruction: Code(s): K56.609 - Unspecified intestinal obstruction, unspecified as to partial versus complete obstruction Status: Acute Assessment and Plan: POD #6 exp lap with SAMMY, NG, bowel rest, feels better, eating soft diet (5) Pneumothorax: Qualifiers: Pneumothorax type: unspecified pneumothorax Qualified Code(s): J93.9 - Pneumothorax, unspecified Code(s): J93.9 - Pneumothorax, unspecified Status: Chronic Assessment and Plan: Left side, chronic, present for a couple of years on prior images Subjective Date/time seen: 07/03/20 19:45 This 80 yo female is seen for aspiration pneumonia, R pleural effusion tapped 06/24 and again today 07/03 has a small chronic left ptx. POD #6 exp lap, lysis of adhesions. Due to increase in the size of the right pleural effusion, this was tapped again, she had an echo and renal ultrasound today. Less short of breath since thoracentesis today. On O2 half liter/min, very low flow. Echo today is unremarkable. 07/03/2020 Complete two-dimensional, color flow and Doppler transthoracic echocardiogram is performed. 2. Left ventricular chamber dimension is normal. 3. Left ventricular systolic function is normal, estimated at 60-65%. 4. Left atrial chamber dimension is moderately enlarged. 5. There is mild aortic valve sclerosis. Review of Systems Review of Systems: All systems reviewed & are unremarkable except as noted in HPI and below Exam Const: General: comfortable (mild increase in respiratory rate ) and no acute distress Eyes: General: appearance normal, both eyes and all related structures Neck: Neck: supple and no JVD Lymphatic: lymphadenopathy not noted Resp: Auscultation: diminished lung sounds (right base) Cardio: Rate: regular rate Rhythm: regular rhythm Heart sounds: no murmurs GI: Inspection: other (midline devika) Auscultation: abnormal bowel sounds (no bowel sounds ) Skin: General skin exam: normal color and no rashes or lesions noted Neuro: Cognition (Neuro): normal cognition Speech: normal speech Extrem: General: normal to inspection Psych: Mental Status: mental status grossly normal Affect: normal affect Objective Data Vital Signs Vital Signs: Vital Signs - 24 hr 07/02/20 20:00 07/02/20 21:00 09/11/20 21:08 Temperature Pulse Rate 81 72 86 Respiratory Rate 18 Blood Pressure Pulse Oximetry 07/02/20 21:11 07/02/20 21:17 07/02/20 22:00 Temperature 37.1 C Pulse Rate 85 86 83 Respi
[2020-07-04] VITALS (21 sets, daily range): BP systolic 131–168; BP diastolic 50–62; PULSE 53–74; RESP 18–20; TEMP 36–37.2; O2SAT 93–97
[2020-07-04] MEDS: ALBUTEROL SULFATE NEB 2.5 MG/0.5 ML INH INHALATION ×4 (02:14→20:28)
[2020-07-04 06:10] LABS: Basophils Absolute Auto 0.1 K/mm3 (0.0-0.1); Basophils Percent Auto 0.7 % (0.2-1.2); Eosinophils Absolute Auto 0.3 K/mm3 (0-0.3); Eosinophils Percent Auto 2.9 % (0-4.4); Hematocrit 31.2 % (37.0-47.0); Hemoglobin 10.5 g/dL (12.0-15.0); Immature Granulocyte Absolute 0.22 K/mm3 (0.00-0.031); Immature Granulocyte Percent A 2.1 % (0-0.5); Lymphocytes Absolute Auto 1.76 K/mm3 (0.9-3.2); Lymphocytes Percent Auto 16.4 % (18.3-44.2); Mean Corpuscular HGB Conc 33.7 g/dl (32-36); Mean Corpuscular Hemoglobin 32.7 pg (26-34); Mean Corpuscular Volume 97.2 fl (80-100); Mean Platelet Volume 11.4 fl (7.4-10.4); Monocytes Absolute Auto 1.3 K/mm3 (0.1-0.6); Neutrophils Absolute Auto 7.1 K/mm3 (1.3-6.7); Neutrophils Percent Auto 65.9 % (45.5-73.1); Platelet Count Result 228 k/mm3 (150-375); Red Blood Count 3.21 M/mm3 (4.2-5.4); Red Cell Distribution Width 15.3 % (11.5-14.5); White Blood Count 10.7 K/mm3 (4.5-10.0)
[2020-07-04 06:30] LABS: Alanine Aminotransferase 26 U/L (4-35); Albumin Level 2.5 g/dL (3.5-5.1); Alkaline Phosphatase 52 U/L (38-126); Anion Gap 2 mmol/L (8-16); Aspartate Amino Transferase 30 U/L (14-36); Bilirubin,Total 0.4 mg/dL (0.2-1.3); Blood Urea Nitrogen 5 mg/dL (7-17); Calcium 8.3 mg/dL (8.4-10.2); Carbon Dioxide 27 mmol/L (22-30); Chloride 106 mmol/L (98-107); Estimated CRCL calculation 65 ml/min; Estimated Glomerular Filt Rate > 60; Glucose 94 mg/dL (65-105); Magnesium 1.8 mg/dL (1.6-2.3); Potassium 3.4 mmol/L (3.4-5.0); Sodium 135 mmol/L (137-145)
[2020-07-04] MEDS: amLODIPine BESYLATE 5 MG TABLET 10 MG PO (08:37)
[2020-07-04] MEDS: METOPROLOL TARTRATE 50 MG TAB PO ×2 (08:37→21:44)
[2020-07-04] MEDS: MAGNESIUM OXIDE 200 MG TABLET PO ×2 (08:37→21:44)
[2020-07-04] MEDS: FAMOTIDINE 20 MG/2 ML VIAL IV PUSH ×2 (08:37→21:45)
[2020-07-04] MEDS: ENOXAPARIN 40 MG/0.4 ML SYRINGE SUB-Q (08:37)
[2020-07-04] MEDS: POTASSIUM CHLORIDE 20 MEQ TABLET.ER PO (08:37)
[2020-07-04] MEDS: DORNASE ALFA INH SOLN 1 MG/ML 2.5 ML AMP 2.5 MG INHALATION ×2 (09:10→20:29)
--- NOTE | 2020-07-04 11:05 | PM.IMPN ---
Progress Note: A&P Assessment and Plan (1) Small bowel obstruction: Code(s): K56.609 - Unspecified intestinal obstruction, unspecified as to partial versus complete obstruction Status: Acute Assessment and Plan: Patient presented with nausea/vomiting/abdominal pain; imaging demonstrated small bowel obstruction. Now POD#7 s/p ex lap with adhesiolysis by Dr Christensen 06/27/20. Management per the primary service. NG out 06/29. (2) Aspiration pneumonia: Qualifiers: Aspiration pneumonia type: unspecified Laterality: bilateral Lung location: lower lobe of lung Qualified Code(s): J69.0 - Pneumonitis due to inhalation of food and vomit Code(s): J69.0 - Pneumonitis due to inhalation of food and vomit Status: Acute Assessment and Plan: Pulmonology following. Completed a 5-day course of Unasyn. Continue albuterol, pulmozyme and EZ PAP. Continue supportive care with incentive spirometry, increase activity. Improving, on room air today. Also noted to have ARLENE pleural effusion and a small chronic left apical pneumothorax. (3) Hypertension: Qualifiers: Hypertension type: essential hypertension Qualified Code(s): I10 - Essential (primary) hypertension Code(s): I10 - Essential (primary) hypertension Status: Chronic Assessment and Plan: Difficulty controlling BP, finally with some improvement now. She describes she was recently started on the metoprolol around 1 month ago and has been on 3 or 4 different antihypertensives in the past due to a long history of difficulty controlling her BP. The only other medication she can recall in the past was irbesartan. Increased her oral metoprolol to 50mg BID; amlodipine added this stay. Continue IV hydralazine PRN. Renal doppler shows no evidence of renal artery stenosis. (4) Pleural effusion: Code(s): J90 - Pleural effusion, not elsewhere classified Status: Acute Assessment and Plan: s/p US thoracentesis on 06/24/20 and another 07/03/20. Much improved after 2nd thoracentesis. Pulmonology following. (5) Pneumothorax: Qualifiers: Pneumothorax type: unspecified pneumothorax Qualified Code(s): J93.9 - Pneumothorax, unspecified Code(s): J93.9 - Pneumothorax, unspecified Status: Chronic Assessment and Plan: Chronic; pulm following. (6) Lower extremity edema: Code(s): R60.0 - Localized edema Status: Acute Assessment and Plan: Improved. LE dopplers show no DVT. Elevate legs and increase activity. Additional Plan Thank you for allowing me to participate in this patient's care. Please do not hesitate to call for any questions or concerns. Will follow with you while she is here. Subjective Date/time seen: 07/04/20 1030 Interval history: Ms. Lopez is an 80yo F admitted for small bowel obstruction, aspiration pneumonia, pleural effusion. She is seen in follow up today now POD#7 s/p exploratory laparotomy with adhesiolysis. She is slowly improving. She is tolerating oral intake and denies abdominal pain. Last BM was this morning and formed. She denies chest pain. Shortness of breath is much improved after thoracentesis yesterday and she is tolerating room air this morning, RN in the room to spot check O2 - 96% saturation on room air. Review of Systems Review of Systems: Narrative: Twelve systems were reviewed with pertinent positives and negatives as per HPI. Exam Narrative: Exam Narrative: General: Elderly female resting sitting up in bedside chair in no acute distress. HEENT: Normocephalic, EOMI, oral mucosa moist. Cardiovascular: Rate and rhythm are regular. Respiratory: Decreased breath sounds on th
[2020-07-05] VITALS (11 sets, daily range): BP systolic 131–161; BP diastolic 52–63; PULSE 55–90; RESP 16–18; TEMP 36.4–37.1; O2SAT 94–96
[2020-07-05] MEDS: ALBUTEROL SULFATE NEB 2.5 MG/0.5 ML INH INHALATION ×2 (02:02→09:29)
[2020-07-05 05:58] LABS: Anion Gap 4 mmol/L (8-16); Blood Urea Nitrogen 6 mg/dL (7-17); Calcium 8.7 mg/dL (8.4-10.2); Carbon Dioxide 26 mmol/L (22-30); Chloride 106 mmol/L (98-107); Estimated CRCL calculation 65 ml/min; Estimated Glomerular Filt Rate > 60; Glucose 100 mg/dL (65-105); Potassium 3.8 mmol/L (3.4-5.0); Sodium 136 mmol/L (137-145)
[2020-07-05] MEDS: amLODIPine BESYLATE 5 MG TABLET 10 MG PO (08:20)
[2020-07-05] MEDS: MAGNESIUM OXIDE 200 MG TABLET PO (08:21)
[2020-07-05] MEDS: POTASSIUM CHLORIDE 20 MEQ TABLET.ER PO (08:21)
[2020-07-05] MEDS: FAMOTIDINE 20 MG/2 ML VIAL IV PUSH (08:21)
[2020-07-05] MEDS: ENOXAPARIN 40 MG/0.4 ML SYRINGE SUB-Q (08:21)
[2020-07-05] MEDS: METOPROLOL TARTRATE 50 MG TAB PO (08:21)
[2020-07-05] MEDS: DORNASE ALFA INH SOLN 1 MG/ML 2.5 ML AMP 2.5 MG INHALATION (09:29)
--- NOTE | 2020-07-05 09:31 | PM.IMPN ---
Progress Note: A&P Assessment and Plan (1) Small bowel obstruction: Code(s): K56.609 - Unspecified intestinal obstruction, unspecified as to partial versus complete obstruction Status: Acute Assessment and Plan: Patient presented with nausea/vomiting/abdominal pain; imaging demonstrated small bowel obstruction. Now POD#8 s/p ex lap with adhesiolysis by Dr Christensen 06/27/20. Management per the primary service. NG out 06/29. Patient is medically stable for discharge today from hospitalist standpoint. (2) Aspiration pneumonia: Qualifiers: Aspiration pneumonia type: unspecified Laterality: bilateral Lung location: lower lobe of lung Qualified Code(s): J69.0 - Pneumonitis due to inhalation of food and vomit Code(s): J69.0 - Pneumonitis due to inhalation of food and vomit Status: Acute Assessment and Plan: Pulmonology following. Completed a 5-day course of Unasyn. Continue albuterol, pulmozyme and EZ PAP. Continue supportive care with incentive spirometry, increase activity. Improved, on room air now. Also noted to have ARLENE pleural effusion and a small chronic left apical pneumothorax. (3) Hypertension: Qualifiers: Hypertension type: essential hypertension Qualified Code(s): I10 - Essential (primary) hypertension Code(s): I10 - Essential (primary) hypertension Status: Chronic Assessment and Plan: Difficulty controlling BP, finally with some improvement now. She describes she was recently started on the metoprolol around 1 month ago and has been on 3 or 4 different antihypertensives in the past due to a long history of difficulty controlling her BP. The only other medication she can recall in the past was irbesartan. Increased her oral metoprolol to 50mg BID; amlodipine added this stay. Continue IV hydralazine PRN. Renal doppler shows no evidence of renal artery stenosis. Will prescribe my recommendations for antihypertension regimen on the discharge; recommend follow up with PCP in 1 week for further management of HTN. (4) Pleural effusion: Code(s): J90 - Pleural effusion, not elsewhere classified Status: Acute Assessment and Plan: s/p US thoracentesis on 06/24/20 and another 07/03/20. Much improved after 2nd thoracentesis. Pulmonology following. (5) Pneumothorax: Qualifiers: Pneumothorax type: unspecified pneumothorax Qualified Code(s): J93.9 - Pneumothorax, unspecified Code(s): J93.9 - Pneumothorax, unspecified Status: Chronic Assessment and Plan: Chronic; pulm following. (6) Lower extremity edema: Code(s): R60.0 - Localized edema Status: Acute Assessment and Plan: Improved. LE dopplers show no DVT. Elevate legs and increase activity. Additional Plan Thank you for allowing me to participate in this patient's care. Please do not hesitate to call for any questions or concerns. This patient is stable for discharge today from my standpoint. I will address HTN meds and PCP follow up on the discharge. Subjective Date/time seen: 07/05/20 09:00 Interval history: Ms. Lopez is an 80yo F admitted for small bowel obstruction, aspiration pneumonia, pleural effusion. She is seen in follow up today now POD#8 s/p exploratory laparotomy with adhesiolysis. She is doing much better. She is tolerating oral intake and denies abdominal pain. Passing gas and small BMs, patient requests Miralax. She denies chest pain. Shortness of breath is much improved after thoracentesis and she is tolerating room air this morning. Review of Systems Review of Systems: Narrative: Twelve systems were reviewed with pertinent positives and negatives as per HPI. Ex
--- NOTE | 2020-07-05 10:57 | PM.PNPUL ---
Progress Note: A&P Assessment and Plan (1) Bilateral atelectasis: Code(s): J98.11 - Atelectasis Status: Acute Assessment and Plan: Seems benign, Cand be discharged home with CT chest done in 1 month. (2) Pleural effusion: Code(s): J90 - Pleural effusion, not elsewhere classified Status: Acute Assessment and Plan: Seems transudative but benign. Prelim Cytology shows no malignancy. - Suggest repeating CT chest as outpatient in one month - can be discharged home if ambulatory oxygenation is > 90% (3) Aspiration pneumonia: Qualifiers: Aspiration pneumonia type: unspecified Laterality: bilateral Lung location: lower lobe of lung Qualified Code(s): J69.0 - Pneumonitis due to inhalation of food and vomit Code(s): J69.0 - Pneumonitis due to inhalation of food and vomit Status: Acute Subjective Date/time seen: 07/05/20 10:57 Interval history: Pt is doing well. Denies dyspnea. Had repeat thoracentesis on 07/03/20. Repeat CXR shows some residual mild bilateral pleural effusions with atelectasis but oxygenation is stable Review of Systems Review of Systems: All systems reviewed & are unremarkable except as noted in HPI and below Exam Const: General: comfortable (mild increase in respiratory rate ) and no acute distress Eyes: General: appearance normal, both eyes and all related structures Neck: Neck: supple and no JVD Lymphatic: lymphadenopathy not noted Resp: Auscultation: diminished lung sounds (right base) Cardio: Rate: regular rate Rhythm: regular rhythm Heart sounds: no murmurs GI: Inspection: other (midline devika) Auscultation: abnormal bowel sounds (no bowel sounds ) Skin: General skin exam: normal color and no rashes or lesions noted Neuro: Cognition (Neuro): normal cognition Speech: normal speech Extrem: General: normal to inspection Psych: Mental Status: mental status grossly normal Affect: normal affect Objective Data Vital Signs Vital Signs: Vital Signs - 24 hr 07/04/20 12:00 07/04/20 14:00 07/04/20 15:10 Temperature 36.7 C Pulse Rate 67 60 71 Respiratory Rate 18 18 Blood Pressure 131/51 L Pulse Oximetry 94 07/04/20 15:16 07/04/20 18:00 07/04/20 20:29 Temperature 36.5 C Pulse Rate 71 72 74 Respiratory Rate 18 20 18 Blood Pressure 166/62 H Pulse Oximetry 96 07/04/20 20:39 07/04/20 21:24 07/04/20 21:44 Temperature 37.2 C Pulse Rate 71 73 71 Respiratory Rate 18 20 Blood Pressure 168/58 H Pulse Oximetry 97 07/05/20 02:00 07/05/20 02:02 07/05/20 02:10 Temperature 37.1 C Pulse Rate 78 64 67 Respiratory Rate 18 18 18 Blood Pressure 159/63 H Pulse Oximetry 96 07/05/20 06:00 07/05/20 08:21 07/05/20 09:33 Temperature 36.4 C L Pulse Rate 55 L 64 63 Respiratory Rate 16 18 Blood Pressure 161/56 H Pulse Oximetry 96 94 07/05/20 09:42 07/05/20 10:00 Temperature 36.7 C Pulse Rate 72 64 Respiratory Rate 18 16 Blood Pressure 131/52 L Pulse Oximetry 94 Intake/Output Intake/Output: Intake & Output 07/02/20 07/03/20 07/04/20 07/05/20 23:59 23:59 23:59 23:59 Intake Total 1364 640 880 610 Output Total 2875 6305 1500 700 [facility] -[phone] -620 -90 Meds/Results Medications: Active Medications Generic Name Dose Route Start Last Admin Trade Name Javed PRN Reason Stop Dose Admin Albuterol 2.5 mg 07/01/20 14:00 07/05/20 09:29 Albuterol Sulf Neb 2.5mg/0.5ml INHALATION 2.5 mg Q6HRT JOZEF Administration Amlodipine Besylate 10 mg 07/02/20 09:00 07/05/20 08:20 Norvasc PO 10 mg QAM JOZEF Administration Dornase Justice 2.5 mg 07/01/20 20:00 07/05/20 09:29 Pulmozyme INHALATION 2.5 mg Q12HRT JOZEF Administration Enoxaparin Sodium 40 mg 06/23/20 09:00 07/05/20 08:21 Lovenox SUB-Q 40 mg DAILY JOZEF Administration Famotidine 20 mg 06/22/20 21:00 07/05/20 08:21 Pepcid Iv IV PUSH 20 mg Q12HR JOZEF Administration Hydrala
[2020-07-05] MEDS: polyethylene glycoL 3350 17 GM POWD.PACK PO (11:59)
--- NOTE | 2020-07-05 14:31 | PCRCNOTE ---
Home oxygen evaluation completed. Patient does not require home oxygen.
--- NOTE | 2020-07-05 14:52 | PC.NURSE ---
Patient refused flu vaccine.
--- NOTE | 2020-07-07 10:20 | PM.DS ---
DS: Admitting Diagnosis Admitting Diagnosis Admitting Diagnosis: small bowel obstruction DS: Discharge Diagnosis Discharge Diagnosis (1) Small bowel obstruction: Code(s): K56.609 - Unspecified intestinal obstruction, unspecified as to partial versus complete obstruction Status: Acute Assessment and Plan: s/p ex lap, SAMMY, doing well, +bowel fxn, chung diet (2) Pleural effusion: Code(s): J90 - Pleural effusion, not elsewhere classified Status: Acute Assessment and Plan: s/p thoracentesis, no further issues, good O2 sats on RA (3) Pneumothorax: Qualifiers: Pneumothorax type: unspecified pneumothorax Qualified Code(s): J93.9 - Pneumothorax, unspecified Code(s): J93.9 - Pneumothorax, unspecified Status: Chronic Assessment and Plan: chronic, no treatment necessary DS: Summary Hospital Course Reason for hospitalization: small bowel obstruction Hospital Course: Pt admitted from ED c/o abd pain and SOB. Pt found to have SBO and chronic PTX and pleural effusion. Pt admitted and extensive workup done including multiple imaging modalities. Pt underwent throracentesis for R pleural effusion and SOB resolved. Pt cont to have SBO despite consevative tx. Given this, pt taken to OR and ex lap, SAMMY performed. Pt did well postop, and shortly after began having bowel fxn. At time of discharge, pt chung diet and having daily bowel movts. Pt to f/u 1 wk for staple removal. Status at Discharge Functional status at discharge: independent ambulation Overall status at discharge: patient is progressing back to baseline Time Spent with Patient Time attestation: Total time spent providing and/or coordinating discharge services: Time spent: Less than 30 minutes Exam Const: General: no acute distress Resp: Auscultation: clear to auscultation bilaterally Cardio: Rate: regular rate Rhythm: regular rhythm GI: Other: soft, sl dist, virgilio TTP, incision C/D/I DS: Data Data Completed and Pending Completed studies during hospitalization: Pending at discharge 06/24/20 09:47 Cytology [PTH] Routine 07/03/20 07:40 Cytology [PTH] Routine Labs on day of discharge: Preliminary micro results at discharge 07/03/20 12:03 Anaerobic Culture - Preliminary Pleural Fluid Aerobic Culture - Preliminary Fungal Culture - Preliminary 07/03/20 12:06 Acid Fast Bacilli Culture - Preliminary Pleural Fluid 06/24/20 13:31 Fungal Culture - Preliminary Pleural Fluid 06/24/20 13:31 Acid Fast Bacilli Culture - Preliminary Pleural Fluid Discharge Plan Discharge Attending physician on discharge: Jason Velez Consulting providers: Yana Núñez ; Jeanine Jones ; Mustapha Panda ; Mariana Ma ; Isaias Maldonado ; Adelfo Chin ; Tom Baldwin ; Sandeep Hughes ; Preeti Seo ; Adonis Goetz ; Norbert Manrique ; El Jacob V. Discharging Clinician: Jeanine Jones Anticipated Discharge Date/Time: 07/05/20 12:10 Patient Disposition: Home, Self-Care Activity: may shower and no straining Diet: as tolerated and other - see discharge instructions Wound Care Instructions: incision open to air Discharge Instructions: Please call to schedule a follow up appointment with your primary care provider in 1 week for hospital follow up and help managing your blood pressure. Please call [phone] to schedule a follow up appointment with your general surgeon, Dr Christensen, in 1 week from now for staple removal. Please call [phone] to schedule a follow up appointment with the manager strategy, Dr Núñez, in [address] scan of chest in 1 month for follow up. Continue using a bowel regimen with stool softeners and laxatives as needed to help keep bowel movements regular. You can use miralax once daily to stay regular, and can use dulcolax tablets or suppositories as needed for constipation. You can find Miralax, laxatives and supposi
[2020-07-07 14:24] LABS: Glucose Pleural Fluid 103 mg/dL; Total Protein Pleural Fluid <3.0 g/dL
[2020-07-08 01:34] LABS: Amylase, Pleural Fluid <10 U/L
[2020-07-08 13:15] LABS: Albumin Pleural Fluid 1.7 g/dL
== END 2020-07-05 15:15 | disposition home or self-care (01) | DRG 335 ==
LOC: ANHED 04:24 → ANH2MED 04:59
PROVIDERS: Family Medicine; Physician Assistant; Admitting Provider Surgery; Emergency Provider Emergency Medicine; PCP Internal Medicine; Visit Provider Surgery
PROC: 0DNB0ZZ Release Ileum, Open Approach (ICD-10-PCS; CPT 49000; principal; 2020-06-27 07:30)
DX: K56.50 Intestinal adhesions [bands], unspecified as to partial versus complete obstruction (principal); J69.0 Pneumonitis due to inhalation of food and vomit; J90 Pleural effusion, not elsewhere classified; J93.81 Chronic pneumothorax; J98.11 Atelectasis; R09.02 Hypoxemia; R60.0 Localized edema; E78.5 Hyperlipidemia, unspecified; F41.9 Anxiety disorder, unspecified; I10 Essential (primary) hypertension; Z90.49 Acquired absence of other specified parts of digestive tract; Z90.79 Acquired absence of other genital organ(s); Z79.899 Other long term (current) drug therapy
CPT/HCPCS: 32555; 36415; 36600; 71045; 71046; 71250; 71275; 74018; 74177; 74240; 74248; 80048; 80053; 81001; 82042; 82150; 82805; 82945; 83615; 83690; 83735; 83986; 84155; 84157; 84311; 84478; 84484; 85025; 85027; 85610; 85730; 87015; 87070; 87075; 87102; 87116; 87205; 87206; 88104; 88108; 88184; 88305; 89051; 93005; 93306; 93970; 93976; 94618; 94640; 96361; 96374; 96375; 97110; 97116; 97161; 97165; 97535; 99285; A9270; G0378; J0295; J0330; J0360; J1100; J1170; J1650; J1741; J1940; J2270; J2405; J2704; J2710; J3010; J3480; J7030; J7050; J7120; Q9967

== ENCOUNTER 2020-08-16 10:43 | Outpatient (CLI) | payer BC, SELFPAY ==
--- NOTE | ~2020-08-16 | XR_ITS ---
EXAMINATION: XR chest 2V DATE: 08/16/2020 11:13 INDICATION: Pneumonitis due to inhalation of food and vomit. TECHNIQUE: Frontal and lateral views of the chest were obtained. 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 No pleural effusion or pneumothorax. The heart size is normal. There are bilater al breast implants. IMPRESSION: 1. No acute cardiopulmonary disease. Reviewed, dictated and finalized at location A.
== END 2020-08-16 10:44 | disposition home or self-care (01) ==
LOC: ANHIMG 10:54
PROVIDERS: PCP Internal Medicine; Visit Provider Internal Medicine Critical Care Medicine
DX: J69.0 Pneumonitis due to inhalation of food and vomit (principal)
CPT/HCPCS: 71046

== ENCOUNTER 2022-04-02 10:23 | Emergency (ER) | payer BC, SELFPAY ==
[2022-04-02 10:30] VITALS: BP 163/111; PULSE 99; RESP 18; TEMP 36.6; O2SAT 99
--- NOTE | 2022-04-02 10:54 | ED.GENADULT ---
HPI - General Adult General Chief complaint: Skin/Abscess/Foreign Body Stated complaint: Insect Bite Time Seen by Provider: 04/02/22 10:50 History of Present Illness HPI narrative: 81-year-old female patient presents to the [facility] with complaints of a bug bite to the right thigh that has been there for about 5 days. Patient states it started off as a welts that was very itchy and states then it progressed in an elongated and now it is very sore. Patient states she has been putting ice on it as well as hydrocortisone cream but it has not gone away and it is continued to get worse. Patient states she is overall just been feeling not well but denies any fevers at this time. Related Data Home Medications Medication Instructions Recorded Confirmed pravastatin 20 mg tablet 20 mg PO DAILY 06/22/20 04/02/22 Allergies Allergy/AdvReac Type Severity Reaction Status Date / Time No Known Allergies Allergy Verified 04/02/22 10:44 Review of Systems Review of Systems: CONSTITUTIONAL: Denies fever, chills, or sweats. EYES: Denies visual changes, redness, or discharge. ENT: Denies rhinorrhea, congestion, sore throat, or otalgia. CARDIOVASCULAR: Denies chest pain, palpitations, or edema. RESPIRATORY: Denies cough or dyspnea. GASTROINTESTINAL: Denies abdominal pain, nausea, vomiting, or diarrhea. GENITOURINARY: Denies dysuria or hematuria. SKIN: Positive rash/wound with itching to the right posterior thigh MUSCULOSKELETAL: Denies back pain, joint pain, or myalgia. NEUROLOGIC: Denies headache, numbness, or weakness. PSYCHIATRIC: Denies anxiety or depression. [facility] Past Medical History Medical History (Updated 04/02/22 @ 11:01 by JOSE Jimenez) Anxiety Arthritis Hypertension Other and unspecified hyperlipidemia Pneumothorax chronic left apical pneumothorax since 06/21/2018, small right pleural effusion Surgical History Surgical History History of appendectomy History of back surgery 2 surgeries History of hysterectomy Family History Family History Father Mesothelioma Mother Cerebrovascular accident Social History Social History Smoking status: Never smoker Alcohol intake: never Substance use: never Gender identity (if verbalized by the patient): Female Spiritual care concerns: No Exam Narrative: GENERAL: Well-appearing, well-nourished, and in no acute distress. HEAD: Normocephalic, atraumatic. EYES: PERRLA and EOMI. ENT: Nares clear, no rhinorrhea or epistaxis. Mucous membranes moist. NECK: Supple. No lymphadenopathy CHEST: Clear to auscultation. No respiratory distress. HEART: Regular rate and rhythm. No murmur heard. Normal peripheral pulses. ABDOMEN: Soft, nontender, nondistended, normal active bowel sounds. EXTREMITIES: Normal range of motion. No edema. SKIN: Patient does have a very bright erythemic rash noted to the posterior right thigh under the buttocks measuring approximately 7 and half centimeters by 10-1/2 cm. It is warm to the touch and tender. There is a black scabbed area noted to the center of the wound. NEURO: No focal deficits. Alert and oriented x3. Course Course Level of Care: Express Care Visit Vital Signs Vital signs: Vital signs reviewed Medical Decision Making MDM Narrative Medical decision making narrative: Discussed with patient that this does appear like a cellulitis infection most likely due to some kind of insect or possibly a spider bite. Discussed with patient that we will go ahead and treat this today with oral antibiotics and I will advise that she puts heat to the area to help bring up anything that could be under the skin to the surface. Discussed with patient if she continues to feel bad including fevers then she would need to go to the ER right away. We have marked the area today w
--- NOTE | 2022-04-02 11:02 | PC.NURSE ---
area marked with skin marker and pt verbalized understanding that if area increases outside of line line she will need to go to ER.
[2022-04-02 11:27] VITALS: BP 128/61; PULSE 87
== END 2022-04-02 11:05 | disposition home or self-care (01) ==
PROVIDERS: Emergency Provider Nurse Practitioner Family; PCP Internal Medicine
DX: L03.115 Cellulitis of right lower limb (principal); M19.90 Unspecified osteoarthritis, unspecified site; I10 Essential (primary) hypertension; E78.5 Hyperlipidemia, unspecified
CPT/HCPCS: 99213; G0463

== ENCOUNTER 2022-05-05 11:34 | Emergency (ER) | payer BC, SELFPAY ==
--- NOTE | 2022-05-05 13:01 | ED.WOUNDLAC ---
HPI - Wound/Laceration General Chief Complaint: Wound/Laceration Stated Complaint: Laceration on Foot Time Seen by Provider: 05/05/22 13:01 Source: patient Mode of arrival: ambulatory Limitations: no limitations History of Present Illness HPI narrative: 81-year-old female presents with complaint of laceration to left foot. States that approximately 1 hour prior to arrival she dropped a plate out of her cabinet that broke and a piece of glass cut her left foot. States that there was blood all over, was not able to bend over and reach foot to apply pressure. Arrived to urgent care with no dressing in place and dried blood to left foot. Ambulatory with steady gait. No other injury. All systems reviewed and negative except as noted above. Related Data Home Medications Medication Instructions Recorded Confirmed pravastatin 20 mg tablet 20 mg PO DAILY 06/22/20 04/02/22 Allergies Allergy/AdvReac Type Severity Reaction Status Date / Time No Known Allergies Allergy Verified 04/02/22 10:44 Review of Systems Review of Systems: CONSTITUTIONAL: Denies fever, chills, or sweats. EYES: Denies visual changes, redness, or discharge. ENT: Denies rhinorrhea, congestion, sore throat, or otalgia. CARDIOVASCULAR: Denies chest pain, palpitations, or edema. RESPIRATORY: Denies cough or dyspnea. GASTROINTESTINAL: Denies abdominal pain, nausea, vomiting, or diarrhea. GENITOURINARY: Denies dysuria or hematuria. SKIN: Denies rash or itching. Laceration to left foot. MUSCULOSKELETAL: Denies back pain, joint pain, or myalgia. NEUROLOGIC: Denies headache, numbness, or weakness. PSYCHIATRIC: Denies anxiety or depression. All other systems reviewed are negative, except as documented in HPI. 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, small right pleural effusion Surgical History Surgical History History of appendectomy History of back surgery 2 surgeries History of hysterectomy Family History Family History Father Mesothelioma Mother Cerebrovascular accident Social History Social History (Reviewed 08/16/20 @ 09:49 by Mary Up [facility]ie Smoking status: Never smoker Alcohol intake: never Substance use: never Gender identity (if verbalized by the patient): Female Spiritual care concerns: No Comments At time of signature, agree with nursing past medical, surgical, social and family history. There is no relevant family history pertinent to the presenting complaint. Exam Narrative: GENERAL: This is a well-nourished, well-developed patient, in no apparent distress. HEAD: normocephalic, atraumatic. EYES: PERRL. Sclera clear/white. Vision is grossly intact. EARS: External ears normal NOSE: External nose normal NECK: Neck supple, non-tender without lymphadenopathy, masses or thyromegaly. CARDIOVASCULAR: Regular rate and rhythm without murmurs, gallops, or rubs. RESPIRATORY: Clear to auscultation. Breath sounds equal bilaterally. No wheezes, rales, or rhonchi. SKIN: warm, Dry,with no suspicious lesions or rash, good texture and turgor. Approximate 1 cm laceration to dorsal aspect left foot, distal fourth metatarsal. Bleeding controlled. Laceration is superficial, does not require suture repair. NEURO: awake, alert, and oriented to person, place and time. There were no obvious focal neurologic abnormalities. EXTREMITIES: No joint tenderness, effusion, or edema noted. Course Course Level of Care: Express Care Visit Vital Signs Vital signs: Reviewed MDM - Wound/Laceration MDM Narrative Medical decision making narrative: Patient is aware of diagnosis, understands and agrees to treatment plan. Hetal landis
== END 2022-05-05 13:48 | disposition home or self-care (01) ==
PROVIDERS: Emergency Provider Nurse Practitioner Family; PCP Internal Medicine
DX: S91.312A Laceration without foreign body, left foot, initial encounter (principal); W25.XXXA Contact with sharp glass, initial encounter; M19.90 Unspecified osteoarthritis, unspecified site; I10 Essential (primary) hypertension; E78.5 Hyperlipidemia, unspecified
CPT/HCPCS: 99212; G0463

== ENCOUNTER 2022-08-08 10:50 | Outpatient (CLI) | payer BC, SELFPAY | END 2022-08-08 10:51 | disposition home or self-care (01) | LOC: ANHGOSHLAB 10:51 | PROVIDERS: PCP Emergency Medicine; Visit Provider Emergency Medicine | DX: E78.5 Hyperlipidemia, unspecified (principal); I10 Essential (primary) hypertension; Z86.39 Personal history of other endocrine, nutritional and metabolic disease | CPT/HCPCS: 99199; 36415 ==

== ENCOUNTER 2022-08-10 08:10 | Inpatient (IN) | payer BC, MEDICARE, SELFPAY ==
--- NOTE | ~2022-08-10 | XR_ITS ---
EXAMINATION: XR small bowel follow through DATE: 08/13/2022 11:48 INDICATION: Small bowel obstruction TECHNIQUE: [employer] Professional radiograph(s) of the abdomen was/were obtained. Water-soluble oral contrast was admi nistered through the existing nasogastric tube, and sequential radiographs of the abdomen were obtain ed until oral contrast was noted to be in the proximal colon. COMPARISON: None. FINDINGS: Nasogastric tube with distal tip in the body of the stomach. There is a small sliding-type hiatal her odell. There are some residual oral contrast material in the colon from the earlier small bowel study p erformed 3 days prior. There is relatively rapid transit of contrast through multiple loops of previo usly dilated small bowel in the left abdomen already on the 15 minute image. By 1 hour there is a dis cernible increase in the amount of contrast in the colon consistent with complete transitive contrast through the small bowel. There is normal caliber and mucosal fold pattern throughout the small bowel . IMPRESSION: 1. Resolution of prior small bowel obstruction with contrast extending to the colon through the now n ormal-appearing small bowel within one hour. 2. Small sliding-type hiatal hernia. Reviewed, dictated and finalized at location A. IMPRESSION: 1. Resolution of prior small bowel obstruction with contrast extending to the c olon through the now normal-appearing small bowel within one hour. 2. Small sliding-type hiatal hernia.
--- NOTE | ~2022-08-10 | XR_ITS ---
EXAMINATION: XR abdomen/kub 1V INDICATION: Small bowel obstruction TECHNIQUE: Supine views of the abdomen were obtained on 2 radiographs. COMPARISON: 08/10/2022 FINDINGS: The tip of the nasogastric tube is visualized in the stomach. Oral contrast material from r ecent small bowel series is present in the colon to the level of the rectum. No persistently dilated loops of bowel are identified. There is mild osteoarthritis of the hips. IMPRESSION: 1. No evidence of small bowel obstruction. Reviewed, dictated and finalized at location A.
--- NOTE | ~2022-08-10 | XR_ITS ---
EXAMINATION: XR abdomen/kub 1V DATE: 08/13/2022 05:38 INDICATION: Small bowel obstruction TECHNIQUE: A supine view of the abdomen on 2 radiographs was obtained. COMPARISON: 08/12/2022 FINDINGS: Nasogastric tube tip in the body of the stomach with proximal side-port at the level of the gastroeso phageal junction. Again seen is residual oral contrast material throughout the colon. Suggestion of s ome diverticula along the sigmoid colon. No dilated gas-filled small bowel to suggest obstruction. Mi ld bibasilar atelectasis. Cardiomegaly. IMPRESSION: 1. No dilated bowel to suggest obstruction. 2. Nasogastric tube in the stomach but with proximal side-port near the gastroesophageal junction. Co nsider advancement by 3-[address] the proximal side-port below level of the gastroesophageal junc tion. Reviewed, dictated and finalized at location A. IMPRESSION: 1. No dilated bowel to suggest obstruction. 2. Nasogastric tube in the stomach but with proximal side-port near the gastroe sophageal junction. Consider advancement by 3-[address] the proximal side-p ort below level of the gastroesophageal junction.
--- NOTE | ~2022-08-10 | XR_ITS ---
EXAMINATION: XR abdomen NG/feed tube insert INDICATION: Nasogastric tube placement TECHNIQUE: Portable AP KUB-NG at 1034 hours COMPARISON: CT from today FINDINGS: The nasogastric tube is in the stomach. The proximal side port is just beyond the gastroeso phageal junction. Contrast from earlier CT partially opacifies the urinary tract. The lung bases are clear. IMPRESSION: 1. Nasogastric tube in the stomach. Reviewed, dictated and finalized at location B.
--- NOTE | ~2022-08-10 | XR_ITS ---
EXAMINATION: XR sm bowel follow through WS DATE: 08/10/2022 17:57 INDICATION: Small bowel obstruction. TECHNIQUE: Oral contrast was administered, and a time course of radiographs of the abdomen was obtain ed. Fluoroscopy of the small bowel was not performed. Fluoroscopy exposure time was 0 minutes. The to janine number of images was 7. COMPARISON: CT abdomen and pelvis 08/10/2022 FINDINGS: The nasogastric tube tip is in the stomach. There are multiple dilated loops of small bowel. The dist al small bowel is decompressed. Transit time from the stomach to proximal colon was approximately 4 h ours. IMPRESSION: 1. Small bowel obstruction. Reviewed, dictated and finalized at location A. IMPRESSION: 1. Small bowel obstruction.
--- NOTE | ~2022-08-10 | CT_ITS ---
EXAMINATION: CT abdomen pelvis w con INDICATION: Abdominal pain TECHNIQUE: Computed tomographic images of the abdomen and pelvis were obtained after the administrati on of 100 cc of Omnipaque 350 intravenous contrast. The dose-length product (DLP) was 306.55 mGy-cm. Automated exposure control and iterative reconstruction technique were employed. COMPARISON: 06/22/2020 FINDINGS: There is a small, chronic left pneumothorax which appears stable. Minimal dependent atelect asis is present in the lung bases. The heart size is normal. Cysts of the liver measure up to 3.3 cm in the right hepatic lobe. The liver is diffusely low in attenuation when compared with the spleen, c onsistent with hepatic steatosis. Punctate calcifications in an otherwise normal spleen likely repres ent healed granulomatous disease. The pancreas, gallbladder, and adrenal glands are normal. Cysts of the kidneys measure up to 11 mm on the right. Peripelvic cysts are noted in the kidneys. There is lavonne cified atherosclerosis of the aorta and many of the other arteries. No pathologically enlarged abdomi nal or pelvic lymph nodes are identified. There are multiple dilated loops of small bowel in the mida bdomen and pelvis. There appears to be a transition point in the pelvis beyond which the small bowel is decompressed. Some gas and stool are seen in the colon. No free intraperitoneal gas is identified. There is severe lumbar spondylosis at L5-S1. IMPRESSION: 1. Small bowel obstruction. Reviewed, dictated and finalized at location B. IMPRESSION: 1. Small bowel obstruction.
--- NOTE | 2022-08-10 08:18 | ECG_ITS ---
Measurements Intervals Gravity Rate: 63 P: 53 SC: 170 QRS: 23 QRSD: 83 T: 39 QT: 404 QTc: 414 Interpretive Statements SINUS RHYTHM SEPTAL MYOCARDIAL INFARCTION , PROBABLY OLD [40+ ms Q WAVE IN V1/V2] ABNORMAL ECG COMPARED TO ECG 06/24/2020 07:29:13 NO SIGNIFICANT CHANGES Electronically Signed On 08-10-2022 14:56:20 CDT by Jorje Sanchez M.D.
[2022-08-10 08:20] VITALS: BP 148/68; PULSE 73; RESP 16; TEMP 36.3; O2SAT 99
[2022-08-10 08:30] VITALS: BP 136/58; PULSE 63; RESP 18; O2SAT 98
[2022-08-10 08:33] LABS: Basophils Absolute Auto 0.1 K/mm3 (0.0-0.1); Basophils Percent Auto 0.5 % (0.2-1.2); Eosinophils Percent Auto 0.1 % (0-4.4); Hematocrit 40.6 % (37.0-47.0); Hemoglobin 13.8 g/dL (12.0-15.0); Immature Granulocyte Absolute 0.11 K/mm3 (0.00-0.031); Immature Granulocyte Percent A 0.6 % (0-0.5); Lymphocytes Absolute Auto 1.29 K/mm3 (0.9-3.2); Lymphocytes Percent Auto 7.6 % (18.3-44.2); Mean Corpuscular Hemoglobin 33.8 pg (26-34); Mean Corpuscular Volume 99.5 fl (80-100); Mean Platelet Volume 9.7 fl (7.4-10.4); Monocytes Absolute Auto 1.4 K/mm3 (0.1-0.6); Neutrophils Absolute Auto 14.1 K/mm3 (1.3-6.7); Neutrophils Percent Auto 83.2 % (45.5-73.1); Nucleated Red Blood Cells Perc 0.2 % (0.0-0.2); Platelet Count Result 353 k/mm3 (150-375); Red Blood Count 4.08 M/mm3 (4.2-5.4); Red Cell Distribution Width 16.3 % (11.5-14.5); White Blood Count 16.9 K/mm3 (4.5-10.0)
[2022-08-10 08:44] LABS: Lactic Acid Reflex 2.4 mmol/L (0.7-2.0)
[2022-08-10 08:45] LABS: Alanine Aminotransferase 22 U/L (6-35); Albumin Level 4.9 g/dL (3.5-5.1); Alkaline Phosphatase 88 U/L (38-126); Anion Gap 10 mmol/L (8-16); Aspartate Amino Transferase 26 U/L (14-36); Bilirubin,Total 1.1 mg/dL (0.2-1.3); Blood Urea Nitrogen 18 mg/dL (7-17); Calcium 10.1 mg/dL (8.4-10.2); Carbon Dioxide 23 mmol/L (22-30); Chloride 103 mmol/L (98-107); Estimated CRCL calculation 41 ml/min; Estimated Glomerular Filt Rate > 60; Glucose 139 mg/dL (65-110); Lipase 49 U/L (23-300); Potassium 3.8 mmol/L (3.4-5.0); Sodium 136 mmol/L (137-145)
[2022-08-10] MEDS: SODIUM CHLORIDE 0.9% IV 1,000 ML 999 ML IV CONT (08:47)
--- NOTE | 2022-08-10 08:59 | ED.ABDPAIN ---
HPI - Abdominal Pain General Chief Complaint: Abdominal Pain Stated Complaint: abd pain Time Seen by Provider: 08/10/22 08:18 Source: patient and RN notes reviewed Mode of arrival: ambulatory Limitations: no limitations History of Present Illness HPI narrative: 82 years old white female drove herself to the emergency room complaining of abdominal pain started last night, constant, no radiation, associated with nausea, last bowel movement 2 hours prior to arrival to the emergency room. History of similar symptoms secondary to small bowel obstruction. History of appendectomy, hysterectomy and hernia repair. Patient not on any antiplatelet or anticoagulant medication Related Data Home Medications Medication Instructions Recorded Confirmed pravastatin 20 mg tablet 20 mg PO DAILY 06/22/20 08/08/22 irbesartan 300 1 tablet PO DAILY 08/08/22 08/08/22 mg-hydrochlorothiazide 12.5 mg tablet metoprolol tartrate 50 mg tablet 50 mg PO BID 08/08/22 08/08/22 Allergies Allergy/AdvReac Type Severity Reaction Status Date / Time No Known Allergies Allergy Verified 08/08/22 09:44 Review of Systems Review of Systems: All systems reviewed & are unremarkable except as noted in HPI and below PMFSH Past Medical History Medical History (Updated 08/10/22 @ 09:40 by Brooke Sow MD) Anxiety Arthritis Hypertension Other and unspecified hyperlipidemia Pneumothorax chronic left apical pneumothorax since 06/21/2018, small right pleural effusion Surgical History Surgical History History of appendectomy History of back surgery 2 surgeries History of hysterectomy Family History Family History Father Mesothelioma Mother Cerebrovascular accident Social History Social History Smoking status: Never smoker Alcohol intake: never Substance use: never Gender identity (if verbalized by the patient): Female Spiritual care concerns: No Exam Narrative: General appearance: Well-developed, well-nourished Skin: Normal color Head: Normocephalic, nontraumatic Eyes: Clear conjunctiva ENT: Oropharynx normal, ears normal, nose normal Neck: Supple, nontender Chest and respiratory: Airway patent, no respiratory distress, no accessory muscle use Heart: Regular rate/rhythm Abdomen: Soft, diffuse tenderness, no organomegaly, quiet bowel sounds Vascular: Normal peripheral pulses, normal capillary refill. Musculoskeletal: Normal range of motion, nontender back Neurologic: Alert and oriented ?3, [employer] is normal as tested, no gross motor deficit Course Consultations Consultation #1: Dr. Christensen Date: 08/10/22 Time: 09:39 Vital Signs Vital signs: Vital Signs Temperature 36.3 C L 08/10/22 08:20 Pulse Rate 73 08/10/22 08:20 Respiratory Rate 16 08/10/22 08:20 Blood Pressure 148/68 H 08/10/22 08:20 Pulse Oximetry 99 08/10/22 08:20 Oxygen Delivery Room Air 08/10/22 08:20 Temperature 36.3 C L 08/10/22 08:20 Pulse Rate 73 08/10/22 08:20 Respiratory Rate 16 08/10/22 08:20 Blood Pressure 148/68 H 08/10/22 08:20 Pulse Oximetry 99 08/10/22 08:20 Oxygen Delivery Room Air 08/10/22 08:20 MDM - Abdominal Pain Differential Diagnosis Differential diagnosis: Likely abdominal pain, acute appendicitis, calculus of kidney, constipation, diverticulitis and small bowel obstruction Lab Data Result diagrams: 08/10/22 08:27 08/10/22 08:27 Labs: Lab Results 08/10/22 08/10/22 08/10/22 Range/Units 08:27 08:27 08:27 WBC 16.9 H (4.5-1
[2022-08-10] MEDS: HYDROmorphone HCL INJ (*CRX) 1 MG/ML SYR 0.5 MG IV PUSH (09:15)
[2022-08-10] MEDS: ONDANSETRON INJ 4 MG/2 ML VIAL IV PUSH ×2 (09:15→14:33)
[2022-08-10 10:25] LABS: Add Urine Microscopic? YES; Appearance Urine Clear (Clear); Bilirubin Urine Negative (Negative); Blood Urine Negative (Negative); Color Urine Yellow (Yellow); Glucose Urine UA Negative (Negative); Ketones Urine Negative (Negative); Leukocyte Esterase Ur Trace LEU/UL (Negative); Mucus Urine Rare /lpf; Nitrate Urine Negative (Negative); Protein Urine Negative (Negative); RBC Urine 0-2 /hpf (0-2); Squamous Epithelial Cell Urine Occasional /hpf (Few); Urobilinogen Urine Negative mg/dL (<2.0); WBC Urine 0-3 /hpf
[2022-08-10 10:33] LABS: SARS-CoV-2 RNA PCR Negative
[2022-08-10 10:34] LABS: Specific Grav Ur > 1.060 (1.001-1.035)
--- NOTE | 2022-08-10 10:37 | PC.NURSE ---
NG tube placed using Lidocaine jelly for comfort. Immediate return of 200 ml green colored fluid.
[2022-08-10 11:22] VITALS: BP 129/72; PULSE 66; RESP 20; TEMP 37.1; O2SAT 100
[2022-08-10 11:31] LABS: Reflex Lactic Acid Yes or No Add Lactic
[2022-08-10 12:17] LABS: Lactic Acid 2.1 mmol/L (0.7-2.0)
[2022-08-10] MEDS: LACTATED RINGERS 1,000 ML 150 ML IV CONT ×2 (12:44→20:46)
[2022-08-10 12:50] VITALS: BMI 22.9
--- NOTE | 2022-08-10 13:01 | PM.CNGS ---
Assessment and Plan Assessment and plan (1) Small bowel obstruction: Code(s): K56.609 - Unspecified intestinal obstruction, unspecified as to partial versus complete obstruction Status: Acute Assessment and Plan: will setup for SBS, exam benign, cont conservative mgmt c bowel rest, NG decompression History of Present Illness Consult details Consult date: 08/10/22 Reason for consult: abdominal pain Requesting physician: Brooke Sow MD Narrative: The pt is an 82 y/o F c h/o multiple abd surgeries presenting to ED c/o 1 d h/o crampy abd pain assoc c nausea, bloating. Pt has had h/o SBO in the past and reports similar symptomatology. Pt last had episode about 2 yrs ago requiring ex lap, SAMMY. Pt report some mild intermittent episodes over last 2 yrs but none requiring hospital visit. Review of Systems Constitutional: Constitutional: Reports as per HPI, Reports anorexia, Denies chills, Denies fatigue, Denies fever(s), Denies increased appetite, Denies lethargy, Denies malaise, Reports poor appetite, Denies weakness, Denies weight gain and Denies weight loss Eyes: Eyes: Reports no additional eye complaints ENT: Reports system reviewed and no additional complaints, except as documented Cardiovascular: Cardiovascular: Reports no additional cardiovascular complaints Respiratory: Respiratory: Reports no additional respiratory complaints Gastrointestinal: Gastrointestinal: Reports as per HPI, Reports abdominal pain, Reports bloating, Reports GI cramping, Reports early satiety, Reports dyspepsia, Reports nausea, Denies vomiting and Denies hematemesis Genitourinary: Genitourinary: Reports no additional female genitourinary complaints Musculoskeletal: Musculoskeletal: Reports no additional musculoskeletal complaints Integumentary/Breasts: Skin/Breast: Reports system reviewed and no additional complaints, except as docu Neurologic: Reports system reviewed and no additional complaints, except as documented Psychiatric: Psychiatric: Reports no additional psychiatric complaints Endocrine: Endocrine: Reports no additional endocrine complaints Hematologic/Lymphatic: Hematologic/Lymphatic: Reports no additional hematologic/lymphatic complaints Allergic/Immunologic: Allergic/Immunologic: Reports no additional allergic/immunologic complaints PMFSH Past Medical History Medical History Anxiety Arthritis Hypertension Other and unspecified hyperlipidemia Pneumothorax chronic left apical pneumothorax since 06/21/2018, small right pleural effusion Surgical History Surgical History History of appendectomy History of back surgery 2 surgeries History of hysterectomy Family History Family History Father Mesothelioma Mother Cerebrovascular accident Social History Social History Smoking status: Never smoker Alcohol intake: former Substance use: never Gender identity (if verbalized by the patient): Female Spiritual care concerns: No Has the Lack of Transportation Kept You From Medical Appointments or From Getting Medications?: No Within the Past 12 Months, Were You Worried Whether Your Food Would Run Out Before You Got Money to Buy More?: Never True What is Your Housing Situation Today?: I Have Housing Are You Worried That in the Next 2 Months, You May Not Have Your Own Housing to Live In?: No Do You Have Trouble Paying Your Heating Or Electricity Bill?: No Do You Have Trouble Paying For Medicines?: No Are You Currently Unemployed and Looking for Work?: No Highest Level of Education Completed: High School Diploma/GED Do You Have Trouble With Childcare or the Care of a Family Member?: No Meds Home Medications and Allergies Home Medications Medication Instructions Recorded
[2022-08-10 13:59] VITALS: BP 140/59; PULSE 69; RESP 18; TEMP 37; O2SAT 99
--- NOTE | 2022-08-10 15:35 | PM.IMHP ---
H&P: HPI History of Present Illness Date/Time: 08/10/22 15:35 Chief Complaint: Abdominal pain Narrative: 82 years old white female who presents to the ED with abdominal pain that started last night. Constant associated with nausea. She had a bowel movement earlier today. Has not had any flat us or bowel movement since abdomen distension reported. She also had gone up prior to arrival to the ED. she had history of obstruction she needed explored laparotomy with adhesiolysis back in 1999 she denies any other complaints. No fever chills. no chest pain or shortness of breath. CT abdomen and pelvis showed a station. NG was placed feeling better she denies any pain currently. large amount of NG output noted. Review of Systems Review of Systems: - CONSTITUTIONAL: Denies weight loss, fever and chills. - HEENT: Denies changes in vision and hearing - RESPIRATORY: Denies SOB and cough. - CV: Denies palpitations and CP. - GI: Denies abdominal pain, nausea, vomiting and diarrhea. - : Denies dysuria and urinary frequency. - MSK: Denies myalgia and joint pain. - SKIN: Denies rash and pruritus. - NEUROLOGICAL: Denies headache and syncope. - PSYCHIATRIC: Denies recent changes in mood. Denies anxiety and depression. [facility] Past Medical History Medical History Anxiety Arthritis Hypertension Other and unspecified hyperlipidemia Pneumothorax chronic left apical pneumothorax since 06/21/2018, small right pleural effusion Surgical History Surgical History History of appendectomy History of back surgery 2 surgeries History of hysterectomy Family History Family History Father Mesothelioma Mother Cerebrovascular accident Social History Social History Smoking status: Never smoker Alcohol intake: former Substance use: never Gender identity (if verbalized by the patient): Female Spiritual care concerns: No Has the Lack of Transportation Kept You From Medical Appointments or From Getting Medications?: No Within the Past 12 Months, Were You Worried Whether Your Food Would Run Out Before You Got Money to Buy More?: Never True What is Your Housing Situation Today?: I Have Housing Are You Worried That in the Next 2 Months, You May Not Have Your Own Housing to Live In?: No Do You Have Trouble Paying Your Heating Or Electricity Bill?: No Do You Have Trouble Paying For Medicines?: No Are You Currently Unemployed and Looking for Work?: No Highest Level of Education Completed: High School Diploma/GED Do You Have Trouble With Childcare or the Care of a Family Member?: No Meds Home Medications and Allergies Home Medications Medication Instructions Recorded Confirmed Type pravastatin 20 mg tablet 20 mg PO DAILY 06/22/20 08/10/22 History amlodipine 5 mg tablet 5 mg PO .COMPLEX #135 tabs 08/08/22 08/10/22 Rx hydroxyzine HCl 25 mg tablet 25 mg PO TID PRN anxiety #90 tabs 08/08/22 08/10/22 Rx irbesartan 300 1 tablet PO DAILY 08/08/22 08/10/22 History mg-hydrochlorothiazide 12.5 mg tablet metoprolol tartrate 50 mg tablet 50 mg PO BID 08/08/22 08/10/22 History cholecalciferol (vitamin D3) 50 2,000 unit PO DAILY 08/10/22 08/10/22 History mcg (2,000 unit) capsule risedronate 150 mg tablet 150 mg PO MONTHLY 08/10/22 08/10/22 History Allergies Allergy/AdvReac Type Severity Reaction Status Date / Time No Known Allergies Allergy Verified 08/08/22 09:44 Vital Signs Vital Signs - 24 hr 08/10/22 08:20 08/10/22 08:30 08/10/22 11:22 Temperature 97.3 F L 98.7 F Pulse Rate 73 63 66 Respiratory Rate 16 18 20 Blood Pressure 148/68 H 136/58 L 129/72 Pulse Oximetry 99 98 100 Oxygen Delivery Room Air 08/10/22 13:59 Temperature 98.6 F Pulse Rate 69 Respiratory Rate
[2022-08-10 19:19] VITALS: BP 126/97; PULSE 84; RESP 18; TEMP 37.1; O2SAT 97
[2022-08-11 04:04] VITALS: BP 143/53; PULSE 70; RESP 20; TEMP 36.5; O2SAT 93
[2022-08-11 06:18] LABS: Basophils Percent Auto 0.5 % (0.2-1.2); Eosinophils Percent Auto 0.5 % (0-4.4); Hematocrit 31.5 % (37.0-47.0); Hemoglobin 10.6 g/dL (12.0-15.0); Immature Granulocyte Absolute 0.05 K/mm3 (0.00-0.031); Immature Granulocyte Percent A 0.6 % (0-0.5); Lymphocytes Absolute Auto 1.66 K/mm3 (0.9-3.2); Lymphocytes Percent Auto 20.4 % (18.3-44.2); Mean Corpuscular HGB Conc 33.7 g/dl (32-36); Mean Platelet Volume 9.8 fl (7.4-10.4); Monocytes Absolute Auto 0.8 K/mm3 (0.1-0.6); Monocytes Percent Auto 9.8 % (2.6-8.5); Neutrophils Absolute Auto 5.6 K/mm3 (1.3-6.7); Neutrophils Percent Auto 68.2 % (45.5-73.1); Platelet Count Result 273 k/mm3 (150-375); Red Blood Count 3.12 M/mm3 (4.2-5.4); Red Cell Distribution Width 17.2 % (11.5-14.5); White Blood Count 8.2 K/mm3 (4.5-10.0)
[2022-08-11] MEDS: LACTATED RINGERS 1,000 ML 150 ML IV CONT (06:27)
[2022-08-11 06:31] LABS: Alanine Aminotransferase 14 U/L (6-35); Albumin Level 3.3 g/dL (3.5-5.1); Alkaline Phosphatase 57 U/L (38-126); Anion Gap 9 mmol/L (8-16); Aspartate Amino Transferase 22 U/L (14-36); Bilirubin,Total 0.9 mg/dL (0.2-1.3); Blood Urea Nitrogen 15 mg/dL (7-17); Calcium 8.6 mg/dL (8.4-10.2); Carbon Dioxide 28 mmol/L (22-30); Chloride 106 mmol/L (98-107); Estimated CRCL calculation 46 ml/min; Estimated Glomerular Filt Rate > 60; Glucose 108 mg/dL (65-110); Magnesium 1.9 mg/dL (1.6-2.3); Potassium 3.5 mmol/L (3.4-5.0); Sodium 143 mmol/L (137-145)
[2022-08-11] MEDS: PRAVASTATIN SODIUM 20 MG TABLET PO (08:42)
[2022-08-11] MEDS: LACTATED RINGERS 1,000 ML 75 ML IV CONT (10:57)
[2022-08-11 14:00] VITALS: BP 144/64; PULSE 85; RESP 16; TEMP 37.2; O2SAT 92
--- NOTE | 2022-08-11 14:06 | PM.PNGS ---
Progress Note: A&P Assessment and Plan (1) Small bowel obstruction: Code(s): K56.609 - Unspecified intestinal obstruction, unspecified as to partial versus complete obstruction Status: Acute Assessment and Plan: exam benign, await bowel fxn, cont NG decompression, bowel rest, serial exams for now, recheck AXR in am Subjective Subjective Date/Time Seen: 08/11/22 14:06 feels ok, no further abd pain or nausea, still no flatus, BM Review of Systems Review of Systems: All systems reviewed & are unremarkable except as noted in HPI and below Exam Const: General: cooperative, comfortable and no acute distress Resp: Effort & Inspection: normal respiratory effort Auscultation: clear to auscultation bilaterally Cardio: Rate: regular rate Rhythm: regular rhythm GI: Inspection: normal to inspection and non-distended GI Palp: No abdominal tenderness, Yes Soft to palpation, No Tenderness to palpation present (GI), No Guarding due to palpation present (GI) and No Rigid due to palpation Objective Data Vital Signs Vital Signs: Vital Signs - 24 hr 08/10/22 19:19 08/11/22 04:04 08/11/22 08:00 Temperature 37.1 C 36.5 C Pulse Rate 84 70 Respiratory Rate 18 20 Blood Pressure 126/97 H 143/53 H Pulse Oximetry 97 93 Oxygen Delivery Room Air Intake/Output Intake/Output: Intake & Output 08/08/22 08/09/22 08/10/22 08/11/22 23:59 23:59 23:59 23:59 Intake Total 1999 1999 Output Total 500 Balance 1999 1500 Meds/Results Medications: Active Medications Generic Name Dose Route Start Last Admin Trade Name Freq PRN Reason Stop Dose Admin Amlodipine Besylate 5 mg 08/11/22 09:00 Amlodipine Besylate 5 Mg Tablet PO DAILY JOZEF Amlodipine Besylate 2.5 mg 08/10/22 21:00 Amlodipine Besylate 2.5 Mg Tablet PO HS JOZEF Hydromorphone HCl 0.5 mg 08/10/22 09:40 Hydromorphone Hcl Inj (*Crx) 1 Mg/Ml Syr IV PUSH Q4H PRN Pain Rated 7-10 Lactated Ringer's 1,000 mls @ 75 mls/hr 08/10/22 09:40 08/11/22 10:57 Lr - Lactated Ringers Iv IV CONT 75 mls/hr .[id number] JOZEF Administration Metoprolol Tartrate 50 mg 08/10/22 21:00 Metoprolol Tartrate 50 Mg Tab PO Q12HR JOZEF Ondansetron HCl 4 mg 08/10/22 09:40 08/10/22 14:33 Ondansetron Inj 4 Mg/2 Ml Vial IV PUSH 4 mg Q4H PRN Administration Nausea Pravastatin Sodium 20 mg 08/11/22 09:00 08/11/22 08:42 Pravastatin Sodium 20 Mg Tablet PO 20 mg DAILY JOZEF Administration Radiology Results: ITS Impressions Abdomen/Pelvis CT 08/10/22 09:17 IMPRESSION: 1. Small bowel obstruction. ADDENDUM: 08/10/22 0948 Second impression point should be: 2. Small, chronic left pneumothorax which appears stable. Abdomen X-Ray 08/10/22 10:42 IMPRESSION: 1. Nasogastric tube in the stomach. Small Bowel X-Ray 08/10/22 18:12 IMPRESSION: 1. Small bowel obstruction. Labs Labs: Laboratory Results - last 24 hr 08/11/22 08/11/22 06:02 06:02 WBC 8.2 RBC 3.12 L Hgb 10.6 L D Hct 31.5 L MCV 101.0 H MCH 34.0 MCHC 33.7 RDW 17.2 H Plt Count 273 MPV 9.8 Immature Gran % (Auto) 0.6 H Neut % (Auto) 68.2 Lymph % (Auto) 20.4 [place] % (Auto) 9.8 H Eos % (Auto) 0.5 Baso % (Auto) 0.5 Lymph # (Auto) 1.66 [place] # (Auto) 0.8 H Eos # (Auto) 0.0 Baso # (Auto) 0.0 Abs Immat Gran (auto) 0.05 H Absolute Neuts (auto) 5.6 Absolute Nucleated RBC 0.0 Nucleated RBC % 0.0 Sodium 143 Potassium 3.5 Chloride 106 Carbon Dioxide 28 Anion Gap 9 BUN 15 Creatinine 0.70 Estim Creat Clear Calc 46 Estimated GFR > 60 Glucose 108 Calcium 8.6 Magnesium 1.9 Total Bilirubin 0.9 AST 22 ALT 14 Alkaline Phosphatase 57 Total Protein 6.0 L Albumin 3.3 L
--- NOTE | 2022-08-11 15:34 | PM.IMPN ---
Progress Note: A&P Assessment and Plan (1) Small bowel obstruction: Code(s): K56.609 - Unspecified intestinal obstruction, unspecified as to partial versus complete obstruction Status: Acute Assessment and Plan: patient with history of SBO s/p adhesiolysis presented with abdominal pain and nausea CT on presentation showed small bowel obstruction appreciate general surgery consultation continue NG decompression. significant output from NG NPO diet. Continue gentle IV fluids small-bowel follow-through was consistent with small-bowel obstruction continue to monitor With serial abdominal exams. Recheck KUB tomorrow morning supportive care. Analgesics and antiemetics available as needed (2) Hypertension: Qualifiers: Hypertension type: essential hypertension Qualified Code(s): I10 - Essential (primary) hypertension Code(s): I10 - Essential (primary) hypertension Status: Chronic Assessment and Plan: blood pressure reviewed and has been reasonably controlled. Last BP 144/64 p.o. antihypertensives on hold while NPO IV hydralazine with parameters as needed for hypertension while NPO (3) Pneumothorax: Qualifiers: Pneumothorax type: unspecified pneumothorax Qualified Code(s): J93.9 - Pneumothorax, unspecified Code(s): J93.9 - Pneumothorax, unspecified Status: Chronic Assessment and Plan: CT of the abdomen/ pelvis demonstrates small chronic left pneumothorax which appears stable patient maintaining adequate O2 sats on room air no acute issues monitor respiratory status Subjective Date/time seen: 08/11/22 15:34 Interval history: date of service: 08/11/2022 Balbina Lopez is an 82-year-old female with a history of small-bowel obstruction s/p adhesiolysis in June 2020, chronic pneumothorax, hypertension, anxiety, and arthritis who is seen in follow-up for small bowel obstruction. She is feeling very well today. She denies abdominal pain, cramping, or bloating. No nausea or vomiting. She endorses belching. She is not passing flatus or had any bowel movements. She does endorse sore throat secondary to NG tube. Denies fevers or chills. She has been able to get up and ambulate to the bathroom without difficulty. Denies urinary symptoms. Denies dizziness, lightheadedness, weakness. Review of Systems Review of Systems: All systems reviewed & are unremarkable except as noted in HPI and below Exam Narrative: General: Well-nourished, well-appearing 82-year-old female, sitting up in bed, comfortable, NARD Neuro: awake, alert and oriented x4, speech clear, no focal neuro deficits noted HEENMT: normocephalic, atraumatic, EOMI, sclerae anicteric, moist oral mucosa Respiratory: clear to auscultation bilaterally, nonlabored breathing Cardio: regular rate, regular rhythm with S1-S2 Abdomen: nondistended, normoactive bowel sounds, soft, midline surgical incision scar noted, nontender to palpation Extremities: no edema, erythema, or tenderness to palpation, DP pulses 2+ bilaterally Skin: no rashes or lesions, warm and dry Psych: appropriate mood and affect, judgment and insight intact Objective Data Vital Signs Vital Signs: Vital Signs - 24 hr 08/10/22 19:19 08/11/22 04:04 08/11/22 08:00 Temperature 98.8 F 97.7 F Pulse Rate 84 70 Respiratory Rate 18 20 Blood Pressure 126/97 H 143/53 H Pulse Oximetry 97 93 Oxygen Delivery Room Air 08/11/22 14:00 Temperature 99.0 F Pulse Rate 85 Respiratory Rate 16 Blood Pressure 144/64 H Pulse Oximetry 92 Oxygen Delivery Intake/Output Intake/Output: Intake & Output 08/08/22 08/09/22 08/10/22 08/11/22 23:59 23:59 23:59 23:59 Intake Total 1999 1999 Output Total 500 Balance 1999 1499 Meds/Results Medications: Active Medications Generic Name Dose Route Start Last Admin Trade Name Freq PRN Reason Stop Dose Admin Amlo
[2022-08-11 20:00] VITALS: PULSE 77; RESP 18; O2SAT 96
[2022-08-11 21:19] VITALS: BP 154/59; PULSE 77; RESP 18; TEMP 36.7; O2SAT 96
[2022-08-12 06:00] VITALS: BP 154/57; PULSE 79; RESP 18; TEMP 36.4; O2SAT 96
[2022-08-12 06:23] LABS: Hematocrit 34.1 % (37.0-47.0); Hemoglobin 11.4 g/dL (12.0-15.0); Mean Corpuscular HGB Conc 33.4 g/dl (32-36); Mean Corpuscular Hemoglobin 34.1 pg (26-34); Mean Corpuscular Volume 102.1 fl (80-100); Mean Platelet Volume 9.6 fl (7.4-10.4); Platelet Count Result 282 k/mm3 (150-375); Red Blood Count 3.34 M/mm3 (4.2-5.4); Red Cell Distribution Width 16.6 % (11.5-14.5); White Blood Count 7.2 K/mm3 (4.5-10.0)
[2022-08-12 06:39] LABS: Anion Gap 12 mmol/L (8-16); Blood Urea Nitrogen 14 mg/dL (7-17); Calcium 8.6 mg/dL (8.4-10.2); Carbon Dioxide 25 mmol/L (22-30); Chloride 104 mmol/L (98-107); Estimated CRCL calculation 62 ml/min; Estimated Glomerular Filt Rate > 60; Glucose 104 mg/dL (65-110); Potassium 3.9 mmol/L (3.4-5.0); Sodium 141 mmol/L (137-145)
[2022-08-12] MEDS: PRAVASTATIN SODIUM 20 MG TABLET PO (08:20)
--- NOTE | 2022-08-12 09:22 | PM.PNGS ---
Progress Note: A&P Assessment and Plan (1) Small bowel obstruction: Code(s): K56.609 - Unspecified intestinal obstruction, unspecified as to partial versus complete obstruction Status: Acute Assessment and Plan: Improving but still no bowel sounds and only some flatus. Continue NG tube, IV fluids, NPO except ice chips. Ambulate. Possibly DC NG tomorrow. (2) GI (gastrointestinal bleed): Code(s): K92.2 - Gastrointestinal hemorrhage, unspecified Status: Acute Assessment and Plan: Old blood in NG tube and in canister. No decrease in H&H. Will start IV Protonix q.12 hours. Probably just from the NG tube and will resolve without endoscopy or other intervention. Subjective Subjective Date/Time Seen: 08/12/22 09:22 Patient reports: no new complaints, feels better, flatus and no bowel movement Review of Systems Review of Systems: All systems reviewed & are unremarkable except as noted in HPI and below (HPI and those items noted below) Constitutional: Constitutional: Denies chills and Denies fever(s) Cardiovascular: Cardiovascular: Denies chest pain, Denies diaphoresis, Denies dyspnea and Denies paroxysmal nocturnal dyspnea Respiratory: Respiratory: Denies chest congestion, Denies cough and Denies dyspnea Integumentary/Breasts: Skin/Breast: Denies lesions and Denies rash Exam Const: General: comfortable and no acute distress; No confusion Orientation/consciousness: patient oriented x3 and No confusion GI: Inspection: normal to inspection, no edema, non-distended, scar and other (NG output in canister and in tube is old dark blood) GI Palp: Yes Soft to palpation, Yes Tenderness to palpation present (GI) (Still some tenderness and fullness lower abdomen), No Guarding due to palpation present (GI) and No Rebound tenderness present Auscultation: absent bowel sounds Neuro: General: patient oriented x3, no focal motor deficits and No confusion Extrem: General: no calf tenderness and no edema Psych: Affect: normal affect Insight: Good insight present (Psych) Judgement: Good judgement present (Psych) Objective Data Vital Signs Vital Signs: Vital Signs - 24 hr 08/11/22 14:00 08/11/22 21:19 08/11/22 20:00 Temperature 37.2 C 36.7 C Pulse Rate 85 77 77 Respiratory Rate 16 18 18 Blood Pressure 144/64 H 154/59 H Pulse Oximetry 92 96 96 Oxygen Delivery Room Air 08/12/22 06:00 Temperature 36.4 C Pulse Rate 79 Respiratory Rate 18 Blood Pressure 154/57 H Pulse Oximetry 96 Oxygen Delivery Intake/Output Intake/Output: Intake & Output 08/09/22 08/10/22 08/11/22 08/12/22 23:59 23:59 23:59 23:59 Intake Total 1999 1999 Output Total 500 Balance 1999 1500 Meds/Results Medications: Active Medications Generic Name Dose Route Start Last Admin Trade Name Freq PRN Reason Stop Dose Admin Amlodipine Besylate 5 mg 08/11/22 09:00 Amlodipine Besylate 5 Mg Tablet PO DAILY JOZEF Amlodipine Besylate 2.5 mg 08/10/22 21:00 Amlodipine Besylate 2.5 Mg Tablet PO HS JOZEF Hydralazine HCl 10 mg 08/11/22 15:45 Hydralazine Hcl 20 Mg/Ml Vial IV PUSH Q8H PRN Systolic BP >170 Hydromorphone HCl 0.5 mg 08/10/22 09:40 Hydromorphone Hcl Inj (*Crx) 1 Mg/Ml Syr IV PUSH Q4H PRN Pain Rated 7-10 Lactated Ringer's 1,000 mls @ 75 mls/hr 08/10/22 09:40 08/12/22 08:20 Lr - Lactated Ringers Iv IV CONT Not Given .[id number] JOZEF Metoprolol Tartrate 50 mg 08/10/22 21:00 Metoprolol Tartrate 50 Mg Tab PO Q12HR JOZEF Ondansetron HCl 4 mg 08/10/22 09:40 08/10/22 14:33 Ondansetron Inj 4 Mg/2 Ml Vial IV PUSH 4 mg Q4H PRN Administration Nausea Pantoprazole Sodium 40 mg 08/12/22 21:00 Pantoprazole Sodium Iv 40 Mg Vial IV PUSH Q12HR JOZEF Pantoprazole Sodium 40 mg 08/12/22 10:00 Pantoprazole Sodium Iv 40 Mg Vial IV PUSH 08/12/22 10:01 ONCE ONE Pravastatin Sodium 20 mg 08/11/22 09:00
[2022-08-12] MEDS: PANTOPRAZOLE SODIUM IV 40 MG VIAL IV PUSH ×2 (10:35→23:57)
[2022-08-12] MEDS: ENOXAPARIN 40 MG/0.4 ML SYRINGE SUB-Q (10:37)
--- NOTE | 2022-08-12 12:32 | PM.IMPN ---
Progress Note: A&P Assessment and Plan (1) Small bowel obstruction: Code(s): K56.609 - Unspecified intestinal obstruction, unspecified as to partial versus complete obstruction Status: Acute Assessment and Plan: patient with history of SBO s/p adhesiolysis presented with abdominal pain and nausea CT on presentation showed small bowel obstruction appreciate general surgery consultation small-bowel follow-through on 08/10 was consistent with small-bowel obstruction abdominal x-ray today shows no evidence of obstruction continue NG decompression for now while awaiting increased bowel function. Pt is passing flatus NPO diet. Continue gentle IV fluids until diet is advanced continue to monitor with serial abdominal exams. supportive care. Analgesics and antiemetics available as needed blood noted in NG tube and canister earlier today, not evident on my evaluation. Continue protonix and monitor H&H (2) Hypertension: Qualifiers: Hypertension type: essential hypertension Qualified Code(s): I10 - Essential (primary) hypertension Code(s): I10 - Essential (primary) hypertension Status: Chronic Assessment and Plan: blood pressure reviewed and has been reasonably controlled. Last BP 154/57 p.o. antihypertensives on hold while NPO IV hydralazine with parameters as needed for hypertension while NPO (3) Pneumothorax: Qualifiers: Pneumothorax type: unspecified pneumothorax Qualified Code(s): J93.9 - Pneumothorax, unspecified Code(s): J93.9 - Pneumothorax, unspecified Status: Chronic Assessment and Plan: CT of the abdomen/ pelvis demonstrates small chronic left pneumothorax which appears stable patient maintaining adequate O2 sats on room air no acute issues monitor respiratory status Subjective Date/time seen: 08/12/22 12:32 Interval history: date of service: 08/12/2022 Balbina Lopez is an 82-year-old female with a history of small-bowel obstruction s/p adhesiolysis in June 2020, chronic pneumothorax, hypertension, anxiety, and arthritis who is seen in follow-up for small bowel obstruction. She feels pretty well today. She has no abdominal pain. She does endorse a mild bloating. No cramping. She is passing flatus, but no bowel movements. She has a sore throat secondary to the NG tube. Denies urinary symptoms. No shortness breath, cough, chest pain. She has no additional concerns. Review of Systems Review of Systems: All systems reviewed & are unremarkable except as noted in HPI and below Exam Narrative: General: Well-nourished, well-appearing 82-year-old female, sitting up in bed, comfortable, NARD Neuro: awake, alert and oriented x4, speech clear, no focal neuro deficits noted HEENMT: normocephalic, atraumatic, EOMI, sclerae anicteric, moist oral mucosa Respiratory: clear to auscultation bilaterally, nonlabored breathing Cardio: regular rate, regular rhythm with S1-S2 Abdomen: nondistended, normoactive bowel sounds, soft, nontender to palpation, NG tube with dark output Extremities: no edema, erythema, or tenderness to palpation, DP pulses 2+ bilaterally Skin: no rashes or lesions, warm and dry Psych: appropriate mood and affect, judgment and insight intact Objective Data Vital Signs Vital Signs: Vital Signs - 24 hr 08/11/22 14:00 08/11/22 21:19 08/11/22 20:00 Temperature 99.0 F 98.1 F Pulse Rate 85 77 77 Respiratory Rate 16 18 18 Blood Pressure 144/64 H 154/59 H Pulse Oximetry 92 96 96 Oxygen Delivery Room Air 08/12/22 06:00 08/12/22 08:00 Temperature 97.6 F Pulse Rate 79 Respiratory Rate 18 Blood Pressure 154/57 H Pulse Oximetry 96 Oxygen Delivery Room Air Intake/Output Intake/Output: Intake & Output 08/09/22 08/10/22 08/11/22 08/12/22 23:59 23:59 23:59 23:59 Intake Total 1999 1999 Output Total Balance 1999 1500 Meds/Results
[2022-08-12 14:00] VITALS: BP 156/67; PULSE 83; RESP 18; TEMP 37.4; O2SAT 96
[2022-08-12] MEDS: LACTATED RINGERS 1,000 ML 75 ML IV CONT (16:04)
[2022-08-12 16:22] VITALS: BP 162/80
[2022-08-12 21:49] VITALS: BP 172/73; PULSE 76; RESP 16; TEMP 36.9; O2SAT 97
[2022-08-13 06:00] VITALS: BP 157/131; PULSE 86; RESP 16; TEMP 36.8; O2SAT 97
[2022-08-13] MEDS: LACTATED RINGERS 1,000 ML 75 ML IV CONT (06:31)
[2022-08-13 06:46] LABS: Hematocrit 32.2 % (37.0-47.0); Hemoglobin 11.1 g/dL (12.0-15.0); Mean Corpuscular HGB Conc 34.5 g/dl (32-36); Mean Corpuscular Hemoglobin 34.9 pg (26-34); Mean Corpuscular Volume 101.3 fl (80-100); Mean Platelet Volume 10.1 fl (7.4-10.4); Platelet Count Result 275 k/mm3 (150-375); Red Blood Count 3.18 M/mm3 (4.2-5.4); Red Cell Distribution Width 16.2 % (11.5-14.5); White Blood Count 8.4 K/mm3 (4.5-10.0)
[2022-08-13 06:56] LABS: Anion Gap 13 mmol/L (8-16); Blood Urea Nitrogen 14 mg/dL (7-17); Calcium 8.6 mg/dL (8.4-10.2); Carbon Dioxide 23 mmol/L (22-30); Chloride 105 mmol/L (98-107); Estimated CRCL calculation 53 ml/min; Estimated Glomerular Filt Rate > 60; Glucose 90 mg/dL (65-110); Potassium 3.4 mmol/L (3.4-5.0); Sodium 141 mmol/L (137-145)
[2022-08-13 08:37] VITALS: BP 182/80
[2022-08-13] MEDS: ENOXAPARIN 40 MG/0.4 ML SYRINGE SUB-Q (09:02)
[2022-08-13] MEDS: PANTOPRAZOLE SODIUM IV 40 MG VIAL IV PUSH (09:02)
--- NOTE | 2022-08-13 10:09 | PM.PNGS ---
Progress Note: A&P Assessment and Plan (1) Small bowel obstruction: Code(s): K56.609 - Unspecified intestinal obstruction, unspecified as to partial versus complete obstruction Status: Acute Assessment and Plan: more bowel sounds today and abdominal exam improved. Will get water-soluble small bowel series. (2) GI (gastrointestinal bleed): Code(s): K92.2 - Gastrointestinal hemorrhage, unspecified Status: Acute Assessment and Plan: Still some blood in NG tube but output is less and H&H is low but stable. Continue IV Protonix for now. Subjective Subjective Date/Time Seen: 08/13/22 10:09 Patient reports: no new complaints, pain is less ( No pain), flatus and no bowel movement Review of Systems Review of Systems: All systems reviewed & are unremarkable except as noted in HPI and below ( HPI) Exam Const: General: comfortable and no acute distress; No confusion Orientation/consciousness: patient oriented x3 and No confusion GI: Inspection: normal to inspection and non-distended GI Palp: Yes Soft to palpation, No Tenderness to palpation present (GI), No Guarding due to palpation present (GI) and No Rebound tenderness present Auscultation: Hypoactive bowel sounds present Neuro: General: patient oriented x3, no focal motor deficits and No confusion Extrem: General: no calf tenderness and no edema Psych: Affect: normal affect Insight: Good insight present (Psych) Judgement: Good judgement present (Psych) Objective Data Vital Signs Vital Signs: Vital Signs - 24 hr 08/12/22 14:00 08/12/22 16:22 08/12/22 21:49 Temperature 37.4 C 36.9 C Pulse Rate 83 76 Respiratory Rate 18 16 Blood Pressure 156/67 H 162/80 H 172/73 H Pulse Oximetry 96 97 Oxygen Delivery 08/12/22 20:00 08/13/22 06:00 08/13/22 08:37 Temperature 36.8 C Pulse Rate 86 Respiratory Rate 16 Blood Pressure 157/131 H 182/80 H Pulse Oximetry 97 Oxygen Delivery Room Air Intake/Output Intake/Output: Intake & Output 08/10/22 08/11/22 08/12/22 08/13/22 23:59 23:59 23:59 23:59 Intake Total 1999 1999 1000 1000 Output Total 500 500 200 Balance 1999 1500 500 800 Meds/Results Medications: Active Medications Generic Name Dose Route Start Last Admin Trade Name Freq PRN Reason Stop Dose Admin Amlodipine Besylate 5 mg 08/11/22 09:00 Amlodipine Besylate 5 Mg Tablet PO DAILY [facility] Amlodipine Besylate 2.5 mg 08/10/22 21:00 Amlodipine Besylate 2.5 Mg Tablet PO HS [facility] Enoxaparin Sodium 40 mg 08/13/22 09:00 08/13/22 09:02 Enoxaparin 40 Mg/0.4 Ml Syringe SUB-Q 40 mg DAILY JOZEF Administration Hydralazine HCl 10 mg 08/11/22 15:45 Hydralazine Hcl 20 Mg/Ml Vial IV PUSH Q8H PRN Systolic BP >170 Hydromorphone HCl 0.5 mg 08/10/22 09:40 Hydromorphone Hcl Inj (*Crx) 1 Mg/Ml Syr IV PUSH Q4H PRN Pain Rated 7-10 Lactated Ringer's 1,000 mls @ 75 mls/hr 08/10/22 09:40 08/13/22 06:35 Lr - Lactated Ringers Iv IV CONT 0 mls/hr .[id number] [facility] Infusion Acetaminophen 1,000 mg in 100 mls @ 400 mls/hr 08/12/22 16:39 Ofirmev 1,000 Mg Ivpb IVPB 08/13/22 16:38 Q6H PRN Pain Rated 4-6 Metoprolol Tartrate 50 mg 08/10/22 21:00 Metoprolol Tartrate 50 Mg Tab PO Q12HR [facility] Ondansetron HCl 4 mg 08/10/22 09:40 08/10/22 14:33 Ondansetron Inj 4 Mg/2 Ml Vial IV PUSH 4 mg Q4H PRN Administration Nausea Pantoprazole Sodium 40 mg 08/12/22 21:00 08/13/22 09:02 Pantoprazole Sodium Iv 40 Mg Vial IV PUSH 40 mg Q12HR [facility] Administration Phenol 1 spray 08/12/22 12:33 Phenol/Sod Pheno [place] (*Bkc) MUCOUS MEM PRN PRN Sore Throat Pravastatin Sodium 20 mg 08/11/22 09:00 08/12/22 08:20 Pravastatin Sodium 20 Mg Tablet PO 20 mg DAILY JOZEF Administration Radiology Results: ITS Impressions Abdomen/Pelvis CT 08/10/22 09:17 IMPRESSION: 1. Small bowel obstruction.
--- NOTE | 2022-08-13 13:51 | PM.IMPN ---
Progress Note: A&P Assessment and Plan (1) Small bowel obstruction: Code(s): K56.609 - Unspecified intestinal obstruction, unspecified as to partial versus complete obstruction Status: Acute Assessment and Plan: patient with history of SBO s/p adhesiolysis presented with abdominal pain and nausea CT on presentation showed small bowel obstruction appreciate general surgery consultation abdominal x-ray today shows no evidence of obstruction Small-bowel follow-through today showed resolution of prior SBO with contrast extending to the colon through normal-appearing small bowel within 1 hour NG tube has been discontinued Clear liquid diet. Advance as tolerated per General surgery recommendations Continue with gentle IV fluids until better tolerating diet supportive care. Analgesics and antiemetics available as needed (2) Hypertension: Qualifiers: Hypertension type: essential hypertension Qualified Code(s): I10 - Essential (primary) hypertension Code(s): I10 - Essential (primary) hypertension Status: Chronic Assessment and Plan: blood pressure has been increasing likely as patient has been without p.o. meds. BP today 182/80 Will resume p.o. antihypertensives now that NG has been discontinued IV hydralazine with parameters as needed for hypertension while NPO (3) Pneumothorax: Qualifiers: Pneumothorax type: unspecified pneumothorax Qualified Code(s): J93.9 - Pneumothorax, unspecified Code(s): J93.9 - Pneumothorax, unspecified Status: Chronic Assessment and Plan: CT of the abdomen/ pelvis demonstrates small chronic left pneumothorax which appears stable patient maintaining adequate O2 sats on room air no acute issues monitor respiratory status Subjective Date/time seen: 08/13/22 13:51 Interval history: date of service: 08/12/2022 Balbina Lopez is an 82-year-old female with a history of small-bowel obstruction s/p adhesiolysis in June 2020, chronic pneumothorax, hypertension, anxiety, and arthritis who is seen in follow-up for small bowel obstruction. She feels okay today. She does endorse feeling somewhat weak. She was able to get up and walk to the bathroom independently. She has no abdominal pain, nausea, or vomiting. She had a mild headache yesterday but this has resolved. She denies dizziness or lightheadedness. Her throat is sore from the NG tube. She is very eager for this to be removed. Passing flatus but still no bowel movements . Review of Systems Review of Systems: All systems reviewed & are unremarkable except as noted in HPI and below Exam Narrative: General: Well-nourished, well-appearing 82-year-old female, sitting up in bed, comfortable, NARD Neuro: awake, alert and oriented x4, speech clear, no focal neuro deficits noted HEENMT: normocephalic, atraumatic, EOMI, sclerae anicteric Respiratory: clear to auscultation bilaterally, nonlabored breathing Cardio: regular rate, regular rhythm with S1-S2 Abdomen: nondistended, normoactive bowel sounds, soft, nontender to palpation, NG tube with dark output Extremities: no edema, erythema, or tenderness to palpation, DP pulses 2+ bilaterally Skin: no rashes or lesions, warm and dry Psych: appropriate mood and affect, judgment and insight intact Objective Data Vital Signs Vital Signs: Vital Signs - 24 hr 08/12/22 14:00 08/12/22 16:22 08/12/22 21:49 Temperature 99.3 F 98.4 F Pulse Rate 83 76 Respiratory Rate 18 16 Blood Pressure 156/67 H 162/80 H 172/73 H Pulse Oximetry 96 97 Oxygen Delivery 08/12/22 20:00 08/13/22 06:00 08/13/22 08:37 Temperature 98.3 F Pulse Rate 86 Respiratory Rate 16 Blood Pressure 157/131 H 182/80 H Pulse Oximetry 97 Oxygen Delivery Room Air 08/13/22 09:00 Temperature Pulse Rate Respiratory Rate Blood Pressure Pulse Oximetry Oxygen Delivery Room Air Intake
[2022-08-13 15:14] VITALS: BP 158/68
[2022-08-13 21:27] VITALS: PULSE 70
[2022-08-13] MEDS: METOPROLOL TARTRATE 50 MG TAB PO (21:27)
[2022-08-13] MEDS: amLODIPine BESYLATE 2.5 MG TABLET PO (21:27)
[2022-08-13 21:51] VITALS: BP 150/65; PULSE 60; RESP 20; TEMP 36.7; O2SAT 97
--- NOTE | 2022-08-13 22:21 | PC.NURSE ---
Pt reports having frequent urgent bouts of diarrhea throughout the day. Pt states that they are getting better and she is able to make it to the bathroom instead of the bedside commode. Pt is in bed now and resting comfortably. Pt has no complaints of pain and is compliant with plan of care. Will continue to monitor pt.
[2022-08-14 05:41] VITALS: BP 172/60; PULSE 58; RESP 20; TEMP 36.8; O2SAT 97
[2022-08-14 08:28] VITALS: PULSE 79
[2022-08-14] MEDS: METOPROLOL TARTRATE 50 MG TAB PO ×2 (08:28→21:08)
[2022-08-14] MEDS: ENOXAPARIN 40 MG/0.4 ML SYRINGE SUB-Q (08:28)
[2022-08-14] MEDS: IRBESARTAN 150 MG TABLET 300 MG PO (08:29)
[2022-08-14] MEDS: hydroCHLOROthiazide 12.5 MG CAPSULE PO (08:29)
[2022-08-14] MEDS: PANTOPRAZOLE 40 MG TABLET PO (08:29)
[2022-08-14 08:51] LABS: Hematocrit 34.3 % (37.0-47.0); Hemoglobin 11.6 g/dL (12.0-15.0); Mean Corpuscular HGB Conc 33.8 g/dl (32-36); Mean Corpuscular Hemoglobin 34.4 pg (26-34); Mean Corpuscular Volume 101.8 fl (80-100); Mean Platelet Volume 10.1 fl (7.4-10.4); Platelet Count Result 313 k/mm3 (150-375); Red Blood Count 3.37 M/mm3 (4.2-5.4); Red Cell Distribution Width 16.4 % (11.5-14.5); White Blood Count 5.6 K/mm3 (4.5-10.0)
[2022-08-14 09:00] LABS: Anion Gap 9 mmol/L (8-16); Blood Urea Nitrogen 18 mg/dL (7-17); Calcium 9.2 mg/dL (8.4-10.2); Carbon Dioxide 26 mmol/L (22-30); Chloride 104 mmol/L (98-107); Estimated CRCL calculation 53 ml/min; Estimated Glomerular Filt Rate > 60; Glucose 108 mg/dL (65-110); Sodium 139 mmol/L (137-145)
--- NOTE | 2022-08-14 09:45 | PM.IMPN ---
Progress Note: A&P Assessment and Plan (1) Small bowel obstruction: Code(s): K56.609 - Unspecified intestinal obstruction, unspecified as to partial versus complete obstruction Status: Acute Assessment and Plan: patient with history of SBO s/p adhesiolysis presented with abdominal pain and nausea CT on presentation showed small bowel obstruction appreciate general surgery consultation abdominal x-ray today shows no evidence of obstruction Small-bowel follow-through today showed resolution of prior SBO with contrast extending to the colon through normal-appearing small bowel within 1 hour NG tube has been discontinued advanced to low fat, fiber diet Continue with gentle IV fluids until better tolerating diet supportive care. Analgesics and antiemetics available as needed (2) Hypertension: Qualifiers: Hypertension type: essential hypertension Qualified Code(s): I10 - Essential (primary) hypertension Code(s): I10 - Essential (primary) hypertension Status: Chronic Assessment and Plan: blood pressure has been increasing likely as patient has been without p.o. meds. BP today 182/80 Will resume p.o. antihypertensives now that NG has been discontinued IV hydralazine with parameters as needed for hypertension while NPO Current bp is stable at 115/57 (3) Pneumothorax: Qualifiers: Pneumothorax type: unspecified pneumothorax Qualified Code(s): J93.9 - Pneumothorax, unspecified Code(s): J93.9 - Pneumothorax, unspecified Status: Chronic Assessment and Plan: CT of the abdomen/ pelvis demonstrates small chronic left pneumothorax which appears stable patient maintaining adequate O2 sats on room air no acute issues monitor respiratory status Time Spent With Patient Time with patient: Greater than 35 minutes Subjective Date/time seen: 08/14/22 09:45 Interval history: 08/14/22 0945 Patient seems to be stable at this time. Patient did have food and was able to tolerate a solid diet. Patient is currently wanting to stay another night just to make sure she can tolerate solid foods. Patient denies any chest pain, shortness a breath, nausea, vomiting, diarrhea, constipation, weakness or fatigue. Balbina Lopez is an 82-year-old female with a history of small-bowel obstruction s/p adhesiolysis in June 2020, chronic pneumothorax, hypertension, anxiety, and arthritis who is seen in follow-up for small bowel obstruction. She feels okay today. She does endorse feeling somewhat weak. She was able to get up and walk to the bathroom independently. She has no abdominal pain, nausea, or vomiting. She had a mild headache yesterday but this has resolved. She denies dizziness or lightheadedness. Her throat is sore from the NG tube. She is very eager for this to be removed. Passing flatus but still no bowel movements . Review of Systems Review of Systems: All systems reviewed & are unremarkable except as noted in HPI and below Exam Const: General: cooperative, healthy appearing, no acute distress, well developed, alert, awake and well nourished Nutritional Appearance: well nourished Orientation/consciousness: patient oriented x3 Limitations: no limitations HENMT: Head: normal to inspection Ears: hearing grossly normal bilaterally Face/Nose/Sinus: Normal external nose present Mouth: Yes Normal oral and palatal mucosa present, Yes lip normal and Yes tongue normal Teeth and gingiva: abnormal tooth and associated gingiva and poor dentition Eyes: General: appearance normal, both eyes and all related structures Neck: Neck: normal visual inspection, full ROM, trachea midline and supple Chest: Chest palpation & inspection: normal inspection of the chest Resp: Effort & Inspection: normal respiratory effort and able to speak in complete sentences Auscultation: clear to auscultation bilaterally Cardio: Jugular venous
--- NOTE | 2022-08-14 10:29 | PM.PNGS ---
Progress Note: A&P Assessment and Plan (1) Small bowel obstruction: Code(s): K56.609 - Unspecified intestinal obstruction, unspecified as to partial versus complete obstruction Status: Acute Assessment and Plan: SBFT showed contrast moving through to the colon in 1 hour. NG was removed and she is tolerating full liquids. Will advance to low fiber diet. If tolerating her diet later today, then it is okay to discharge the patient from our standpoint. Follow-up only as needed. (2) GI (gastrointestinal bleed): Code(s): K92.2 - Gastrointestinal hemorrhage, unspecified Status: Acute Plan I have discussed the patient's case and plan of care with Dr. Christensen. Subjective Subjective Date/Time Seen: 08/14/22 10:29 Patient reports: no new complaints, feels better and bowel movement Interval history: Patient seen and examined, chart reviewed. She denies any abdominal pain, nausea, or vomiting. She continues to feel better daily. She reports having multiple liquid stools through the night and into the early childhood worker after the Gastrografin study. She is tolerating full liquids. Review of Systems Review of Systems: All systems reviewed & are unremarkable except as noted in HPI and below Exam Const: General: comfortable and no acute distress Orientation/consciousness: patient oriented x3 GI: Inspection: normal to inspection and non-distended GI Palp: Yes Soft to palpation, No Tenderness to palpation present (GI), No Guarding due to palpation present (GI) and No Rebound tenderness present Auscultation: normal bowel sounds Objective Data Vital Signs Vital Signs: Vital Signs - 24 hr 08/13/22 15:14 08/13/22 20:37 08/13/22 21:27 Temperature Pulse Rate 70 Respiratory Rate Blood Pressure 158/68 H Pulse Oximetry Oxygen Delivery Room Air 08/13/22 21:51 08/14/22 05:41 08/14/22 08:28 Temperature 98.1 F 98.2 F Pulse Rate 60 58 L 79 Respiratory Rate 20 20 Blood Pressure 150/65 H 172/60 H Pulse Oximetry 97 97 Oxygen Delivery Intake/Output Intake/Output: Intake & Output 08/11/22 08/12/22 08/13/22 08/14/22 23:59 23:59 23:59 23:59 Intake Total 1999 1000 2750 415 Output Total 500 500 200 Balance 6860 688 9087 415 Meds/Results Medications: Active Medications Generic Name Dose Route Start Last Admin Trade Name Freq PRN Reason Stop Dose Admin Acetaminophen 1,000 mg 08/13/22 12:34 Acetaminophen 500 Mg Tablet PO Q6H PRN Mild Pain (1-3) or Fever Amlodipine Besylate 5 mg 08/11/22 09:00 08/14/22 07:38 Amlodipine Besylate 5 Mg Tablet PO Not Given DAILY JOZEF Amlodipine Besylate 2.5 mg 08/10/22 21:00 08/13/22 21:27 Amlodipine Besylate 2.5 Mg Tablet PO 2.5 mg HS JOZEF Administration Enoxaparin Sodium 40 mg 08/13/22 09:00 08/14/22 08:28 Enoxaparin 40 Mg/0.4 Ml Syringe SUB-Q 40 mg DAILY JOZEF Administration Hydralazine HCl 10 mg 08/11/22 15:45 Hydralazine Hcl 20 Mg/Ml Vial IV PUSH Q8H PRN Systolic BP >170 Hydrochlorothiazide 12.5 mg 08/14/22 09:00 08/14/22 08:29 Hydrochlorothiazide 12.5 Mg Capsule PO 12.5 mg QAM JOZEF Administration Hydromorphone HCl 0.5 mg 08/10/22 09:40 Hydromorphone Hcl Inj (*Crx) 1 Mg/Ml Syr IV PUSH Q4H PRN Pain Rated 7-10 Hydroxyzine HCl 25 mg 08/13/22 13:56 Hydroxyzine Hcl 25 Mg Tablet PO TID PRN anxiety Irbesartan 300 mg 08/14/22 09:00 08/14/22 08:29 Irbesartan 150 Mg Tablet PO 300 mg QAM JOZEF Administration Metoprolol Tartrate 50 mg 08/10/22 21:00 08/14/22 08:28 Metoprolol Tartrate 50 Mg Tab PO 50 mg Q12HR JOZEF Administration Ondansetron HCl 4 mg 08/10/22 09:40 08/10/22 14:33 Ondansetron Inj 4 Mg/2 Ml Vial IV PUSH 4 mg Q4H PRN Administration Nausea Pantoprazole Sodium 40 mg 08/14/22 09:00 08/14/22 08:29 Pantoprazole 40 Mg Tablet PO 40 mg QAM JOZEF Administration Phenol 1 spray 08/12/22 1
[2022-08-14 14:00] VITALS: BP 115/57; PULSE 57; RESP 20; TEMP 36.8; O2SAT 97
[2022-08-14 21:08] VITALS: PULSE 82
[2022-08-14] MEDS: amLODIPine BESYLATE 2.5 MG TABLET PO (21:11)
[2022-08-14 22:00] VITALS: BP 133/62; PULSE 55; RESP 18; TEMP 36.7; O2SAT 98
[2022-08-15 06:00] VITALS: BP 170/72; PULSE 62; RESP 14; TEMP 36.6; O2SAT 97
[2022-08-15 07:43] LABS: Basophils Percent Auto 0.7 % (0.2-1.2); Eosinophils Absolute Auto 0.1 K/mm3 (0-0.3); Eosinophils Percent Auto 1.7 % (0-4.4); Hematocrit 33.2 % (37.0-47.0); Hemoglobin 11.5 g/dL (12.0-15.0); Immature Granulocyte Absolute 0.04 K/mm3 (0.00-0.031); Immature Granulocyte Percent A 0.7 % (0-0.5); Lymphocytes Absolute Auto 1.25 K/mm3 (0.9-3.2); Lymphocytes Percent Auto 23.2 % (18.3-44.2); Mean Corpuscular HGB Conc 34.6 g/dl (32-36); Mean Corpuscular Hemoglobin 33.6 pg (26-34); Mean Corpuscular Volume 97.1 fl (80-100); Mean Platelet Volume 10.1 fl (7.4-10.4); Monocytes Absolute Auto 0.6 K/mm3 (0.1-0.6); Monocytes Percent Auto 11.9 % (2.6-8.5); Neutrophils Absolute Auto 3.3 K/mm3 (1.3-6.7); Neutrophils Percent Auto 61.8 % (45.5-73.1); Platelet Count Result 312 k/mm3 (150-375); Red Blood Count 3.42 M/mm3 (4.2-5.4); Red Cell Distribution Width 16.2 % (11.5-14.5); White Blood Count 5.4 K/mm3 (4.5-10.0)
[2022-08-15 07:52] LABS: Alanine Aminotransferase 17 U/L (6-35); Alkaline Phosphatase 62 U/L (38-126); Anion Gap 11 mmol/L (8-16); Aspartate Amino Transferase 26 U/L (14-36); Bilirubin,Total 0.9 mg/dL (0.2-1.3); Blood Urea Nitrogen 13 mg/dL (7-17); Calcium 9.2 mg/dL (8.4-10.2); Carbon Dioxide 26 mmol/L (22-30); Chloride 101 mmol/L (98-107); Estimated CRCL calculation 46 ml/min; Estimated Glomerular Filt Rate > 60; Glucose 106 mg/dL (65-110); Potassium 4.2 mmol/L (3.4-5.0); Sodium 138 mmol/L (137-145)
[2022-08-15 08:02] VITALS: PULSE 70
[2022-08-15] MEDS: amLODIPine BESYLATE 5 MG TABLET PO (08:02)
[2022-08-15] MEDS: ENOXAPARIN 40 MG/0.4 ML SYRINGE SUB-Q (08:02)
[2022-08-15] MEDS: IRBESARTAN 150 MG TABLET 300 MG PO (08:02)
[2022-08-15] MEDS: METOPROLOL TARTRATE 50 MG TAB PO (08:02)
[2022-08-15] MEDS: hydroCHLOROthiazide 12.5 MG CAPSULE PO (08:02)
[2022-08-15] MEDS: PANTOPRAZOLE 40 MG TABLET PO (08:02)
--- NOTE | 2022-08-15 08:45 | PM.DS ---
DS: Admitting Diagnosis Discharge Date 08/15/22 0845 Admitting Diagnosis Small bowel obstruction DS: Discharge Diagnosis Discharge Diagnosis (1) Small bowel obstruction: Code(s): K56.609 - Unspecified intestinal obstruction, unspecified as to partial versus complete obstruction Status: Acute Assessment and Plan: patient with history of SBO s/p adhesiolysis presented with abdominal pain and nausea CT on presentation showed small bowel obstruction appreciate general surgery consultation abdominal x-ray today shows no evidence of obstruction Small-bowel follow-through today showed resolution of prior SBO with contrast extending to the colon through normal-appearing small bowel within 1 hour NG tube has been discontinued advanced to low fat, fiber diet Continue with gentle IV fluids until better tolerating diet supportive care. Analgesics and antiemetics available as needed (2) Hypertension: Qualifiers: Hypertension type: essential hypertension Qualified Code(s): I10 - Essential (primary) hypertension Code(s): I10 - Essential (primary) hypertension Status: Chronic Assessment and Plan: blood pressure has been increasing likely as patient has been without p.o. meds. BP today 170/72 pre medications Will resume p.o. antihypertensives now that NG has been discontinued IV hydralazine with parameters as needed for hypertension while NPO (3) Pneumothorax: Qualifiers: Pneumothorax type: unspecified pneumothorax Qualified Code(s): J93.9 - Pneumothorax, unspecified Code(s): J93.9 - Pneumothorax, unspecified Status: Chronic Assessment and Plan: CT of the abdomen/ pelvis demonstrates small chronic left pneumothorax which appears stable patient maintaining adequate O2 sats on room air no acute issues monitor respiratory status DS: Summary Hospital Course Hospital Course: Patient is an 82-year-old female with a past medical history of hypertension, anxiety, arthritis who presented to the ED with complaints of abdominal pain. Patient also had nausea that accompany her abdominal pain. CT of the abdomen showed small bowel obstruction. General surgery was consulted. Serial x-rays were obtained. Small-bowel follow-through was done and showed resolution. NG tube was placed and discontinued. Patient has been able to tolerate a low-fat diet. Patient was given IV fluids for hydration along with pain medicines. Blood pressures have been elevated until she gets her meds than they are stable. Patient is stable for discharge at this time per labs and vital signs. Patient will need to continue to low-fat low-fiber diet. Patient currently denies any chest pain, shortness a breath, nausea, vomiting, diarrhea, constipation, weakness or fatigue. Status at Discharge Functional status at discharge: independent ambulation Overall status at discharge: patient is progressing back to baseline Time Spent with Patient Time attestation: Total time spent providing and/or coordinating discharge services: 38 minutes Time spent: Greater than 30 minutes Specific discharge activities: Diagnostic testing, chart review, developing a treatment plan, education, care coordination documentation, physical exam, result review Exam Const: General: cooperative, healthy appearing, no acute distress, well developed, alert, awake and well nourished Nutritional Appearance: well nourished Orientation/consciousness: patient oriented x3 Limitations: no limitations HENMT: Head: normal to inspection Ears: hearing grossly normal bilaterally Face/Nose/Sinus: Normal external nose present Mouth: Yes Normal oral and palatal mucosa present, Yes lip normal and Yes tongue normal Teeth and gingiva: abnormal tooth and associated gingiva and poor dentition Eyes: General: appearance normal, both eyes and all related structures Neck: Neck: normal visual inspect
== END 2022-08-15 10:00 | disposition home or self-care (01) | DRG 389 ==
LOC: ANHED 09:40 → ANH3MEDSUR 10:39
PROVIDERS: Internal Medicine; Physician Assistant; Surgery; Admitting Provider Chiropractor; Emergency Provider Emergency Medicine; PCP Emergency Medicine; Visit Provider Nurse Practitioner
DX: K56.609 Unspecified intestinal obstruction, unspecified as to partial versus complete obstruction (principal); J93.81 Chronic pneumothorax; I10 Essential (primary) hypertension; E78.5 Hyperlipidemia, unspecified; M19.90 Unspecified osteoarthritis, unspecified site; F41.9 Anxiety disorder, unspecified; Z20.822 Contact with and (suspected) exposure to COVID-19
CPT/HCPCS: 36415; 74018; 74177; 74250; 80048; 80053; 81001; 83605; 83690; 83735; 85025; 85027; 93005; 96361; 96374; 96375; 99285; A9270; C9113; C9803; J1170; J1650; J2405; J7030; J7120; Q9967; U0003; U0005

== ENCOUNTER 2022-11-09 11:17 | Outpatient (CLI) | payer BC, SELFPAY ==
[2022-11-09 19:49] LABS: Appearance Urine Cloudy (Clear); Bilirubin Urine Negative (Negative); Blood Urine Trace-intact (Negative); Color Urine Yellow (Yellow); Glucose Urine UA Negative (Negative); Ketones Urine Negative (Negative); Leukocyte Esterase Ur Negative LEU/UL (Negative); Nitrate Urine Negative (Negative); Protein Urine Negative (Negative); Specific Grav Ur >= 1.030 (1.001-1.035); Urobilinogen Urine 0.2 mg/dL (<2.0); pH Urine 5.5 (5.0-9.0)
[2022-11-09 20:06] LABS: Amorphous Sediment Urine Few; Mucus Urine Few /lpf; RBC Urine 0-2 /hpf (0-2); WBC Urine 0-3 /hpf
[2022-11-09 20:09] LABS: Add Urine Microscopic? YES
== END 2022-11-09 11:18 | disposition home or self-care (01) ==
LOC: ANHGOSHLAB 11:21
PROVIDERS: PCP Emergency Medicine; Visit Provider Emergency Medicine
DX: R10.9 Unspecified abdominal pain (principal)
CPT/HCPCS: 81001

== ENCOUNTER 2022-11-16 09:49 | Outpatient (CLI) | payer BC, SELFPAY ==
--- NOTE | ~2022-11-16 | US_ITS ---
Renal-Bladder ultrasound Clinical History: Abdominal pain Technique: Real-time sonographic imaging of the kidneys and urinary bladder was performed. Findings: The right kidney measures 10.2 cm in length and the left kidney measures 11.5 cm. There is mild right hydronephrosis. Bilateral parapelvic renal cysts are present. Renal cortical echogenicity is within normal limits. No renal mass lesion is identified. The urinary bladder is moderately distended at the time of this exam. No intraluminal echoes are iden tified. No abnormal wall thickening is seen. Impression: Mild right hydronephrosis. Bilateral parapelvic renal cysts. Reviewed, dictated and finalized at location . ACKER Impression: Mild right hydronephrosis. Bilateral parapelvic renal cysts.
== END 2022-11-16 09:50 | disposition home or self-care (01) ==
PROVIDERS: PCP Emergency Medicine; Visit Provider Emergency Medicine
DX: R10.9 Unspecified abdominal pain (principal); N13.30 Unspecified hydronephrosis; N28.1 Cyst of kidney, acquired
CPT/HCPCS: 76775

== ENCOUNTER 2022-11-28 12:29 | Outpatient (CLI) | payer BC, SELFPAY ==
--- NOTE | ~2022-11-28 | CT_ITS ---
Non-contrast CT scan of the Abdomen and Pelvis Clinical indication: Hydronephrosis Technique: 5 mm axial scans were obtained through the abdomen and pelvis without intravenous or oral contrast. Dose reduction technique was used on this scan by utilizing automated exposure control and iterative reconstruction technique. The dose-length product (DLP) was 231.21 mGy-cm. COMPARISON: 08/10/2022 Findings: Images through the lung bases reveal no abnormalities. Parapelvic renal cysts are present bilaterally. No definite hydronephrosis. No radiopaque stones seen . Stable hepatic cysts noted. The spleen, pancreas, gallbladder, and adrenals appear normal. There is no aortic aneurysm. There is no evidence of bowel obstruction. Sigmoid diverticulosis present. Images through the pelvis were performed. There is no evidence of ascites or lymphadenopathy. Urinary bladder unremarkable. Patient is post hysterectomy. No pelvic mass seen. Impression: Bilateral parapelvic renal cysts. No hydronephrosis. Reviewed, dictated and finalized at [facility]. E SALESMAN AND DRIVER Impression: Bilateral parapelvic renal cysts. No hydronephrosis.
== END 2022-11-28 12:30 | disposition home or self-care (01) ==
PROVIDERS: PCP Emergency Medicine; Visit Provider Emergency Medicine
DX: N13.30 Unspecified hydronephrosis (principal); N28.1 Cyst of kidney, acquired
CPT/HCPCS: 74176

== ENCOUNTER 2023-08-09 11:43 | Outpatient (CLI) | payer BC, SELFPAY ==
--- NOTE | ~2023-08-09 | XR_ITS ---
Left Knee Technique: AP, lateral, and sunrise views were obtained. Clinical History: Pain Findings: No fracture or dislocation is seen. Osseous alignment is anatomic. Joint spaces are preserv ed without degenerative or erosive change. Chondrocalcinosis of the menisci noted. No joint effusion is seen. Impression: . Chondrocalcinosis of the menisci. Reviewed, dictated and finalized at location M. Impression: . Chondrocalcinosis of the menisci.
--- NOTE | ~2023-08-09 | XR_ITS ---
Right Knee Technique: AP, lateral, and sunrise views were obtained. Clinical History: Pain Findings: No fracture or dislocation is seen. There is moderate medial compartment degenerative espinal e with medial compartment narrowing. There is mild patellar and lateral joint line spurring. There is probable subtle chondrocalcinosis of the menisci. Soft tissues are unremarkable. No joint effusion i s seen. 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 Subtle chondrocalcinosis of the menisci. Reviewed, dictated and finalized at location M. 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 Subtle chondrocalcinosis of the menisci.
== END 2023-08-09 11:44 ==
PROVIDERS: PCP Emergency Medicine; Visit Provider Emergency Medicine
DX: M17.11 Unilateral primary osteoarthritis, right knee (principal); M25.562 Pain in left knee
CPT/HCPCS: 73564

== ENCOUNTER 2023-09-27 20:10 | Inpatient (IN) | payer MEDICARE, BC, SELFPAY ==
--- NOTE | ~2023-09-27 | XR_ITS ---
Upright portable view of the abdomen Clinical history: NG tube placement COMPARISON: 09/28/2023 at 12:52 AM Findings: NG tube is now in satisfactory position. Bowel gas pattern is nonspecific. No evidence for obstruction or free air. No abnormal mass lesion or calcification is seen. Osseous structures are int act. Impression: NG tube in satisfactory position. Reviewed, dictated and finalized at [facility]. CHOOL AIDE Impression: NG tube in satisfactory position.
--- NOTE | ~2023-09-27 | XR_ITS ---
EXAMINATION: XR abdomen/kub 1V INDICATION: Small bowel obstruction TECHNIQUE: Supine views of the abdomen were obtained on 2 radiographs. COMPARISON: 09/28/2023 FINDINGS: Contrast from earlier small bowel follow-through partially opacifies the colon. There are n o dilated loops of bowel. No free intraperitoneal gas is identified. The visualized lung bases are cl ear. Interval surgical change is noted. IMPRESSION: 1. No dilated loops of bowel are identified. Reviewed, dictated and finalized at location F. NE LATHE OPERATOR
--- NOTE | ~2023-09-27 | CT_ITS ---
EXAMINATION: CT abdomen pelvis w con DATE: 09/27/2023 23:55 INDICATION: Generalized abdominal pain. Nausea and vomiting. TECHNIQUE: Computed tomography (CT) of the abdomen and pelvis was performed with 100 mL Omnipaque 350 intravenous contrast. Automated exposure control and iterative reconstruction technique were employe d. The dose-length product was 412.67 mGy-cm. COMPARISON: CT abdomen and pelvis 11/28/22, 08/10/22 FINDINGS: The visualized portions of the lung bases demonstrate mild atelectasis. There is mild bronc hiectasis bilaterally. No pleural effusion. Cardiomegaly is noted. No pericardial effusion. There is a small sliding hiatal hernia. There are bilateral breast implants. There are cysts in the liver cadence uring up to 2.9 cm. There is an 11 mm hyperenhancing mass in right hepatic lobe, stable from 08/10/22 , likely a hemangioma or focal nodular hyperplasia. The gallbladder is normal. Calcifications in the spleen are consistent with old granulomatous disease. The pancreas and adrenal glands are normal. The re are cysts in the kidneys measuring up to 2.3 cm on the left. The appendix is not visualized. There are multiple dilated loops of bowel. Multiple transition points in close proximity are seen on coron al images, consistent with a closed-loop small bowel obstruction. There is mesenteric edema of the in volved bowel loops. There is a small volume of ascites. There is calcified atherosclerosis of the aor ta and many of the other arteries. There are no pathologically enlarged lymph nodes. There is severe lumbar spondylosis. IMPRESSION: 1. Closed-loop small bowel obstruction. I called this result to Shira Mirza. 2. Small volume of ascites. Reviewed, dictated and finalized at location E. OR SALES OPERATIONS MANAGER
--- NOTE | ~2023-09-27 | XR_ITS ---
Upright portable view of the abdomen Clinical history: NG tube placement Findings: NG tube is present, tip just at the GE junction region. Bowel gas pattern is nonspecific. N o evidence for obstruction or free air. No abnormal mass lesion or calcification is seen. Osseous str uctures are intact. Impression: NG tube tip at the GE junction. Further advancement into the stomach acquired. Reviewed, dictated and finalized at location M. ETICS PROFESSOR Impression: NG tube tip at the GE junction. Further advancement into the stomach acquired.
--- NOTE | ~2023-09-27 | XR_ITS ---
EXAMINATION: XR sm bowel follow through DATE: 09/28/2023 17:13 INDICATION: Small bowel obstruction. TECHNIQUE: Oral contrast was administered, and a time course of radiographs of the abdomen was obtain ed. Fluoroscopy of the small bowel was not performed. Fluoroscopy exposure time was 0 minutes. The to janine number of images was 8. COMPARISON: CT abdomen and pelvis 09/27/23 FINDINGS: There are multiple dilated loops of small bowel. There is gastroesophageal reflux of contrast. There is a small sliding hiatal hernia. At 6 hours, contrast remains in dilated small bowel. There is no co ntrast in the colon. IMPRESSION: 1. Small bowel obstruction. 2. Small sliding hiatal hernia. 3. Gastroesophageal reflux. Reviewed, dictated and finalized at location E. PROFESSIONAL AIDE
--- NOTE | ~2023-09-27 | US_ITS ---
EXAMINATION: US renal BI DATE: 09/30/2023 12:12 INDICATION: worsened kidney function TECHNIQUE: Multiple grayscale and Doppler ultrasound images of the kidneys were obtained. COMPARISON: 09/27/2023. FINDINGS: The right kidney measures 9.0 x 4.6 x 5.6 cm. The left kidney measures 11.5 x 6.1 x 5.6 cm. The kidne ys demonstrate normal parenchymal echogenicity. Simple 1.3 cm right renal cyst. Small right parapelvi c cyst. Apparent left pelviectasis and caliectasis demonstrated to be parapelvic cysts in the prior C T. There is mild. The bladder is not well visualized. IMPRESSION: Unremarkable renal sonogram findings. Reviewed, dictated and finalized at location K. BLE LOCATOR TEST DESK
[2023-09-27 20:13] VITALS: BP 134/90; PULSE 67; RESP 16; TEMP 36.6; O2SAT 100
[2023-09-27 22:30] LABS: Basophils Absolute Auto 0.1 K/mm3 (0.0-0.1); Basophils Percent Auto 0.5 % (0.2-1.2); Eosinophils Percent Auto 0.1 % (0-4.4); Hematocrit 40.3 % (37.0-47.0); Hemoglobin 13.6 g/dL (12.0-15.0); Immature Granulocyte Absolute 0.07 K/mm3 (0.00-0.031); Immature Granulocyte Percent A 0.5 % (0-0.5); Lymphocytes Absolute Auto 0.78 K/mm3 (0.9-3.2); Lymphocytes Percent Auto 6.1 % (18.3-44.2); Mean Corpuscular HGB Conc 33.7 g/dl (32-36); Mean Corpuscular Hemoglobin 32.8 pg (26-34); Mean Corpuscular Volume 97.1 fl (80-100); Mean Platelet Volume 10.6 fl (7.4-10.4); Monocytes Absolute Auto 0.4 K/mm3 (0.1-0.6); Monocytes Percent Auto 3.3 % (2.6-8.5); Neutrophils Absolute Auto 11.5 K/mm3 (1.3-6.7); Neutrophils Percent Auto 89.5 % (45.5-73.1); Nucleated Red Blood Cells Perc 0.2 % (0.0-0.2); Platelet Count Result 412 k/mm3 (150-375); Red Blood Count 4.15 M/mm3 (4.2-5.4); Red Cell Distribution Width 20.8 % (11.5-14.5); White Blood Count 12.9 K/mm3 (4.5-10.0)
--- NOTE | 2023-09-27 22:41 | ED.ABDPAIN ---
HPI - Abdominal Pain General Chief Complaint: Abdominal Pain <ALAN Campos Last Filed: 09/28/23 01:35> Stated Complaint: abdominal pain <ALAN Campos Last Filed: 09/28/23 01:35> Time Seen by Provider: 09/27/23 21:48 <ALAN Campos Last Filed: 09/28/23 01:35> Source: patient <ALAN Campos Last Filed: 09/28/23 01:35> Mode of arrival: ambulatory <ALAN Campos Last Filed: 09/28/23 01:35> Limitations: no limitations <ALAN Campos Last Filed: 09/28/23 01:35> History of Present Illness HPI narrative: This is a 83 year old female that presents to the ER for abdominal pain and vomiting. Ongoing today. Reports history of bowel obstructions and her pain feels similar. She does report she had a bowel movement today. Denies fever or dysuria. <ALAN Campos Last Filed: 09/28/23 01:35> Related Data Home Medications: Home Medications Medication Instructions Recorded Confirmed cholecalciferol (vitamin D3) 50 2,000 unit PO DAILY 08/10/22 12 mcg (2,000 unit) capsule <ALAN Campos Last Filed: 09/28/23 01:35> Allergies/Adverse Reactions: Allergies Allergy/AdvReac Type Severity Reaction Status Date / Time No Known Allergies Allergy Verified 09/27/23 20:10 <ALAN Campos Last Filed: 09/28/23 01:35> Review of Systems Review of Systems: CONSTITUTIONAL: Denies fever, GASTROINTESTINAL: Reports abdominal pain, nausea, vomiting GENITOURINARY: Denies dysuria <ALAN Campos Last Filed: 09/28/23 01:35> All systems reviewed & are unremarkable except as noted in HPI and below <ALAN Campos Last Filed: 09/28/23 01:35> [facility] Past Medical History Medical History: Medical History (Updated 09/28/23 @ 01:18 by Shira Mirza PA-C) Anxiety Arthritis Hypertension Other and unspecified hyperlipidemia Pneumothorax chronic left apical pneumothorax since 06/21/2018, small right pleural effusion <Shira Mirza PA-C - Last Filed: 09/28/23 01:35> Surgical History Surgical History: Surgical History History of appendectomy History of back surgery 2 surgeries History of hysterectomy <Shira Mirza PA-C - Last Filed: 09/28/23 01:35> Family History Family History: Family History Father Mesothelioma Mother Cerebrovascular accident <Shira Mirza PA-C - Last Filed: 09/28/23 01:35> Social History Social History: Social History Smoking status: Never smoker Alcohol intake: never Substance use: never Lack of Transportation: No Lack of Food: Never True Current Housing: I Have Housing Concerned About Future Housing: No Difficulty Paying Gas/Electric Bills: No Difficulty Paying for Meds: No Currently Unemployed: No Education: High School Diploma/GED Difficulty w/ Childcare or Family Care: No Gender identity (if verbalized by the patient): Female Spiritual care concerns: No <Shira Mirza PA-C - Last Filed: 09/28/23 01:35> Exam Narrative: GENERAL: Well-appearing, well-nourished, and in no acute distress. HEAD: Normocephalic, atraumatic. EYES: EOMI. ENT: Nares clear, no rhinorrhea or epistaxis. Mucous membranes moist. CHEST: Clear to auscultation. No respiratory distress. No wheezes rales or rhonchi HEART: Regular rate and rhythm. No murmur heard. Normal peripheral pulses. ABDOMEN: Soft, nondistended, normal active bowel sounds. Tender to palpation throughout the mid abdomen, without guarding EXTREMITIES: Normal range of motion. No edema. SKIN: Warm, dry, no rash. NEURO: No focal deficits. Alert and oriented x3. PSYCH: Normal mood and affect <Shira Mirza PA-C - Last Filed: 09/28/23 01:35> Course Course Emergency
[2023-09-27] MEDS: MORPHINE SULFATE (*CRX) 4 MG/ML INJ IV PUSH (23:00)
[2023-09-27] MEDS: ONDANSETRON INJ 4 MG/2 ML VIAL IV PUSH (23:00)
[2023-09-27 23:23] LABS: Alanine Aminotransferase 23 U/L (6-35); Albumin Level 4.9 g/dL (3.5-5.1); Alkaline Phosphatase 104 U/L (38-126); Anion Gap 6 mmol/L (8-16); Aspartate Amino Transferase 31 U/L (14-36); Bilirubin,Total 1.7 mg/dL (0.2-1.3); Blood Urea Nitrogen 20 mg/dL (7-17); Calcium 10.8 mg/dL (8.4-10.2); Carbon Dioxide 22 mmol/L (22-30); Chloride 102 mmol/L (98-107); Estimated CRCL calculation 47 ml/min; Estimated Glomerular Filt Rate > 60; Glucose 158 mg/dL (65-110); Lactic Acid Reflex 2.8 mmol/L (0.7-2.0); Lipase 34 U/L (23-300); Sodium 130 mmol/L (137-145)
[2023-09-28] VITALS (25 sets, daily range): BP systolic 155–184; BP diastolic 65–84; PULSE 76–105; RESP 11–25; TEMP 36.4–36.9; O2SAT 92–100; BMI 21.7
[2023-09-28] MEDS: SODIUM CHLORIDE 0.9% IV 1,000 ML 999 ML IV CONT (00:28)
--- NOTE | 2023-09-28 00:30 | PC.NURSE ---
16 fr NG inserted into right nare with stomach contents spontaneously returned. Patient tolerated well.
[2023-09-28] MEDS: MORPHINE SULFATE (*CRX) 4 MG/ML INJ IV PUSH (01:10)
--- NOTE | 2023-09-28 01:12 | PC.NURSE ---
Addendum entered by Antoinette Haynes RN 09/28/23 01:13: NG advanced 3 cm to 62 at the right nare. Placed on low intermittent suction with gastric content return. Original Note: NG advanced 3 cm to 62 at the right nare.
[2023-09-28 02:07] LABS: Reflex Lactic Acid Yes or No Add Lactic
--- NOTE | 2023-09-28 03:38 | ADMGEN ---
This patient, Balbina Lopez, was admitted to 3 Med Surg Room 327-01. Patient/family oriented to hospital policies and general routines including ID bracelet, bed and alarms, visiting hours, pain management, procedures, bathroom and other care routines, personal items, smoking policy, room service/diet, and visiting hours. Information on how to activate the Rapid Response Team has been discussed. Patient/Family are encouraged to report perceived risks to care and to ask questions if they do not understand what they are told or what they should do.
[2023-09-28 03:40] LABS: Lactic Acid 1.9 mmol/L (0.7-2.0)
[2023-09-28 03:48] LABS: Appearance Urine Turbid (Clear); Bacteria Urine 4+ /hpf; Bilirubin Urine Negative (Negative); Blood Urine 2+ (Negative); Calcium Oxalate Crystals Urine Present /hpf; Color Urine Dark Yellow (Yellow); Glucose Urine UA Negative (Negative); Ketones Urine 2+ mg/dL (Negative); Leukocyte Esterase Ur 2+ LEU/UL (Negative); Nitrate Urine Negative (Negative); Protein Urine 1+ mg/dL (Negative); RBC Urine >100 /hpf (0-2); Squamous Epithelial Cell Urine Few /hpf (Few); WBC Urine >100 /hpf; pH Urine 5.5 (5.0-9.0)
[2023-09-28 03:56] LABS: Specific Grav Ur 1.074 (1.001-1.035)
[2023-09-28 03:57] LABS: Add Urine Microscopic? YES
[2023-09-28] MEDS: ONDANSETRON INJ 4 MG/2 ML VIAL IV PUSH (03:59)
[2023-09-28] MEDS: SODIUM CHLORIDE 0.9% IV 1,000 ML 125 ML IV CONT (03:59)
[2023-09-28] MEDS: HYDROmorphone HCL INJ (*CRX) 1 MG/ML SYR IV PUSH ×3 (03:59→17:23)
[2023-09-28] MEDS: amLODIPine BESYLATE 5 MG TABLET PO (08:47)
[2023-09-28] MEDS: METOPROLOL TARTRATE 50 MG TAB PO ×2 (08:47→17:23)
--- NOTE | 2023-09-28 10:40 | PM.IMHP ---
H&P: HPI History of Present Illness Date/Time: 09/28/23 10:40 Chief Complaint: Abdominal pain Narrative: This is an 83-year-old with a past medical history of hypertension and 2 previous small-bowel obstructions that Presented to the ED on 09/27/2023 due to abdominal pain and vomiting. patient is a very poor historian and was unable to tell me when her last bowel movement was. She was previously seen in the fall of last year for small-bowel obstruction as well. She states she is not passing gas at this time. She cannot tell me of any previous abdominal surgeries she has had in the past other than she thinks she had a small bowel obstruction that required surgery at 1 point. Most of the data was taken from ED notes and previous hospital stays. CT abdomen pelvis showing closed loop small-bowel obstruction and a small volume ascites. General surgery was consulted. NG tube was placed. Found to have white count of 12.9, elevated lactic of 2.8 and an elevated bilirubin. Repeat lactic was 1.9. She was admitted to the setting for further treatment of small-bowel obstruction. Patient is a poor historian. She states that she does live alone. May need placement at the time of discharge due to it being unsafe for her to return to her current living situation. [facility] Past Medical History Medical History (Updated 09/28/23 @ 10:48 by Melita Tyler PA-C) Anxiety Arthritis Hypertension Other and unspecified hyperlipidemia Pneumothorax chronic left apical pneumothorax since 06/21/2018, small right pleural effusion Surgical History Surgical History (Updated 09/28/23 @ 10:45 by Melita Tyler PA-C) History of appendectomy History of back surgery 2 surgeries History of hysterectomy Family History Family History Father Mesothelioma Mother Cerebrovascular accident Social History Social History Smoking status: Never smoker Alcohol intake: never Substance use: never Lack of Transportation: No Lack of Food: Never True Current Housing: I Have Housing Concerned About Future Housing: No Difficulty Paying Gas/Electric Bills: No Difficulty Paying for Meds: No Currently Unemployed: No Education: High School Diploma/GED Difficulty w/ Childcare or Family Care: No Gender identity (if verbalized by the patient): Female Spiritual care concerns: No Meds Home Medications and Allergies Home Medications Medication Instructions Recorded Confirmed Type cholecalciferol (vitamin D3) 50 2,000 unit PO DAILY 08/10/22 09/28/23 History mcg (2,000 unit) capsule amlodipine 5 mg tablet 5 mg PO .COMPLEX #135 tabs 08/09/23 09/28/23 Rx metoprolol tartrate 50 mg tablet 50 mg PO BID #180 tabs 08/09/23 09/28/23 Rx Allergies Allergy/AdvReac Type Severity Reaction Status Date / Time No Known Allergies Allergy Verified 09/27/23 20:10 Vital Signs Vital Signs - 24 hr 09/27/23 20:13 09/28/23 00:03 09/28/23 00:30 Temperature 97.9 F Pulse Rate 67 85 91 Respiratory Rate 16 Blood Pressure 134/90 Pulse Oximetry 100 Oxygen Delivery Room Air 09/28/23 00:45 09/28/23 01:00 09/28/23 01:10 Temperature Pulse Rate 78 78 86 Respiratory Rate 11 L Blood Pressure 179/74 H Pulse Oximetry 98 94 Oxygen Delivery 09/28/23 01:15 09/28/23 01:16 09/28/23 01:30 Temperature Pulse Rate 77 76 88 Respiratory Rate 20 16 Blood Pressure Pulse Oximetry 97 96 98 Oxygen Delivery 09/28/23 01:31 09/28/23 01:32 09/28/23 01:45 Temperature Pulse Rate 83 83 85 Respiratory Rate 20 Blood Pressure Pulse Oximetry 97 98 95 Oxygen Delivery 09/28/23 02:00 09/28/23 02:01 09/28/23 02:15 Temperature Pulse Rate 86 85 85 Respiratory Rate Blood Pressure 177/73 H Pulse Oximetry 97 95 94 Oxygen Delivery 09/28/23 02:16 09/28/23 02:17 09/28/23 02:30
--- NOTE | 2023-09-28 10:42 | PM.CNGS ---
Assessment and Plan Assessment and plan (1) Small bowel obstruction: Code(s): K56.609 - Unspecified intestinal obstruction, unspecified as to partial versus complete obstruction Status: Acute Assessment and Plan: I have reviewed the CT and discussed the findings with the patient. She has evidence of a recurrent small-bowel obstruction. There is some concern on the CT of a closed-loop small-bowel obstruction. I would like to get a Gastrografin small-bowel follow-through today to assess for any persistent obstruction. Discussed with patient that if obstruction is still present, she will likely require exploratory laparotomy during this admission. Will continue to follow along with patient for any changes in abdominal exam. Discussed with patient that repeat surgery can encounter worsening scar tissue from her previous surgery. There are also risks of bowel injury or possibly requiring bowel resection. Patient voiced her understanding. History of Present Illness Consult details Consult date: 09/28/23 Reason for consult: other (Small-bowel obstruction) Requesting physician: Shira Mirza PA-C Narrative: This is an 83-year-old woman who I am asked to see for a small-bowel obstruction. She began experiencing abdominal pain with nausea and vomiting that started yesterday. She did have a bowel movement yesterday, however her recollection of dates is somewhat inconsistent. She feels that she has been in the hospital for more than 1 night, even though she just came into the emergency department last night. She denies passing any flatus. She has had a history of small-bowel obstructions in the past. She underwent exploratory laparotomy with adhesiolysis on 06/27/[address] Christensen. She had another small bowel obstruction about 1 year ago that resolved without requiring surgery. In the emergency department, she was noted to have a slightly elevated white blood count and CT showed evidence of a possible closed loop small bowel obstruction. NG tube was placed and she was admitted for further treatment. She is still having some occasional abdominal pain but is stating that she is feeling slightly better. She still is not passing any flatus and denies a bowel movement. Review of Systems Review of Systems: All systems reviewed & are unremarkable except as noted in HPI and below Constitutional: Constitutional: Denies chills and Denies fever(s) Eyes: Eyes: Denies change in vision ENT: Denies hearing loss, Denies neck pain and Denies sore throat Cardiovascular: Cardiovascular: Denies chest pain and Denies dyspnea Respiratory: Respiratory: Denies cough, Denies dyspnea and Denies wheezing Gastrointestinal: Gastrointestinal: Reports as per HPI Genitourinary: Genitourinary: Denies hematuria and Denies dysuria Musculoskeletal: Musculoskeletal: Denies arthralgias, Denies joint swelling and Denies neck pain Allergic/Immunologic: Allergic/Immunologic: Denies wheezing PMFSH Past Medical History Medical History (Updated 09/28/23 @ 10:48 by Melita Tyler PA-C) Anxiety Arthritis Hypertension Other and unspecified hyperlipidemia Pneumothorax chronic left apical pneumothorax since 06/21/2018, small right pleural effusion Surgical History Surgical History (Updated 09/28/23 @ 10:45 by Melita Tyler PA-C) History of appendectomy History of back surgery 2 surgeries History of hysterectomy Family History Family History Father Mesothelioma Mother Cerebrovascular accident Social History Social History Smoking status: Never smoker Alcohol intake: never Substance use: never Lack of Transportation: No Lack of Food: Never True Current Housing: I Have Housing Concerned About Future Housing: No Difficulty Paying Gas/Electric Bills: No Difficulty Paying for Meds: No Currently Unempl
[2023-09-28] MEDS: SODIUM CHLORIDE 0.9% IV 1,000 ML 100 ML IV CONT (14:17)
[2023-09-28] MEDS: amLODIPine BESYLATE 2.5 MG TABLET PO (17:23)
[2023-09-29] VITALS (14 sets, daily range): BP systolic 114–161; BP diastolic 47–86; PULSE 57–104; RESP 14–21; TEMP 36.2–37.2; O2SAT 93–99
[2023-09-29] MEDS: SODIUM CHLORIDE 0.9% IV 1,000 ML 100 ML IV CONT ×2 (00:41→16:52)
[2023-09-29] MEDS: HYDROmorphone HCL INJ (*CRX) 1 MG/ML SYR IV PUSH (03:24)
[2023-09-29 07:47] LABS: Alanine Aminotransferase 15 U/L (6-35); Albumin Level 3.9 g/dL (3.5-5.1); Alkaline Phosphatase 70 U/L (38-126); Anion Gap 8 mmol/L (8-16); Aspartate Amino Transferase 21 U/L (14-36); Bilirubin,Total 1.1 mg/dL (0.2-1.3); Blood Urea Nitrogen 37 mg/dL (7-17); Calcium 9.1 mg/dL (8.4-10.2); Carbon Dioxide 25 mmol/L (22-30); Chloride 109 mmol/L (98-107); Estimated CRCL calculation 29 ml/min; Estimated Glomerular Filt Rate 43; Glucose 174 mg/dL (65-110); Potassium 4.3 mmol/L (3.4-5.0); Sodium 142 mmol/L (137-145)
--- NOTE | 2023-09-29 08:17 | PC.NURSE ---
Patient down to surgery via bed.
--- NOTE | 2023-09-29 08:28 | WPDHPUPDATE1 ---
History and Physical Update Update Date/Time: 09/29/23 08:28 History and Physical has been reviewed, including an updated exam of the patient. There are NO changes in the patient's condition. Risks, benefits, and alternatives have been discussed and questions answered. Patient agrees to proceed with procedure. Patient seemed somewhat confused yesterday when I saw her and nursing is saying she is not able to sign her own consent this morning. I attempted calling her son but was unable to reach him. Per the nurses, he does not live in this area. The patient also has a friend listed as emergency contact. She was contacted by nursing and telephone consent was obtained with her friend.
--- NOTE | 2023-09-29 08:29 | WPDANESEPPF ---
Anes - Initial Pre Proc Eval Procedure: Operation Date: 09/29/23 07:30 Proposed Procedures p Exploratory Laparotomy, Pos Bowel Resec - Severo Patterson DO Date/Time: 09/29/23 08:29 Surgeon: Pearl John MD Pre Op Diagnosis: SBO Patient Data Age: 83 Gender: F Height: 1.65 m Weight: 59.4 kg Last Vital Signs Temp 36.6 C 09/29/23 05:35 Pulse 95 09/29/23 05:35 Resp 20 09/29/23 05:35 BP 155/70 H 09/29/23 05:35 Pulse Ox 93 09/29/23 05:35 O2 Del Method Room Air 09/28/23 20:52 Allergies Allergy/AdvReac Type Severity Reaction Status Date / Time No Known Allergies Allergy Verified 09/27/23 20:10 Home Medications Medication Instructions Recorded Confirmed Type cholecalciferol (vitamin D3) 50 2,000 unit PO DAILY 08/10/22 09/28/23 History mcg (2,000 unit) capsule amlodipine 5 mg tablet 5 mg PO .COMPLEX #135 tabs 08/09/23 09/28/23 Rx metoprolol tartrate 50 mg tablet 50 mg PO BID #180 tabs 08/09/23 09/28/23 Rx Laboratory Tests 09/29/23 07:07 WBC Pending RBC Pending Hgb Pending Hct Pending MCV Pending MCH Pending MCHC Pending RDW Pending Plt Count Pending MPV Pending Sodium 142 mmol/L (137-145) Potassium 4.3 mmol/L (3.4-5.0) Chloride 109 H mmol/L (98-107) Carbon Dioxide 25 mmol/L (22-30) Anion Gap 8 mmol/L (8-16) BUN 37 H D mg/dL (7-17) Creatinine 1.20 H mg/dL (0.7-1.0) Estim Creat Clear Calc 29 ml/min Estimated GFR 43 L (59 - ) Glucose 174 H mg/dL (65-110) Calcium 9.1 mg/dL (8.4-10.2) Total Bilirubin 1.1 mg/dL (0.2-1.3) AST 21 U/L (14-36) ALT 15 U/L (6-35) Alkaline Phosphatase 70 U/L (38-126) Total Protein 7.0 g/dL (6.3-8.2) Albumin 3.9 g/dL (3.5-5.1) Patient hx anesthesia problems: none Family hx anesthesia problems: none Results Review: All pre-operative results and documents have been reviewed as part of the pre-operative evaluation. [facility] Past Medical History Medical History Anxiety Arthritis Hypertension Other and unspecified hyperlipidemia Pneumothorax chronic left apical pneumothorax since 06/21/2018, small right pleural effusion Surgical History Surgical History (Updated 09/29/23 @ 08:29 by Devang Lopez MD) H/O exploratory laparotomy History of appendectomy History of back surgery 2 surgeries History of hysterectomy Family History Family History Father Mesothelioma Mother Cerebrovascular accident Social History Social History Smoking status: Never smoker Alcohol intake: never Substance use: never Lack of Transportation: No Lack of Food: Never True Current Housing: I Have Housing Concerned About Future Housing: No Difficulty Paying Gas/Electric Bills: No Difficulty Paying for Meds: No Currently Unemployed: No Education: High School Diploma/GED Difficulty w/ Childcare or Family Care: No Gender identity (if verbalized by the patient): Female Spiritual care concerns: No Anes - Eval Final PreProcedure Day of Procedure 09/29/23 08:29 Patient weight: normal Heart: regular rate and rhythm Lungs: clear to auscultation Airway: Mallampati scale class II Neurological: alert and oriented (x 2) Last oral intake: >/= 8 hours ASA classification: III Emergent: yes Anesthetic plan: proceed Anesthesia type and monitoring: general ETT and standard monitoring Results Review: All pre-operative results and documents have been reviewed as part of the pre-operative evaluation. Informed Consent: The patient's anesthetic plan and its attendant risks and benefits were discussed with the patient/family/POA. Questions were solicited and answers provided to the satisfaction of the patient/fa
[2023-09-29] MEDS: ceFAZolin 2 GM/D5W 50 ML 2 GM/50 ML BAG IVPB (08:45)
[2023-09-29] MEDS: LACTATED RINGERS 1,000 ML 30 ML IV CONT (10:17)
--- NOTE | 2023-09-29 10:23 | W.PM.PROC2 ---
Procedure Note - Detailed Date of Procedure 09/29/23 Pre-op Diagnosis Small bowel obstruction Post-op Diagnosis Same Procedure Performed 1. Exploratory laparotomy 2. Ileal resection with [id number] ileal anastomosis 3. Adhesiolysis Surgeon Severo Patterson, Anesthesia General Indications This is an 83-year-old woman who abdominal pain with nausea and vomiting. CT showed evidence of small-bowel obstruction. Patient has a history of bowel obstructions in the past. She underwent exploratory laparotomy with adhesiolysis in 2019. She then had another bowel obstruction in 2021 which resolved without surgery. Her findings on the CT were suspicious for closed-loop small-bowel obstruction. Gastrografin small-bowel follow-through was obtained yesterday and showed complete small-bowel obstruction. Decision was then made to proceed with exploratory laparotomy with possible small bowel resection. Findings Exploratory laparotomy was performed. The patient was found to have dilated loops of proximal small bowel and then a transition point was identified in the lower midline abdomen. The involved segment of small bowel appeared necrotic but not perforated. There was a tight napkin ring type obstruction secondary to adhesions. Once the location of the adhesion was identified, taken down these adhesions appeared to relieve the obstruction. This appeared to be an area of ileum adherent to the descending mesocolon. There was about a 2 ft segment of ileum that appeared necrotic but the bowel proximal and distal to this appeared healthy and viable. An ileal resection was performed followed by a [id number] stapled ileal anastomosis. There were several more adhesions of omentum to small bowel and small bowel to itself. These adhesions were taken down carefully using Metzenbaum scissors. Once all of the adhesions were taken down I was able to run the entire small bowel from ligament of Treitz to the terminal ileum. The colon all appeared normal as well aside from having some hard stool throughout the colon. There was about 300 mL of blood tinged ascites within the pelvis, but no other significant abnormalities. The small bowel resection segment was sent to the lab for pathology. Description of Procedure Procedure as well as risks, benefits, and alternatives were discussed with the patient and her friend who was her closest emergency contact. Telephone consent was obtained and placed in chart prior to procedure. Patient was brought back to surgical suite. She was placed supine on operating table. Time-out was done to confirm patient and procedure. She was then intubated by the anesthesia department. Her abdomen was then prepped and draped in sterile fashion using chlorhexidine prep. A 20 cm vertical midline incision was made using a 10 blade scalpel. Electrocautery was used for hemostasis and for dissection through the subcutaneous tissue. The linea alba was then incised using electrocautery. The peritoneum was then entered and the fascial incision was extended throughout the length of the skin incision. There were a few omental adhesions up to the abdominal wall and these were taken down using electrocautery. I then placed a large Kodi wound protector and carefully inspected the abdominal cavity. The dilated proximal bowel was traced to the distal portion where the obstruction was. Adhesiolysis was carefully performed using Metzenbaum scissors and blunt dissection. There was a tight napkin ring obstruction caused by an adhesion between the ileum and descending mesocolon. Once this adhesive band was taken down I was able to deliver the involved segment of bowel out through the midline incision. The bowel appeared necrotic but there was no evidence of perforation. Decision was made to perform a small-bowel resection with the involved segment. The proximal and distal bowel appeared healthy and viable. This appeared to be involving the proximal ileum. A wi
[2023-09-29] MEDS: fentaNYL CITRATE INJ (*CRX) 100 MCG/2 ML VIAL 25 MCG IV PUSH (10:41)
--- NOTE | 2023-09-29 11:26 | PC.NURSE ---
Pt back from surgery to room 327 at 1115.
--- NOTE | 2023-09-29 11:45 | PC.NURSE ---
Talked to patient's son, Jhonny, at [phone]. Updated Jhonny on patient's current status post exploratory laparotomy. Answered all questions.
[2023-09-29] MEDS: IBUPROFEN IV 800 MG/200 ML 800 MG/200 ML BAG 400 MG IVPB ×2 (12:01→16:53)
[2023-09-29 12:05] LABS: Hematocrit 31.8 % (37.0-47.0); Hemoglobin 10.3 g/dL (12.0-15.0); Mean Corpuscular HGB Conc 32.4 g/dl (32-36); Mean Corpuscular Volume 101.9 fl (80-100); Mean Platelet Volume 10.7 fl (7.4-10.4); Platelet Count Result 343 k/mm3 (150-375); Red Blood Count 3.12 M/mm3 (4.2-5.4); Red Cell Distribution Width 21.8 % (11.5-14.5); White Blood Count 42.2 K/mm3 (4.5-10.0)
[2023-09-29] MEDS: metroNIDAZOLE 500 MG/ISO 100ML 500 MG/100 ML BAG 100 MG IVPB ×2 (12:34→20:06)
--- NOTE | 2023-09-29 14:32 | PM.IMPN ---
Progress Note: A&P Assessment and Plan (1) Small bowel obstruction: Code(s): K56.609 - Unspecified intestinal obstruction, unspecified as to partial versus complete obstruction Status: Acute Assessment and Plan: Patient has history of small-bowel obstructions. NG tube placed. General surgery consulted. IV fluids continued. Patient is not passing gas at this time and is unable to say when her last bowel movement was. POD 0 of exploratory laparotomy with bowel resection. (2) UTI (urinary tract infection): Code(s): N39.0 - Urinary tract infection, site not specified Status: Acute Assessment and Plan: UA with 2+ blood, 2+ leukocyte esterase, greater than 100 rbc's and greater, 100 wbc's, and 4+ bacteria. Patient started on Rocephin. Urine culture with growth of normal corrina. Will DC Rocephin and start Levaquin to cover GI. (3) Hypertension: Qualifiers: Hypertension type: primary hypertension Qualified Code(s): I10 - Essential (primary) hypertension Code(s): I10 - Essential (primary) hypertension Status: Chronic Assessment and Plan: Continue home medication of amlodipine and metoprolol. (4) Hyperlipidemia: Qualifiers: Hyperlipidemia type: mixed hyperlipidemia Qualified Code(s): E78.2 - Mixed hyperlipidemia Code(s): E78.5 - Hyperlipidemia, unspecified Status: Chronic Assessment and Plan: Chronic. Stable. (5) History of abdominal surgery: Code(s): Z98.890 - Other specified postprocedural states Status: Acute Assessment and Plan: After review of her chart she was found to have a history of appendectomy and hysterectomy. Subjective Date/time seen: 09/29/23 14:32 Interval history: Patient laying in bed comfortably. She denies any pain at the time. She has not passed any gas. Denies nausea. When lightly palpating abdomen she winces in pain. She is POD 0. She had an exploratory laparotomy with bowel resection. Exam Narrative: GENERAL: Comfortable, no acute distress HENMT: moist mucous membranes EYES: EOM intact b/l NECK: no lymphadenopathy RESPIRATORY: clear to auscultation CARDIO: tachycardia, regular rhythm GI: Distended, soft, diffuse tenderness, bowel sounds present, bandage dry and intact. SKIN: no rashes EXTREMITIES: no edema, redness or tenderness Objective Data Vital Signs Vital Signs: Vital Signs - 24 hr 09/28/23 17:47 09/28/23 21:10 09/28/23 20:52 Temperature 97.6 F 97.6 F Pulse Rate 105 H Respiratory Rate 18 Blood Pressure 155/84 H Pulse Oximetry 92 Oxygen Delivery Room Air Oxygen Flow Rate 09/29/23 05:35 09/29/23 10:17 09/29/23 10:31 Temperature 97.9 F 98.9 F Pulse Rate 95 101 H 93 Respiratory Rate 20 21 H 20 Blood Pressure 155/70 H 157/62 H 154/54 H Pulse Oximetry 93 96 99 Oxygen Delivery Simple Face Mask Simple Face Mask Oxygen Flow Rate 6 6 09/29/23 10:45 09/29/23 11:00 09/29/23 11:48 Temperature Pulse Rate 104 H 93 Respiratory Rate 21 H 19 Blood Pressure 161/60 H 148/47 H Pulse Oximetry 96 98 93 Oxygen Delivery Nasal Cannula Nasal Cannula Nasal Cannula Oxygen Flow Rate 2 2 2 09/29/23 11:15 09/29/23 11:30 09/29/23 12:00 Temperature 98.0 F 97.8 F 97.5 F L Pulse Rate 93 94 94 Respiratory Rate 14 16 16 Blood Pressure 141/54 H 146/56 H 142/58 H Pulse Oximetry 93 95 95 Oxygen Delivery Oxygen Flow Rate 09/29/23 13:00 Temperature 97.7 F Pulse Rate 83 Respiratory Rate 16 Blood Pressure 130/50 L Pulse Oximetry 96 Oxygen Delivery Oxygen Flow Rate Intake/Output Intake/Output: Intake & Output 09/26/23 09/27/23 09/28/23 09/29/23 23:59 23:59 23:59 23:59 Intake Total 2050 1800 Output Total 705 1625 Balance 1345 175 Meds/Results Medications: Active Medications Generic Name Dose Route Start Last Admin Trade Name Freq PRN Reason St
[2023-09-29] MEDS: METOPROLOL TARTRATE 50 MG TAB PO (16:53)
[2023-09-29] MEDS: amLODIPine BESYLATE 2.5 MG TABLET PO (16:53)
[2023-09-29 19:37] LABS: Hemoglobin 8.1 g/dL (12.0-15.0); Mean Corpuscular HGB Conc 32.4 g/dl (32-36); Mean Corpuscular Hemoglobin 33.1 pg (26-34); Mean Platelet Volume 10.4 fl (7.4-10.4); Platelet Count Result 245 k/mm3 (150-375); Red Blood Count 2.45 M/mm3 (4.2-5.4); White Blood Count 30.3 K/mm3 (4.5-10.0)
[2023-09-29 20:14] LABS: Lymphocytes Absolute Manual 1.51 K/mm3 (1.1-4.5); Monocytes Absolute Manual 1.51 K/mm3 (0.1-0.90); Monocytes Percent Manual 5 % (3-9); Neutrophils Percent Manual 90 % (46-73); Platelet Estimate Adequate (Adequate); Total Cells Counted 100
[2023-09-29 20:15] LABS: Anisocytosis 3+ (NORMAL); Schistocytes None Seen (NORMAL)
[2023-09-30] VITALS (12 sets, daily range): BP systolic 123–139; BP diastolic 47–57; PULSE 60–81; RESP 16–20; TEMP 36.2–36.5; O2SAT 92–97
[2023-09-30] MEDS: IBUPROFEN IV 800 MG/200 ML 800 MG/200 ML BAG 400 MG IVPB ×4 (00:55→18:02)
[2023-09-30] MEDS: metroNIDAZOLE 500 MG/ISO 100ML 500 MG/100 ML BAG 100 MG IVPB ×3 (04:30→20:20)
[2023-09-30 07:01] LABS: Hematocrit 24.1 % (37.0-47.0); Hemoglobin 7.6 g/dL (12.0-15.0); Mean Corpuscular HGB Conc 31.5 g/dl (32-36); Mean Corpuscular Volume 104.8 fl (80-100); Mean Platelet Volume 10.8 fl (7.4-10.4); Platelet Count Result 221 k/mm3 (150-375); Red Cell Distribution Width 21.6 % (11.5-14.5); White Blood Count 17.9 K/mm3 (4.5-10.0)
[2023-09-30 07:10] LABS: Anion Gap 3 mmol/L (8-16); Blood Urea Nitrogen 47 mg/dL (7-17); Calcium 7.5 mg/dL (8.4-10.2); Carbon Dioxide 24 mmol/L (22-30); Chloride 116 mmol/L (98-107); Estimated CRCL calculation 25 ml/min; Estimated Glomerular Filt Rate 36; Glucose 110 mg/dL (65-110); Potassium 3.6 mmol/L (3.4-5.0); Sodium 143 mmol/L (137-145)
[2023-09-30 09:06] LABS: Iron 17 ug/dL (37-170)
[2023-09-30 09:14] LABS: Transferrin 116 mg/dL (206-381)
[2023-09-30 09:16] LABS: Percent Iron Saturation 10 % (20-50)
[2023-09-30] MEDS: amLODIPine BESYLATE 5 MG TABLET PO (09:21)
[2023-09-30] MEDS: METOPROLOL TARTRATE 50 MG TAB PO ×2 (09:22→16:21)
[2023-09-30] MEDS: levoFLOXacin 750 MG/D5W 150 ML 750 MG/150 ML BAG 100 MG IVPB (09:22)
[2023-09-30] MEDS: PANTOPRAZOLE SODIUM IV 40 MG VIAL IV PUSH ×2 (09:26→20:22)
[2023-09-30] MEDS: LACTATED RINGERS 1,000 ML 100 ML IV CONT (09:26)
[2023-09-30] MEDS: ENOXAPARIN 40 MG/0.4 ML SYRINGE SUB-Q (09:26)
[2023-09-30 09:36] LABS: Thyroid Stimulating Hormone Reflex 0.279 uIU/mL (0.465-4.68)
[2023-09-30] MEDS: HYDROmorphone HCL INJ (*CRX) 1 MG/ML SYR IV PUSH ×4 (09:40→18:45)
[2023-09-30 10:12] LABS: Folic Acid 4.8 ng/mL (2.76->20)
[2023-09-30 10:55] LABS: Free T4 Free Thyroxine Reflex 2.13 ng/dL (0.78-2.19)
[2023-09-30 12:02] LABS: Total Triiodothyronine (T3) 0.56 NG/ML (0.97-1.69)
--- NOTE | 2023-09-30 12:18 | PM.PNGS ---
Progress Note: A&P Assessment and Plan (1) Small bowel obstruction: Code(s): K56.609 - Unspecified intestinal obstruction, unspecified as to partial versus complete obstruction Status: Acute Assessment and Plan: Patient doing well on postop day 1. Continue NG decompression and bowel rest. Postoperative anemia likely related to hemodilution and mild intraoperative blood loss. No signs of continued active bleeding. Blood pressure and heart rate stable. Will get an H&H this afternoon. (2) History of abdominal surgery: Code(s): Z98.890 - Other specified postprocedural states Status: Acute (3) UTI (urinary tract infection): Code(s): N39.0 - Urinary tract infection, site not specified Status: Acute Subjective Subjective Date/Time Seen: 09/30/23 12:18 Interval history: Patient having some abdominal pain today. Quiles catheter was clogged but has been replaced and had about 400 mL of output. Urine looks clear. No flatus or BM yet. Exam GI: Inspection: non-distended and incision (Intact with devika) GI Palp: Yes Soft to palpation, Yes Tenderness to palpation present (GI) (Incisional) and No Guarding due to palpation present (GI) Auscultation: Hypoactive bowel sounds present Objective Data Vital Signs Vital Signs: Vital Signs - 24 hr 09/29/23 13:00 09/29/23 16:53 09/29/23 16:00 Temperature 36.5 C Pulse Rate 83 89 89 Respiratory Rate 16 Blood Pressure 130/50 L Pulse Oximetry 96 Oxygen Delivery Oxygen Flow Rate 09/29/23 20:00 09/29/23 20:00 09/29/23 20:47 Temperature 36.2 C L Pulse Rate 57 L 57 L 67 Respiratory Rate 16 16 Blood Pressure 114/86 Pulse Oximetry 96 96 Oxygen Delivery Nasal Cannula Oxygen Flow Rate 3 09/30/23 00:15 09/30/23 00:00 09/30/23 04:00 Temperature 36.5 C Pulse Rate 67 62 75 Respiratory Rate 20 Blood Pressure 123/49 L Pulse Oximetry 97 Oxygen Delivery Oxygen Flow Rate 09/30/23 05:20 09/30/23 08:47 Temperature 36.3 C L 36.4 C L Pulse Rate 63 70 Respiratory Rate 18 20 Blood Pressure 138/57 L 137/49 L Pulse Oximetry 96 97 Oxygen Delivery Oxygen Flow Rate Intake/Output Intake/Output: Intake & Output 09/27/23 09/28/23 09/29/23 09/30/23 23:59 23:59 23:59 23:59 Intake Total 2050 3100 440 Output Total 705 1725 500 Balance 1345 1375 -60 Meds/Results Medications: Active Medications Generic Name Dose Route Start Last Admin Trade Name Freq PRN Reason Stop Dose Admin Amlodipine Besylate 5 mg 09/28/23 09:00 09/30/23 09:21 Amlodipine Besylate 5 Mg Tablet PO 5 mg DAILY JOZEF Administration Amlodipine Besylate 2.5 mg 09/28/23 18:00 09/29/23 16:53 Amlodipine Besylate 2.5 Mg Tablet PO 2.5 mg EVENING JOZEF Administration Enoxaparin Sodium 40 mg 09/30/23 09:00 09/30/23 09:26 Enoxaparin 40 Mg/0.4 Ml Syringe SUB-Q 40 mg DAILY JOZEF Administration Hydromorphone HCl 0.5 mg 09/29/23 11:02 Hydromorphone Hcl Inj (*Crx) 1 Mg/Ml Syr IV PUSH Q2H PRN Pain Rated 4-6 Hydromorphone HCl 1 mg 09/29/23 11:02 09/30/23 09:40 Hydromorphone Hcl Inj (*Crx) 1 Mg/Ml Syr IV PUSH 1 mg Q2H PRN Administration Pain Rated 7-10 Metronidazole 500 mg in 100 mls @ 100 mls/hr 09/29/23 12:00 09/30/23 04:30 Flagyl 500 Mg/Iso Soln 100 Ml IVPB 100 mls/hr Q8H JOZEF Administration Ibuprofen 800 mg in 200 mls @ 400 mls/hr 09/29/23 12:00 09/30/23 05:41 Caldolor 800 Mg/200 Ml IVPB 10/01/23 06:29 400 mls/hr Q6H JOZEF Administration Levofloxacin/Dextrose 750 mg in 150 mls @ 100 mls/hr 09/30/23 08:00 09/30/23 09:22 Levaquin 750 Mg/D5w 150 Ml IVPB 100 mls/hr Q24H JOZEF Administration Lactated Ringer's 1,000 mls @ 100 mls/hr 09/30/23 07:40 12/10/23 09:26 Lr - Lactated Ringers Iv IV CONT 100 mls/hr .Q10H JOZEF Administration Metoprolol Tartrate 50 mg 09/28/23 09:00 09/30/23 09:22 Metoprolol Tartrate 50 Mg Tab PO 50 mg
--- NOTE | 2023-09-30 12:57 | PM.IMPN ---
Progress Note: A&P Assessment and Plan (1) Small bowel obstruction: Code(s): K56.609 - Unspecified intestinal obstruction, unspecified as to partial versus complete obstruction Status: Acute Assessment and Plan: Patient has history of small-bowel obstructions. NG tube placed. General surgery consulted. IV fluids continued. Patient is not passing gas at this time and is unable to say when her last bowel movement was. POD 1 of exploratory laparotomy with bowel resection. (2) UTI (urinary tract infection): Code(s): N39.0 - Urinary tract infection, site not specified Status: Acute Assessment and Plan: UA with 2+ blood, 2+ leukocyte esterase, greater than 100 rbc's and greater, 100 wbc's, and 4+ bacteria. Patient started on Rocephin. Urine culture with growth of normal corrina. Will DC Rocephin and start Levaquin to cover GI. Quiles catheter exchange on 09/30/2023 due to being clogged. (3) Hypertension: Qualifiers: Hypertension type: primary hypertension Qualified Code(s): I10 - Essential (primary) hypertension Code(s): I10 - Essential (primary) hypertension Status: Chronic Assessment and Plan: Continue home medication of amlodipine and metoprolol. (4) OLLIE (acute kidney injury): Code(s): N17.9 - Acute kidney failure, unspecified Status: Acute Assessment and Plan: BUN creatinine of 47/1.4. After bladder scanning patient already has Quiles in she was found have 400 in the bladder. Quiles catheter exchange. Ultrasound of the Kidneys ordered. (5) Anemia: Code(s): D64.9 - Anemia, unspecified Status: Acute Assessment and Plan: on admission patient's hemoglobin and hematocrit were 13.6/40.3 Postoperatively patient's hemoglobin and hematocrit are 7.6/24.1. There is no signs of any active hemorrhaging. Continue to monitor H&H. Transfuse if hemoglobin less than 70 Anemia workup revealed iron of 17, TIBC 147,% saturation 10, transferrin 116 and ferritin of 271 Will add iron supplement. (6) Hyperlipidemia: Qualifiers: Hyperlipidemia type: mixed hyperlipidemia Qualified Code(s): E78.2 - Mixed hyperlipidemia Code(s): E78.5 - Hyperlipidemia, unspecified Status: Chronic Assessment and Plan: Chronic. Stable. (7) History of abdominal surgery: Code(s): Z98.890 - Other specified postprocedural states Status: Acute Assessment and Plan: After review of her chart she was found to have a history of appendectomy and hysterectomy. Subjective Date/time seen: 09/30/23 12:57 Interval history: Patient in a pretty decent amount of abdominal pain. She is more alert today. Patient did verbalize that she needed to urinate although she had a Quiles catheter in. Bladder was markedly distended. Bladder scan showed 400 and the bladder. Quiles catheter was replaced. Patient still has not had any gas or bowel movement. Exam Narrative: GENERAL: Comfortable, no acute distress HENMT: dry mucous membranes, NG tube patent EYES: EOM intact b/l NECK: no lymphadenopathy RESPIRATORY: clear to auscultation CARDIO: tachycardia, regular rhythm GI: Distended, diffuse tenderness, bowel sounds present, bandage dry and intact, distended bladder. SKIN: no rashes EXTREMITIES: no edema, redness or tenderness Objective Data Vital Signs Vital Signs: Vital Signs - 24 hr 09/29/23 13:00 09/29/23 16:53 09/29/23 16:00 Temperature 97.7 F Pulse Rate 83 89 89 Respiratory Rate 16 Blood Pressure 130/50 L Pulse Oximetry 96 Oxygen Delivery Oxygen Flow Rate 09/29/23 20:00 09/29/23 20:00 09/29/23 20:47 Temperature 97.1 F L Pulse Rate 57 L 57 L 67 Respiratory Rate 16 16 Blood Pressure 114/86 Pulse Oximetry 96 96 Oxygen Delivery Nasal Cannula Oxygen Flow Rate 3 09/30/23 00:15 09/30/23 00:00 1
[2023-09-30 16:54] LABS: Hematocrit 23.1 % (37.0-47.0); Hemoglobin 7.1 g/dL (12.0-15.0)
[2023-10-01] VITALS (13 sets, daily range): BP systolic 135–152; BP diastolic 48–59; PULSE 56–71; RESP 16–20; TEMP 35.9–36.4; O2SAT 93–96; BMI 21.7
[2023-10-01] MEDS: IBUPROFEN IV 800 MG/200 ML 800 MG/200 ML BAG 400 MG IVPB ×2 (00:47→05:47)
[2023-10-01] MEDS: LACTATED RINGERS 1,000 ML 100 ML IV CONT (04:28)
[2023-10-01] MEDS: metroNIDAZOLE 500 MG/ISO 100ML 500 MG/100 ML BAG 100 MG IVPB ×3 (04:28→20:30)
[2023-10-01] MEDS: HYDROmorphone HCL INJ (*CRX) 1 MG/ML SYR IV PUSH (04:43)
[2023-10-01] MEDS: levoFLOXacin 750 MG/D5W 150 ML 750 MG/150 ML BAG 100 MG IVPB (08:20)
[2023-10-01 08:21] LABS: Anion Gap 4 mmol/L (8-16); Blood Urea Nitrogen 40 mg/dL (7-17); Calcium 8.2 mg/dL (8.4-10.2); Carbon Dioxide 23 mmol/L (22-30); Chloride 120 mmol/L (98-107); Estimated CRCL calculation 34 ml/min; Estimated Glomerular Filt Rate 53; Glucose 85 mg/dL (65-110); Potassium 3.8 mmol/L (3.4-5.0); Sodium 147 mmol/L (137-145)
[2023-10-01] MEDS: FERROUS GLUCONATE 324 MG TABLET PO (08:35)
[2023-10-01] MEDS: PANTOPRAZOLE SODIUM IV 40 MG VIAL IV PUSH ×2 (08:35→20:30)
[2023-10-01] MEDS: amLODIPine BESYLATE 5 MG TABLET PO (08:35)
[2023-10-01] MEDS: METOPROLOL TARTRATE 50 MG TAB PO ×2 (08:35→16:13)
[2023-10-01] MEDS: ENOXAPARIN 40 MG/0.4 ML SYRINGE SUB-Q (08:41)
[2023-10-01] MEDS: ONDANSETRON INJ 4 MG/2 ML VIAL IV PUSH (09:38)
--- NOTE | 2023-10-01 09:54 | PCPTNOTE ---
Attempted PT evaluation, pt refused due to having just vomited. Pt agreeable to attempting therapy at later time. Will follow.
[2023-10-01 10:39] LABS: Hematocrit 24.9 % (37.0-47.0); Hemoglobin 7.8 g/dL (12.0-15.0); Mean Corpuscular HGB Conc 31.3 g/dl (32-36); Mean Corpuscular Hemoglobin 33.3 pg (26-34); Mean Corpuscular Volume 106.4 fl (80-100); Platelet Count Result 215 k/mm3 (150-375); Red Blood Count 2.34 M/mm3 (4.2-5.4); Red Cell Distribution Width 21.2 % (11.5-14.5); White Blood Count 5.7 K/mm3 (4.5-10.0)
[2023-10-01] MEDS: DEXTROSE 5% 1,000 ML 1,000 ML 100 ML IV CONT (10:45)
[2023-10-01 12:29] LABS: Anion Gap 5 mmol/L (8-16); Blood Urea Nitrogen 36 mg/dL (7-17); Calcium 8.4 mg/dL (8.4-10.2); Carbon Dioxide 25 mmol/L (22-30); Chloride 116 mmol/L (98-107); Estimated CRCL calculation 34 ml/min; Estimated Glomerular Filt Rate 53; Glucose 96 mg/dL (65-110); Sodium 146 mmol/L (137-145)
[2023-10-01] MEDS: HYDROmorphone HCL INJ (*CRX) 1 MG/ML SYR 0.5 MG IV PUSH (12:48)
--- NOTE | 2023-10-01 12:49 | PM.PNGS ---
Progress Note: A&P Assessment and Plan (1) Small bowel obstruction: Code(s): K56.609 - Unspecified intestinal obstruction, unspecified as to partial versus complete obstruction Status: Acute Assessment and Plan: Await return of bowel function. Will give Dulcolax suppository today. Increase activity. (2) History of abdominal surgery: Code(s): Z98.890 - Other specified postprocedural states Status: Acute (3) UTI (urinary tract infection): Code(s): N39.0 - Urinary tract infection, site not specified Status: Acute Subjective Subjective Date/Time Seen: 10/01/23 12:49 Interval history: Patient improving a little. No flatus or BM yet. Pain controlled. Exam GI: Inspection: non-distended and incision (intact with devika) GI Palp: Yes Soft to palpation and Yes Tenderness to palpation present (GI) (incisional) Auscultation: Hypoactive bowel sounds present Objective Data Vital Signs Vital Signs: Vital Signs - 24 hr 09/30/23 16:21 09/30/23 16:00 09/30/23 16:00 Temperature 36.3 C L Pulse Rate 76 70 71 Respiratory Rate 20 Blood Pressure 129/50 L Pulse Oximetry 95 Oxygen Delivery Oxygen Flow Rate 09/30/23 20:00 09/30/23 20:35 10/01/23 00:30 Temperature 36.2 C L 35.9 C L Pulse Rate 61 65 Respiratory Rate 16 16 Blood Pressure 139/47 L 145/59 H Pulse Oximetry 93 92 96 Oxygen Delivery Nasal Cannula Oxygen Flow Rate 2 09/30/23 20:00 10/01/23 00:00 10/01/23 04:00 Temperature Pulse Rate 60 56 L 65 Respiratory Rate Blood Pressure Pulse Oximetry Oxygen Delivery Oxygen Flow Rate 10/01/23 04:50 10/01/23 08:09 10/01/23 08:35 Temperature 36.2 C L 36.3 C L Pulse Rate 60 59 L 60 Respiratory Rate 20 18 Blood Pressure 142/51 H 152/54 H Pulse Oximetry 93 95 Oxygen Delivery Oxygen Flow Rate 10/01/23 10:37 10/01/23 11:27 Temperature Pulse Rate Respiratory Rate Blood Pressure Pulse Oximetry Oxygen Delivery Nasal Cannula Nasal Cannula Oxygen Flow Rate 2 2 Intake/Output Intake/Output: Intake & Output 09/28/23 09/29/23 09/30/23 12/11/23 23:59 23:59 23:59 23:59 Intake Total 4760 9858 4648 366 Output Total 451 7264 1300 1300 Balance 1345 1375 1190 -370 Meds/Results Medications: Active Medications Generic Name Dose Route Start Last Admin Trade Name Freq PRN Reason Stop Dose Admin Amlodipine Besylate 5 mg 09/28/23 09:00 10/01/23 08:35 Amlodipine Besylate 5 Mg Tablet PO 5 mg DAILY JOZEF Administration Amlodipine Besylate 2.5 mg 09/28/23 18:00 09/30/23 18:24 Amlodipine Besylate 2.5 Mg Tablet PO Not Given EVENING JOZEF Bisacodyl 10 mg 10/01/23 12:47 Bisacodyl 10 Mg Suppository RECTAL 10/01/23 12:48 ONCE ONE Enoxaparin Sodium 40 mg 09/30/23 09:00 10/01/23 08:41 Enoxaparin 40 Mg/0.4 Ml Syringe SUB-Q 40 mg DAILY JOZEF Administration Ferrous Gluconate 324 mg 10/01/23 08:00 10/01/23 08:35 Ferrous Gluconate 324 Mg Tablet PO 324 mg DAILY@0800 [facility] Administration Hydromorphone HCl 0.5 mg 09/29/23 11:02 10/01/23 12:48 Hydromorphone Hcl Inj (*Crx) 1 Mg/Ml Syr IV PUSH 0.5 mg Q2H PRN Administration Pain Rated 4-6 Hydromorphone HCl 1 mg 09/29/23 11:02 10/01/23 04:43 Hydromorphone Hcl Inj (*Crx) 1 Mg/Ml Syr IV PUSH 1 mg Q2H PRN Administration Pain Rated 7-10 Metronidazole 500 mg in 100 mls @ 100 mls/hr 09/29/23 12:00 10/01/23 11:53 Flagyl 500 Mg/Iso Soln 100 Ml IVPB 100 mls/hr Q8H JOZEF Administration Levofloxacin/Dextrose 750 mg in 150 mls @ 100 mls/hr 09/30/23 08:00 10/01/23 09:50 Levaquin 750 Mg/D5w 150 Ml IVPB Infused Q24H JOZEF Infusion Dextrose 1,000 mls @ 100 mls/hr 10/01/23 08:30 Dextrose 5% 1,000 Ml IV CONT .Q10H JOZEF Metoprolol Tartrate 50 mg 09/28/23 09:00 10/01/23 08:35 Metoprolol Tartrate 50 Mg Tab PO 50 mg BID JOZEF Administration Ondansetron HCl 4 mg 09/28/23
--- NOTE | 2023-10-01 13:01 | P.PNIM_ITS ---
Progress Note: A&P Assessment and Plan (1) Small bowel obstruction: Code(s): K56.609 - Unspecified intestinal obstruction, unspecified as to partial versus complete obstruction Status: Acute Assessment and Plan: Patient has history of small-bowel obstructions. * NG tube placed. * General surgery consulted. * IV fluids continued. * Patient is not passing gas at this time and is unable to say when her last bowel movement was. * POD 2 of exploratory laparotomy with bowel resection. * PT/OT ordered (2) UTI (urinary tract infection): Code(s): N39.0 - Urinary tract infection, site not specified Status: Acute Assessment and Plan: UA with 2+ blood, 2+ leukocyte esterase, greater than 100 rbc's and greater, 100 wbc's, and 4+ bacteria. * Patient started on Rocephin. * Urine culture with growth of normal corrina. * Will DC Rocephin and start Levaquin to cover GI. * Quiles catheter exchange on 09/30/2023 due to being clogged. (3) Hypertension: Qualifiers: Hypertension type: primary hypertension Qualified Code(s): I10 - Essential (primary) hypertension Code(s): I10 - Essential (primary) hypertension Status: Chronic Assessment and Plan: Continue home medication of amlodipine and metoprolol. (4) OLLIE (acute kidney injury): Code(s): N17.9 - Acute kidney failure, unspecified Status: Acute Assessment and Plan: BUN creatinine of 47/1.4. * After bladder scanning patient already has Quiles in she was found have 400 in the bladder. * Quiles catheter exchange. * Ultrasound of the Kidneys normal. * 10/01 BUN and creatinine of 36/1 (5) Anemia: Code(s): D64.9 - Anemia, unspecified Status: Acute Assessment and Plan: on admission patient's hemoglobin and hematocrit were 13.6/40.3 * Hemoglobin and hematocrit are 7.8/24.9. * There is no signs of any active hemorrhaging. * Continue to monitor H&H. * Transfuse if hemoglobin less than 70 * Anemia workup revealed iron of 17, TIBC 147,% saturation 10, transferrin 116 and ferritin of 271 * Will add iron supplement. (6) Hyperlipidemia: Qualifiers: Hyperlipidemia type: mixed hyperlipidemia Qualified Code(s): E78.2 - Mixed hyperlipidemia Code(s): E78.5 - Hyperlipidemia, unspecified Status: Chronic Assessment and Plan: Chronic. Stable. (7) History of abdominal surgery: Code(s): Z98.890 - Other specified postprocedural states Status: Acute Assessment and Plan: After review of her chart she was found to have a history of appendectomy and hysterectomy. Subjective Date/time seen: 10/01/23 13:01 Interval history: Patient appeared to be in pain when I entered the room. During examination patient started vomiting. Patient had her NG tube suction turned off due to getting her medications. The nurse was notified. She was given one time dose of Zofran. Patient has not had any gas or bowel movement. Exam Narrative: GENERAL: Comfortable, no acute distress HENMT: dry mucous membranes, NG tube patent EYES: EOM intact b/l NECK: no lymphadenopathy RESPIRATORY: clear to auscultation CARDIO: tachycardia, regular rhythm GI: diffuse tenderness, bowel sounds present, bandage dry and intact. SKIN: no rashes EXTREMITIES: no edema, redness or tenderness Objective Data Vital Signs V
--- NOTE | 2023-10-01 13:01 | PM.IMPN ---
Progress Note: A&P Assessment and Plan (1) Small bowel obstruction: Code(s): K56.609 - Unspecified intestinal obstruction, unspecified as to partial versus complete obstruction Status: Acute Assessment and Plan: Patient has history of small-bowel obstructions. NG tube placed. General surgery consulted. IV fluids continued. Patient is not passing gas at this time and is unable to say when her last bowel movement was. POD 2 of exploratory laparotomy with bowel resection. PT/OT ordered (2) UTI (urinary tract infection): Code(s): N39.0 - Urinary tract infection, site not specified Status: Acute Assessment and Plan: UA with 2+ blood, 2+ leukocyte esterase, greater than 100 rbc's and greater, 100 wbc's, and 4+ bacteria. Patient started on Rocephin. Urine culture with growth of normal corrina. Will DC Rocephin and start Levaquin to cover GI. Quiles catheter exchange on 09/30/2023 due to being clogged. (3) Hypertension: Qualifiers: Hypertension type: primary hypertension Qualified Code(s): I10 - Essential (primary) hypertension Code(s): I10 - Essential (primary) hypertension Status: Chronic Assessment and Plan: Continue home medication of amlodipine and metoprolol. (4) OLLIE (acute kidney injury): Code(s): N17.9 - Acute kidney failure, unspecified Status: Acute Assessment and Plan: BUN creatinine of 47/1.4. After bladder scanning patient already has Quiles in she was found have 400 in the bladder. Quiles catheter exchange. Ultrasound of the Kidneys normal. 10/01 BUN and creatinine of 36/1 (5) Anemia: Code(s): D64.9 - Anemia, unspecified Status: Acute Assessment and Plan: on admission patient's hemoglobin and hematocrit were 13.6/40.3 Hemoglobin and hematocrit are 7.8/24.9. There is no signs of any active hemorrhaging. Continue to monitor H&H. Transfuse if hemoglobin less than 70 Anemia workup revealed iron of 17, TIBC 147,% saturation 10, transferrin 116 and ferritin of 271 Will add iron supplement. (6) Hyperlipidemia: Qualifiers: Hyperlipidemia type: mixed hyperlipidemia Qualified Code(s): E78.2 - Mixed hyperlipidemia Code(s): E78.5 - Hyperlipidemia, unspecified Status: Chronic Assessment and Plan: Chronic. Stable. (7) History of abdominal surgery: Code(s): Z98.890 - Other specified postprocedural states Status: Acute Assessment and Plan: After review of her chart she was found to have a history of appendectomy and hysterectomy. Subjective Date/time seen: 10/01/23 13:01 Interval history: Patient appeared to be in pain when I entered the room. During examination patient started vomiting. Patient had her NG tube suction turned off due to getting her medications. The nurse was notified. She was given one time dose of Zofran. Patient has not had any gas or bowel movement. Exam Narrative: GENERAL: Comfortable, no acute distress HENMT: dry mucous membranes, NG tube patent EYES: EOM intact b/l NECK: no lymphadenopathy RESPIRATORY: clear to auscultation CARDIO: tachycardia, regular rhythm GI: diffuse tenderness, bowel sounds present, bandage dry and intact. SKIN: no rashes EXTREMITIES: no edema, redness or tenderness Objective Data Vital Signs Vital Signs: Vital Signs - 24 hr 09/30/23 16:21 09/30/23 16:00 09/30/23 16:00 Temperature 97.4 F L Pulse Rate 76 70 71 Respiratory Rate 20 Blood Pressure 129/50 L Pulse Oximetry 95 Oxygen Delivery Oxygen Flow Rate 09/30/23 20:00 09/30/23 20:35 10/01/23 00:30 Temperature 97.2 F L 96.6 F L Pulse Rate 61 65 Respiratory Rate 16 16 Blood Pressure 139/47 L 145/59 H Pulse Oximetry 93 92 96 Oxygen Delivery Nasal Cannula Oxygen Flow Rate 2 09/30/23 20:00 10/01/23 00:00 10/01/23 04:00 Temperat
[2023-10-01] MEDS: POTASSIUM CHLORIDE INJ 40 MEQ in SODIUM CHLORIDE 0.9% IV 500 ML 130 MEQ IVPB (14:10)
[2023-10-01] MEDS: BISACODYL 10 MG SUPPOSITORY RECTAL (14:19)
[2023-10-01] MEDS: amLODIPine BESYLATE 2.5 MG TABLET PO (16:13)
[2023-10-01] MEDS: DEXTROSE 5% 1,000 ML 1,000 ML 75 ML IV CONT (20:34)
[2023-10-02] VITALS (8 sets, daily range): BP systolic 141–157; BP diastolic 54–62; PULSE 60–72; RESP 20; TEMP 36.1–36.3; O2SAT 93–99
[2023-10-02] MEDS: metroNIDAZOLE 500 MG/ISO 100ML 500 MG/100 ML BAG 100 MG IVPB ×2 (05:01→12:31)
[2023-10-02 07:48] LABS: Hematocrit 24.3 % (37.0-47.0); Hemoglobin 7.7 g/dL (12.0-15.0); Mean Corpuscular HGB Conc 31.7 g/dl (32-36); Mean Corpuscular Hemoglobin 33.3 pg (26-34); Mean Corpuscular Volume 105.2 fl (80-100); Mean Platelet Volume 10.3 fl (7.4-10.4); Platelet Count Result 260 k/mm3 (150-375); Red Blood Count 2.31 M/mm3 (4.2-5.4); White Blood Count 5.1 K/mm3 (4.5-10.0)
[2023-10-02 08:16] LABS: Alanine Aminotransferase 13 U/L (6-35); Albumin Level 2.9 g/dL (3.5-5.1); Alkaline Phosphatase 52 U/L (38-126); Anion Gap 5 mmol/L (8-16); Aspartate Amino Transferase 21 U/L (14-36); Bilirubin,Total 0.5 mg/dL (0.2-1.3); Blood Urea Nitrogen 24 mg/dL (7-17); Calcium 9.1 mg/dL (8.4-10.2); Carbon Dioxide 24 mmol/L (22-30); Chloride 117 mmol/L (98-107); Estimated CRCL calculation 42 ml/min; Estimated Glomerular Filt Rate > 60; Glucose 125 mg/dL (65-110); Potassium 3.1 mmol/L (3.4-5.0); Sodium 146 mmol/L (137-145)
[2023-10-02] MEDS: levoFLOXacin 750 MG/D5W 150 ML 750 MG/150 ML BAG 100 MG IVPB (09:47)
[2023-10-02] MEDS: METOPROLOL TARTRATE 50 MG TAB PO ×2 (09:47→18:17)
[2023-10-02] MEDS: amLODIPine BESYLATE 5 MG TABLET PO (09:47)
[2023-10-02] MEDS: ENOXAPARIN 40 MG/0.4 ML SYRINGE SUB-Q (09:48)
[2023-10-02] MEDS: FERROUS GLUCONATE 324 MG TABLET PO (09:48)
[2023-10-02] MEDS: PANTOPRAZOLE SODIUM IV 40 MG VIAL IV PUSH ×2 (09:48→21:13)
--- NOTE | 2023-10-02 12:10 | PM.PNGS ---
Progress Note: A&P Assessment and Plan (1) Small bowel obstruction: Code(s): K56.609 - Unspecified intestinal obstruction, unspecified as to partial versus complete obstruction Status: Acute Assessment and Plan: Remove NG and start clear liquids. Stop Metronidazole. Increase activity. Quiles out soon. Subjective Subjective Date/Time Seen: 10/02/23 12:10 Interval history: Bowels moved. No nausea/vomiting. Up increasing activity little by little. Pain controlled. No fevers. Exam GI: Inspection: non-distended and incision (intact with devika) GI Palp: Yes Soft to palpation and Yes Tenderness to palpation present (GI) (incisional) Auscultation: normal bowel sounds Objective Data Vital Signs Vital Signs: Vital Signs - 24 hr 10/01/23 16:13 10/01/23 16:00 10/01/23 14:00 Temperature 36.1 C L Pulse Rate 68 67 59 L Respiratory Rate 20 Blood Pressure 135/48 L Pulse Oximetry 95 10/01/23 21:00 10/01/23 20:00 10/02/23 00:00 Temperature 36.4 C Pulse Rate 71 61 60 Respiratory Rate 18 Blood Pressure 149/51 H Pulse Oximetry 96 10/02/23 04:00 10/02/23 05:50 10/02/23 09:47 Temperature 36.1 C L Pulse Rate 64 66 68 Respiratory Rate 20 Blood Pressure 157/62 H Pulse Oximetry 93 Intake/Output Intake/Output: Intake & Output 09/29/23 09/30/23 10/01/23 10/02/23 23:59 23:59 23:59 23:59 Intake Total 3100 2490 1870 220 Output Total 1725 1300 2675 1000 Balance 1375 1190 -805 -937 Meds/Results Medications: Active Medications Generic Name Dose Route Start Last Admin Trade Name Freq PRN Reason Stop Dose Admin Amlodipine Besylate 5 mg 09/28/23 09:00 10/02/23 09:47 Amlodipine Besylate 5 Mg Tablet PO 5 mg DAILY JOZEF Administration Amlodipine Besylate 2.5 mg 09/28/23 18:00 10/01/23 16:13 Amlodipine Besylate 2.5 Mg Tablet PO 2.5 mg EVENING JOZEF Administration Enoxaparin Sodium 40 mg 09/30/23 09:00 10/02/23 09:48 Enoxaparin 40 Mg/0.4 Ml Syringe SUB-Q 40 mg DAILY JOZEF Administration Ferrous Gluconate 324 mg 10/01/23 08:00 10/01/23 08:35 Ferrous Gluconate 324 Mg Tablet PO 324 mg DAILY@0800 JOZEF Administration Hydromorphone HCl 0.5 mg 09/29/23 11:02 10/01/23 12:48 Hydromorphone Hcl Inj (*Crx) 1 Mg/Ml Syr IV PUSH 0.5 mg Q2H PRN Administration Pain Rated 4-6 Hydromorphone HCl 1 mg 09/29/23 11:02 10/01/23 04:43 Hydromorphone Hcl Inj (*Crx) 1 Mg/Ml Syr IV PUSH 1 mg Q2H PRN Administration Pain Rated 7-10 Metronidazole 500 mg in 100 mls @ 100 mls/hr 09/29/23 12:00 10/02/23 06:00 Flagyl 500 Mg/Iso Soln 100 Ml IVPB Infused Q8H JOZEF Infusion Levofloxacin/Dextrose 750 mg in 150 mls @ 100 mls/hr 09/30/23 08:00 10/02/23 09:47 Levaquin 750 Mg/D5w 150 Ml IVPB 100 mls/hr Q24H JOZEF Administration Dextrose 1,000 mls @ 75 mls/hr 10/01/23 08:30 10/01/23 20:34 Dextrose 5% 1,000 Ml IV CONT 75 mls/hr .[id number] JOZEF Administration Potassium Chloride 40 meq/ 520 mls @ 130 mls/hr 10/02/23 09:00 Sodium Chloride IVPB 10/02/23 12:59 ONCE ONE Metoprolol Tartrate 50 mg 09/28/23 09:00 10/02/23 09:47 Metoprolol Tartrate 50 Mg Tab PO 50 mg BID JOZEF Administration Ondansetron HCl 4 mg 09/28/23 03:51 10/01/23 09:38 Ondansetron Inj 4 Mg/2 Ml Vial IV PUSH 4 mg Q6H PRN Administration Nausea And Vomiting Pantoprazole Sodium 40 mg 09/30/23 09:00 10/02/23 09:48 Pantoprazole Sodium Iv 40 Mg Vial IV PUSH 40 mg Q12HR JOZEF Administration Radiology Results: ITS Impressions Abdomen/Pelvis CT 09/27/23 23:55 IMPRESSION: 1. Closed-loop small bowel obstruction. I called this result to Shira Mirza. 2. Small volume of ascites. Small Bowel X-Ray 09/28/23 17:19 IMPRESSION: 1. Small bowel obstruction. 2. Small sliding hiatal hernia. 3. Gastroesophageal reflux. Abdomen X-Ray 09/30/23 12:26 IMPRESSION: 1. No dilated loops of bowel are
[2023-10-02] MEDS: AMOXICILLIN/CLAVULANATE K 875-125 MG TAB 1 TABLET PO ×2 (13:05→21:14)
[2023-10-02] MEDS: POTASSIUM CHLORIDE INJ 40 MEQ in SODIUM CHLORIDE 0.9% IV 500 ML 130 MEQ IVPB (14:05)
[2023-10-02] MEDS: DEXTROSE 5% 1,000 ML 1,000 ML 75 ML IV CONT (14:05)
--- NOTE | 2023-10-02 14:20 | P.PNIM_ITS ---
Progress Note: A&P Assessment and Plan (1) Small bowel obstruction: Code(s): K56.609 - Unspecified intestinal obstruction, unspecified as to partial versus complete obstruction Status: Acute Assessment and Plan: Patient has history of small-bowel obstructions. * General surgery consulted. * IV fluids continued. * Bowels moved today. * NG removed on 10/02/2023 * POD 3 of exploratory laparotomy with bowel resection. * PT/OT ordered * Levaquin and metronidazole transition to Augmentin. Complete 7 day total treatment of antibiotics. (2) UTI (urinary tract infection): Code(s): N39.0 - Urinary tract infection, site not specified Status: Acute Assessment and Plan: UA with 2+ blood, 2+ leukocyte esterase, greater than 100 rbc's and greater, 100 wbc's, and 4+ bacteria. * Urine culture with growth of normal corrina. * Quiles catheter exchange on 09/30/2023 due to being clogged. (3) OLLIE (acute kidney injury): Code(s): N17.9 - Acute kidney failure, unspecified Status: Acute Assessment and Plan: * After bladder scanning patient already has Quiles in she was found have 400 in the bladder. * Quiles catheter exchange on 09/30. * Ultrasound of the Kidneys normal. * 10/01 BUN and creatinine of 36/1.0 * 10/02 BUN and creatinine 24/0.8 (4) Metabolic acidemia: Code(s): E87.20 - Acidosis, unspecified Status: Acute Assessment and Plan: On 10/01/2023 patient found to have a sodium of 147 and chloride of 120. At the time she had been on LR. LR was discontinued and D5W was started at 100 mL/hour. * Recheck labs revealed sodium of 146 and chloride of 116. D5W rate decreased to 70 mL/hour. * 10/02 Sodium of 146 and chloride of 117. Continue fluids at this rate due to patient starting liquid diet. * Continue to monitor daily labs. (5) Hypokalemia: Code(s): E87.6 - Hypokalemia Status: Acute Assessment and Plan: Patient has had intermittent low potassium. * Replenish potassium as necessary. * Continue to monitor. (6) Anemia: Code(s): D64.9 - Anemia, unspecified Status: Acute Assessment and Plan: on admission patient's hemoglobin and hematocrit were 13.6/40.3 * Hemoglobin and hematocrit are 7.8/24.9. * There is no signs of any active hemorrhaging. * Continue to monitor H&H. * Transfuse if hemoglobin less than 70 * Anemia workup revealed iron of 17, TIBC 147,% saturation 10, transferrin 116 and ferritin of 271 * Will add iron supplement. (7) Hypertension: Qualifiers: Hypertension type: primary hypertension Qualified Code(s): I10 - Essential (primary) hypertension Code(s): I10 - Essential (primary) hypertension Status: Chronic Assessment and Plan: Continue home medication of amlodipine and metoprolol. (8) Hyperlipidemia: Qualifiers: Hyperlipidemia type: mixed hyperlipidemia Qualified Code(s): E78.2 - Mixed hyperlipidemia Code(s): E78.5 - Hyperlipidemia, unspecified Status: Chronic Assessment and Plan: Chronic. Stable. (9) History of abdominal surgery: Code(s): Z98.890 - Other specified postprocedural states Status: Acute Assessment and Plan: After review of her chart she was found to have a history of appendectomy and hysterectomy. Subjective Date/time
--- NOTE | 2023-10-02 14:20 | PM.IMPN ---
Progress Note: A&P Assessment and Plan (1) Small bowel obstruction: Code(s): K56.609 - Unspecified intestinal obstruction, unspecified as to partial versus complete obstruction Status: Acute Assessment and Plan: Patient has history of small-bowel obstructions. General surgery consulted. IV fluids continued. Bowels moved today. NG removed on 10/02/2023 POD 3 of exploratory laparotomy with bowel resection. PT/OT ordered Levaquin and metronidazole transition to Augmentin. Complete 7 day total treatment of antibiotics. (2) UTI (urinary tract infection): Code(s): N39.0 - Urinary tract infection, site not specified Status: Acute Assessment and Plan: UA with 2+ blood, 2+ leukocyte esterase, greater than 100 rbc's and greater, 100 wbc's, and 4+ bacteria. Urine culture with growth of normal corrina. Quiles catheter exchange on 09/30/2023 due to being clogged. (3) OLLIE (acute kidney injury): Code(s): N17.9 - Acute kidney failure, unspecified Status: Acute Assessment and Plan: After bladder scanning patient already has Quiles in she was found have 400 in the bladder. Quiles catheter exchange on 09/30. Ultrasound of the Kidneys normal. 10/01 BUN and creatinine of 36/1.0 10/02 BUN and creatinine 24/0.8 (4) Metabolic acidemia: Code(s): E87.20 - Acidosis, unspecified Status: Acute Assessment and Plan: On 10/01/2023 patient found to have a sodium of 147 and chloride of 120. At the time she had been on LR. LR was discontinued and D5W was started at 100 mL/hour. Recheck labs revealed sodium of 146 and chloride of 116. D5W rate decreased to 70 mL/hour. 10/02 Sodium of 146 and chloride of 117. Continue fluids at this rate due to patient starting liquid diet. Continue to monitor daily labs. (5) Hypokalemia: Code(s): E87.6 - Hypokalemia Status: Acute Assessment and Plan: Patient has had intermittent low potassium. Replenish potassium as necessary. Continue to monitor. (6) Anemia: Code(s): D64.9 - Anemia, unspecified Status: Acute Assessment and Plan: on admission patient's hemoglobin and hematocrit were 13.6/40.3 Hemoglobin and hematocrit are 7.8/24.9. There is no signs of any active hemorrhaging. Continue to monitor H&H. Transfuse if hemoglobin less than 70 Anemia workup revealed iron of 17, TIBC 147,% saturation 10, transferrin 116 and ferritin of 271 Will add iron supplement. (7) Hypertension: Qualifiers: Hypertension type: primary hypertension Qualified Code(s): I10 - Essential (primary) hypertension Code(s): I10 - Essential (primary) hypertension Status: Chronic Assessment and Plan: Continue home medication of amlodipine and metoprolol. (8) Hyperlipidemia: Qualifiers: Hyperlipidemia type: mixed hyperlipidemia Qualified Code(s): E78.2 - Mixed hyperlipidemia Code(s): E78.5 - Hyperlipidemia, unspecified Status: Chronic Assessment and Plan: Chronic. Stable. (9) History of abdominal surgery: Code(s): Z98.890 - Other specified postprocedural states Status: Acute Assessment and Plan: After review of her chart she was found to have a history of appendectomy and hysterectomy. Subjective Date/time seen: 10/02/23 14:20 Interval history: Patient doing well today. She seems more comfortable at the time of my assessment. She has had bowel movement today. Her NG tube has been removed she has been started on a clear liquid diet. She denies any nausea. She does have some tenderness in her abdomen but is well bandaged. Exam Narrative: GENERAL: Comfortable, no acute distress HENMT: dry mucous membranes, NG tube patent EYES: EOM intact b/l NECK: no lymphadenopathy RESPIRATORY: clear to auscultation CARDIO: tachycardia, reg
[2023-10-02] MEDS: amLODIPine BESYLATE 2.5 MG TABLET PO (18:17)
[2023-10-02] MEDS: HYDROmorphone HCL INJ (*CRX) 1 MG/ML SYR IV PUSH (21:13)
[2023-10-02 22:25] LABS: IFOB Positive Control Positive; Immunochemical Fecal Occult Bl Positive (N)
[2023-10-03] VITALS (8 sets, daily range): BP systolic 154–179; BP diastolic 53–73; PULSE 54–78; RESP 18–20; TEMP 36.7–36.8; O2SAT 93–97
[2023-10-03] MEDS: HYDROmorphone HCL INJ (*CRX) 1 MG/ML SYR IV PUSH (05:39)
[2023-10-03 07:17] LABS: Hematocrit 24.6 % (37.0-47.0); Hemoglobin 7.8 g/dL (12.0-15.0); Mean Corpuscular HGB Conc 31.7 g/dl (32-36); Mean Corpuscular Hemoglobin 32.8 pg (26-34); Mean Corpuscular Volume 103.4 fl (80-100); Mean Platelet Volume 10.5 fl (7.4-10.4); Platelet Count Result 273 k/mm3 (150-375); Red Blood Count 2.38 M/mm3 (4.2-5.4); Red Cell Distribution Width 20.6 % (11.5-14.5); White Blood Count 6.1 K/mm3 (4.5-10.0)
[2023-10-03 07:32] LABS: Anion Gap 4 mmol/L (8-16); Blood Urea Nitrogen 16 mg/dL (7-17); Calcium 8.5 mg/dL (8.4-10.2); Carbon Dioxide 25 mmol/L (22-30); Chloride 111 mmol/L (98-107); Estimated CRCL calculation 64 ml/min; Estimated Glomerular Filt Rate > 60; Glucose 130 mg/dL (65-110); Sodium 140 mmol/L (137-145)
[2023-10-03] MEDS: ENOXAPARIN 40 MG/0.4 ML SYRINGE SUB-Q (08:14)
[2023-10-03] MEDS: PANTOPRAZOLE SODIUM IV 40 MG VIAL IV PUSH ×2 (08:14→20:50)
[2023-10-03] MEDS: AMOXICILLIN/CLAVULANATE K 875-125 MG TAB 1 TABLET PO ×2 (08:16→20:50)
[2023-10-03] MEDS: amLODIPine BESYLATE 5 MG TABLET PO (08:16)
[2023-10-03] MEDS: FERROUS GLUCONATE 324 MG TABLET PO (08:16)
[2023-10-03] MEDS: METOPROLOL TARTRATE 50 MG TAB PO ×2 (08:16→17:25)
[2023-10-03] MEDS: polyethylene glycoL 3350 17 GM POWD.PACK PO (08:17)
--- NOTE | 2023-10-03 11:50 | PCNFU ---
Nutrition Follow-Up Complete: Inadequate energy intake related to NPO status as evidenced by diet order Goal: Meet estimated needs - Progressing to goal Pt current nutrition is Full liquid diet. Nutrition recommendation: Oral nutrition supplement: Ensure Compact TID for additional 220 kcal and 9 g protein each Last recorded weight is 64.9 kg. Bowel Motility: +2 BMs 10/03/23 Labs Reviewed: Hgb 7 .8, Hct 24.6, K+ 3.0, Cre 0.5 Meds Noted:Lovenox, Zofran Skin: No pressure areas Additional Notes: Diet advanced to full liquid. Pt doing well. Said MD might advance diet to solids today. Pt likes chocolate Ensure, will order compact TID. Continue to monitor. Monitor for diet orders and plan of care. Follow up in 3 days.
[2023-10-03] MEDS: oxyCODONE HCL (*CRX) 5 MG TAB IR PO (12:08)
--- NOTE | 2023-10-03 16:47 | PM.PNGS ---
Progress Note: A&P Assessment and Plan (1) Small bowel obstruction: Code(s): K56.609 - Unspecified intestinal obstruction, unspecified as to partial versus complete obstruction Status: Acute Assessment and Plan: Continuing to improve. Advance diet as tolerated. Possibly stable for discharge tomorrow. Subjective Subjective Date/Time Seen: 10/03/23 16:47 Interval history: Bowels moving. Tolerating liquids. Pain improving. Exam GI: Inspection: incision (intact with devika) GI Palp: Yes Soft to palpation and Yes Tenderness to palpation present (GI) (incisional) Auscultation: normal bowel sounds Objective Data Vital Signs Vital Signs: Vital Signs - 24 hr 10/02/23 18:17 10/02/23 20:00 10/02/23 20:30 Temperature 36.3 C L Pulse Rate 68 63 Respiratory Rate 20 Blood Pressure 152/54 H Pulse Oximetry 93 93 Oxygen Delivery Nasal Cannula Oxygen Flow Rate 2 10/03/23 05:20 10/03/23 06:40 10/03/23 08:16 Temperature 36.8 C Pulse Rate 64 54 L 78 Respiratory Rate 18 Blood Pressure 179/67 H 160/57 H Pulse Oximetry 93 95 Oxygen Delivery Oxygen Flow Rate 10/03/23 08:00 10/03/23 14:00 Temperature 36.8 C Pulse Rate 66 Respiratory Rate 20 Blood Pressure 166/73 H Pulse Oximetry 95 96 Oxygen Delivery Nasal Cannula Oxygen Flow Rate 2 Intake/Output Intake/Output: Intake & Output 09/30/23 10/01/23 10/02/23 10/03/23 23:59 23:59 23:59 23:59 Intake Total 2490 2390 2350 580 Output Total 1300 2675 1350 1400 Balance 1190 -285 1000 -820 Meds/Results Medications: Active Medications Generic Name Dose Route Start Last Admin Trade Name Freq PRN Reason Stop Dose Admin Acetaminophen 1,000 mg 10/03/23 10:26 Acetaminophen 500 Mg Tablet PO Q6H PRN Mild Pain (1-3) or Fever Amlodipine Besylate 5 mg 09/28/23 09:00 10/03/23 08:16 Amlodipine Besylate 5 Mg Tablet PO 5 mg DAILY JOZEF Administration Amlodipine Besylate 2.5 mg 09/28/23 18:00 10/02/23 18:17 Amlodipine Besylate 2.5 Mg Tablet PO 2.5 mg EVENING JOZEF Administration Amoxicillin/Clavulanate Potassium 1 tablet 10/02/23 12:30 10/03/23 08:16 Amoxicillin/Clavulanate K 875-125 Mg Tab PO 10/05/23 21:01 1 tablet Q12HR JOZEF Administration Enoxaparin Sodium 40 mg 09/30/23 09:00 10/03/23 08:14 Enoxaparin 40 Mg/0.4 Ml Syringe SUB-Q 40 mg DAILY JOZEF Administration Ferrous Gluconate 324 mg 10/01/23 08:00 10/03/23 08:16 Ferrous Gluconate 324 Mg Tablet PO 324 mg DAILY@0800 [facility] Administration Hydromorphone HCl 0.5 mg 09/29/23 11:02 10/01/23 12:48 Hydromorphone Hcl Inj (*Crx) 1 Mg/Ml Syr IV PUSH 0.5 mg Q2H PRN Administration Pain Rated 4-6 Hydromorphone HCl 1 mg 09/29/23 11:02 10/03/23 05:39 Hydromorphone Hcl Inj (*Crx) 1 Mg/Ml Syr IV PUSH 1 mg Q2H PRN Administration Pain Rated 7-10 Metoprolol Tartrate 50 mg 09/28/23 09:00 10/03/23 08:16 Metoprolol Tartrate 50 Mg Tab PO 50 mg BID JOZEF Administration Ondansetron HCl 4 mg 09/28/23 03:51 10/01/23 09:38 Ondansetron Inj 4 Mg/2 Ml Vial IV PUSH 4 mg Q6H PRN Administration Nausea And Vomiting Oxycodone HCl 2.5 mg 10/03/23 10:26 Oxycodone Hcl (*Crx) 2.5 Mg Tab Ir PO Q4H PRN Pain Rated 4-6 Oxycodone HCl 5 mg 10/03/23 10:26 10/03/23 12:08 Oxycodone Hcl (*Crx) 5 Mg Tab Ir PO 5 mg Q4H PRN Administration Pain Rated 7-10 Pantoprazole Sodium 40 mg 09/30/23 09:00 10/03/23 08:14 Pantoprazole Sodium Iv 40 Mg Vial IV PUSH 40 mg Q12HR JOZEF Administration Polyethylene Glycol 17 gm 10/03/23 09:00 10/03/23 08:17 Polyethylene Glycol 3350 17 Gm Powd.Pack PO 17 gm QAM JOZEF Administration Radiology Results: ITS Impressions Abdomen/Pelvis CT 09/27/23 23:55 IMPRESSION: 1. Closed-loop small bowel obstruction. I called this result to Shira Mirza. 2. Small volume of ascites. Small Bowel X-Ray 09/28/23 17:19
--- NOTE | 2023-10-03 17:07 | PM.IMPN ---
Progress Note: A&P Assessment and Plan (1) Hypokalemia: Code(s): E87.6 - Hypokalemia Status: Acute (2) Anemia: Code(s): D64.9 - Anemia, unspecified Status: Acute (3) OLLIE (acute kidney injury): Code(s): N17.9 - Acute kidney failure, unspecified Status: Acute (4) Small bowel obstruction: Code(s): K56.609 - Unspecified intestinal obstruction, unspecified as to partial versus complete obstruction Status: Acute Plan wean o2. potassium replaced. home tomorrow if tolerating advanced diet. full code. Subjective Date/time seen: 10/03/23 17:07 Interval history: naoe . pt tolerating her current diet. she denies abdominal pain, denies sob Review of Systems Review of Systems: All systems reviewed & are unremarkable except as noted in HPI and below (subjective) Exam Const: General: comfortable and no acute distress Eyes: Pupils: Equal, round and reactive pupils present Resp: Effort & Inspection: normal respiratory effort Auscultation: clear to auscultation bilaterally Cardio: Rate: regular rate Rhythm: regular rhythm Extrem: General: no edema Objective Data Vital Signs Vital Signs: Vital Signs - 24 hr 10/02/23 18:17 10/02/23 20:00 10/02/23 20:30 Temperature 97.4 F L Pulse Rate 68 63 Respiratory Rate 20 Blood Pressure 152/54 H Pulse Oximetry 93 93 Oxygen Delivery Nasal Cannula Oxygen Flow Rate 2 10/03/23 05:20 10/03/23 06:40 10/03/23 08:16 Temperature 98.2 F Pulse Rate 64 54 L 78 Respiratory Rate 18 Blood Pressure 179/67 H 160/57 H Pulse Oximetry 93 95 Oxygen Delivery Oxygen Flow Rate 10/03/23 08:00 10/03/23 14:00 Temperature 98.2 F Pulse Rate 66 Respiratory Rate 20 Blood Pressure 166/73 H Pulse Oximetry 95 96 Oxygen Delivery Nasal Cannula Oxygen Flow Rate 2 Intake/Output Intake/Output: Intake & Output 09/30/23 10/01/23 10/02/23 10/03/23 23:59 23:59 23:59 23:59 Intake Total 2490 2390 2350 580 Output Total 1300 2675 1350 1400 Balance 1190 -285 1000 -820 Meds/Results Medications: Active Medications Generic Name Dose Route Start Last Admin Trade Name Freq PRN Reason Stop Dose Admin Acetaminophen 1,000 mg 10/03/23 10:26 Acetaminophen 500 Mg Tablet PO Q6H PRN Mild Pain (1-3) or Fever Amlodipine Besylate 5 mg 09/28/23 09:00 10/03/23 08:16 Amlodipine Besylate 5 Mg Tablet PO 5 mg DAILY JOZEF Administration Amlodipine Besylate 2.5 mg 09/28/23 18:00 10/02/23 18:17 Amlodipine Besylate 2.5 Mg Tablet PO 2.5 mg EVENING JOZEF Administration Amoxicillin/Clavulanate Potassium 1 tablet 10/02/23 12:30 10/03/23 08:16 Amoxicillin/Clavulanate K 875-125 Mg Tab PO 10/05/23 21:01 1 tablet Q12HR JOZEF Administration Enoxaparin Sodium 40 mg 09/30/23 09:00 10/03/23 08:14 Enoxaparin 40 Mg/0.4 Ml Syringe SUB-Q 40 mg DAILY JOZEF Administration Ferrous Gluconate 324 mg 10/01/23 08:00 10/03/23 08:16 Ferrous Gluconate 324 Mg Tablet PO 324 mg DAILY@0800 [facility] Administration Hydromorphone HCl 0.5 mg 09/29/23 11:02 10/01/23 12:48 Hydromorphone Hcl Inj (*Crx) 1 Mg/Ml Syr IV PUSH 0.5 mg Q2H PRN Administration Pain Rated 4-6 Hydromorphone HCl 1 mg 09/29/23 11:02 10/03/23 05:39 Hydromorphone Hcl Inj (*Crx) 1 Mg/Ml Syr IV PUSH 1 mg Q2H PRN Administration Pain Rated 7-10 Metoprolol Tartrate 50 mg 09/28/23 09:00 10/03/23 08:16 Metoprolol Tartrate 50 Mg Tab PO 50 mg BID JOZEF Administration Ondansetron HCl 4 mg 09/28/23 03:51 10/01/23 09:38 Ondansetron Inj 4 Mg/2 Ml Vial IV PUSH 4 mg Q6H PRN Administration Nausea And Vomiting Oxycodone HCl 2.5 mg 10/03/23 10:26 Oxycodone Hcl (*Crx) 2.5 Mg Tab Ir PO Q4H PRN Pain Rated 4-6 Oxycodone HCl 5 mg 10/03/23 10:26 10/03/23 12:08 Oxycodone Hcl (*Crx) 5 Mg Tab Ir PO 5 mg Q4H PRN Administration Pain Rated 7-10 Pantoprazole Sodium 4
[2023-10-03] MEDS: amLODIPine BESYLATE 2.5 MG TABLET PO (17:25)
[2023-10-03] MEDS: POTASSIUM CHLORIDE 20 MEQ ER TABLET 40 MEQ PO (17:26)
[2023-10-04 05:52] VITALS: BP 169/61; PULSE 69; RESP 18; TEMP 37; O2SAT 92
[2023-10-04 07:49] LABS: Anion Gap 3 mmol/L (8-16); Blood Urea Nitrogen 14 mg/dL (7-17); Calcium 8.7 mg/dL (8.4-10.2); Carbon Dioxide 26 mmol/L (22-30); Chloride 109 mmol/L (98-107); Estimated CRCL calculation 64 ml/min; Estimated Glomerular Filt Rate > 60; Glucose 105 mg/dL (65-110); Hematocrit 26.6 % (37.0-47.0); Hemoglobin 8.8 g/dL (12.0-15.0); Magnesium 1.6 mg/dL (1.6-2.3); Mean Corpuscular HGB Conc 33.1 g/dl (32-36); Mean Corpuscular Hemoglobin 32.6 pg (26-34); Mean Corpuscular Volume 98.5 fl (80-100); Mean Platelet Volume 10.3 fl (7.4-10.4); Platelet Count Result 303 k/mm3 (150-375); Potassium 3.2 mmol/L (3.4-5.0); Red Cell Distribution Width 20.1 % (11.5-14.5); Sodium 138 mmol/L (137-145); White Blood Count 8.5 K/mm3 (4.5-10.0)
[2023-10-04] MEDS: ENOXAPARIN 40 MG/0.4 ML SYRINGE SUB-Q (07:52)
[2023-10-04] MEDS: oxyCODONE HCL (*CRX) 5 MG TAB IR PO (07:53)
[2023-10-04] MEDS: PANTOPRAZOLE SODIUM IV 40 MG VIAL IV PUSH (07:53)
[2023-10-04] MEDS: polyethylene glycoL 3350 17 GM POWD.PACK PO (07:53)
[2023-10-04 07:54] VITALS: PULSE 72
[2023-10-04] MEDS: FERROUS GLUCONATE 324 MG TABLET PO (07:54)
[2023-10-04] MEDS: METOPROLOL TARTRATE 50 MG TAB PO ×2 (07:54→18:27)
[2023-10-04] MEDS: amLODIPine BESYLATE 5 MG TABLET PO (07:54)
[2023-10-04] MEDS: AMOXICILLIN/CLAVULANATE K 875-125 MG TAB 1 TABLET PO (07:54)
[2023-10-04 08:00] VITALS: O2SAT 94
[2023-10-04] MEDS: KCL 20 MEQ/SW 100 ML 100 ML 50 MEQ IVPB (09:39)
[2023-10-04] MEDS: POTASSIUM CHLORIDE 20 MEQ ER TABLET PO (09:39)
--- NOTE | 2023-10-04 13:05 | PM.PNGS ---
Progress Note: A&P Assessment and Plan (1) Small bowel obstruction: Code(s): K56.609 - Unspecified intestinal obstruction, unspecified as to partial versus complete obstruction Status: Acute Assessment and Plan: Continuing to improve. Advance diet as tolerated. Stable for discharge from surgical standpoint. Will have patient follow up in office in 1 week to remove devika. Quiles still in on POD#5--not sure why. Subjective Subjective Date/Time Seen: 10/04/23 13:05 Interval history: Tolerating diet. Pain controlled. Bowels moving. Still has Quiles--unsure why. Exam GI: Inspection: incision (intact with devika) GI Palp: Yes Soft to palpation and Yes Tenderness to palpation present (GI) (incisional) Auscultation: normal bowel sounds Objective Data Vital Signs Vital Signs: Vital Signs - 24 hr 10/03/23 14:00 10/03/23 17:25 10/03/23 17:31 Temperature 36.8 C Pulse Rate 66 68 Respiratory Rate 20 Blood Pressure 166/73 H Pulse Oximetry 96 97 Oxygen Delivery Nasal Cannula Oxygen Flow Rate 2 10/03/23 20:48 10/04/23 05:52 10/04/23 07:54 Temperature 36.7 C 37.0 C Pulse Rate 63 69 72 Respiratory Rate 20 18 Blood Pressure 154/53 H 169/61 H Pulse Oximetry 95 92 Oxygen Delivery Oxygen Flow Rate 10/04/23 08:00 Temperature Pulse Rate Respiratory Rate Blood Pressure Pulse Oximetry 94 Oxygen Delivery Room Air Oxygen Flow Rate Intake/Output Intake/Output: Intake & Output 10/01/23 10/02/23 10/03/23 10/04/23 23:59 23:59 23:59 23:59 Intake Total 2390 2350 820 680 Output Total 2675 1350 1400 350 Balance -285 1000 -580 330 Meds/Results Medications: Active Medications Generic Name Dose Route Start Last Admin Trade Name Freq PRN Reason Stop Dose Admin Acetaminophen 1,000 mg 10/03/23 10:26 Acetaminophen 500 Mg Tablet PO Q6H PRN Mild Pain (1-3) or Fever Amlodipine Besylate 5 mg 09/28/23 09:00 10/04/23 07:54 Amlodipine Besylate 5 Mg Tablet PO 5 mg DAILY JOZEF Administration Amlodipine Besylate 2.5 mg 09/28/23 18:00 10/03/23 17:25 Amlodipine Besylate 2.5 Mg Tablet PO 2.5 mg EVENING JOZEF Administration Amoxicillin/Clavulanate Potassium 1 tablet 10/02/23 12:30 10/04/23 07:54 Amoxicillin/Clavulanate K 875-125 Mg Tab PO 10/05/23 21:01 1 tablet Q12HR JOZEF Administration Enoxaparin Sodium 40 mg 09/30/23 09:00 10/04/23 07:52 Enoxaparin 40 Mg/0.4 Ml Syringe SUB-Q 40 mg DAILY JOZEF Administration Ferrous Gluconate 324 mg 10/01/23 08:00 10/04/23 07:54 Ferrous Gluconate 324 Mg Tablet PO 324 mg DAILY@0800 [facility] Administration Hydromorphone HCl 0.5 mg 09/29/23 11:02 10/01/23 12:48 Hydromorphone Hcl Inj (*Crx) 1 Mg/Ml Syr IV PUSH 0.5 mg Q2H PRN Administration Pain Rated 4-6 Hydromorphone HCl 1 mg 09/29/23 11:02 10/03/23 05:39 Hydromorphone Hcl Inj (*Crx) 1 Mg/Ml Syr IV PUSH 1 mg Q2H PRN Administration Pain Rated 7-10 Metoprolol Tartrate 50 mg 09/28/23 09:00 10/04/23 07:54 Metoprolol Tartrate 50 Mg Tab PO 50 mg BID JOZEF Administration Ondansetron HCl 4 mg 09/28/23 03:51 10/01/23 09:38 Ondansetron Inj 4 Mg/2 Ml Vial IV PUSH 4 mg Q6H PRN Administration Nausea And Vomiting Oxycodone HCl 2.5 mg 10/03/23 10:26 Oxycodone Hcl (*Crx) 2.5 Mg Tab Ir PO Q4H PRN Pain Rated 4-6 Oxycodone HCl 5 mg 10/03/23 10:26 10/04/23 07:53 Oxycodone Hcl (*Crx) 5 Mg Tab Ir PO 5 mg Q4H PRN Administration Pain Rated 7-10 Pantoprazole Sodium 40 mg 09/30/23 09:00 10/04/23 07:53 Pantoprazole Sodium Iv 40 Mg Vial IV PUSH 40 mg Q12HR JOZEF Administration Polyethylene Glycol 17 gm 10/03/23 09:00 10/04/23 07:53 Polyethylene Glycol 3350 17 Gm Powd.Pack PO 17 gm QAM JOZEF Administration Radiology Results: ITS Impressions Abdomen/Pelvis CT 09/27/23 23:55 IMPRESSION: 1. Closed-loop small bowel obstruction. I called this
--- NOTE | 2023-10-04 14:05 | PM.DS ---
DS: Admitting Diagnosis Discharge Date 10/04/23 Admitting Diagnosis small bowel obstruction DS: Discharge Diagnosis Discharge Diagnosis (1) OLLIE (acute kidney injury): Code(s): N17.9 - Acute kidney failure, unspecified Status: Acute (2) UTI (urinary tract infection): Code(s): N39.0 - Urinary tract infection, site not specified Status: Acute (3) History of abdominal surgery: Code(s): Z98.890 - Other specified postprocedural states Status: Acute (4) Small bowel obstruction: Code(s): K56.609 - Unspecified intestinal obstruction, unspecified as to partial versus complete obstruction Status: Acute DS: Summary Hospital Course Hospital Course: 83F w/ PMH HTN and 2 previous SBO, GIANLUCA, HLD, presented with nausea and vomiting. She underwent ex lap w/ adhesiolysis and ileal resection with side to side ileal anastomosis on 09/29. The patient improved appropriately post op and is dc'ed in stable condition to SNF for rehab on 10/04/23. She is to follow up with general surgery as outpatient. Also treated for: # UTI - levaquin and augmentin # OLLIE - 2/2 dehydration or outlet obstruction. kidney US normal. resolved # anemia - iron supplement prescribed. She agrees to f/u with PCP as well. More than 30 minutes spent on discharge planning and documentation. Time Spent with Patient Time attestation: Total time spent providing and/or coordinating discharge services: Exam Const: General: cooperative and no acute distress Resp: Effort & Inspection: normal respiratory effort Auscultation: clear to auscultation bilaterally Cardio: Rate: regular rate Rhythm: regular rhythm Heart sounds: S1 normal heart sound present and S2 normal heart sound present GI: GI Palp: No abdominal tenderness Auscultation: normal bowel sounds DS: Data Data Completed and Pending Completed studies during hospitalization: Pending at discharge 09/29/23 09:45 Surgical [PTH] Routine Labs on day of discharge: Labs from last 24 hours 10/04/23 07:14 WBC 8.5 RBC 2.70 L Hgb 8.8 L Hct 26.6 L MCV 98.5 MCH 32.6 MCHC 33.1 RDW 20.1 H Plt Count 303 MPV 10.3 Sodium 138 Potassium 3.2 L Chloride 109 H Carbon Dioxide 26 Anion Gap 3 L BUN 14 Creatinine 0.50 L Estim Creat Clear Calc 64 Estimated GFR > 60 Glucose 105 Calcium 8.7 Magnesium 1.6 Discharge Plan Discharge Attending physician on discharge: Poly Colon Consulting providers: Shira Mirza; Severo Patterson Discharging Clinician: Poly Colon Patient Disposition: SNF Activity: may shower Diet: heart healthy and low fiber Wound Care Instructions: other - see discharge instructions Discharge Instructions: Postoperative instructions: No lifting >10 lbs x 6 weeks Call office for increasing pain, fevers, or problems with incision OK to shower, no bathing/soaking x2 weeks May drive in 2 weeks Stand Alone Forms: General Discharge Information Follow-up/Referrals: Misha Rinaldi MD [Primary Care Provider] - 2 Weeks Severo Patterson DO [Physician] - 1 Week Discharge Medications: New oxycodone-acetaminophen [Endocet] 5-325 mg tablet 0.5 - 1 tablet PO Q4H PRN (Reason: pain) Qty: 10 0RF ferrous gluconate 324 mg (38 mg iron) Tablet 324 mg PO DAILY@0800 Qty: 90 1RF Continued metoprolol tartrate 50 mg tablet 50 mg PO BID Qty: 180 3RF amlodipine 5 mg tablet 5 mg PO .COMPLEX Qty: 135 3RF Rx Instructions: Take 1 tablet in the morning and 1/2 tablet in the evening cholecalciferol (vitamin D3) 50 mcg (2,000 unit) capsule 2,000 unit PO DAILY Date of admission: 09/28/23 10:09 Primary Care Provider: Misha Rinaldi Admitting Provider: Pearl John V. Attending physician on admission: Pearl John V. Condition: Improved
--- NOTE | 2023-10-04 15:37 | PC.NURSE ---
physical script needed for endocet for SNF. Dr. Patterson's office will page him and see what we need to do to get physical script for patient.
[2023-10-04 15:49] LABS: SARS-CoV-2 RNA PCR Negative (Negative)
[2023-10-04 18:27] VITALS: PULSE 70
[2023-10-04] MEDS: amLODIPine BESYLATE 2.5 MG TABLET PO (18:27)
== END 2023-10-04 19:08 | DRG 330 ==
LOC: ANHED 09-28 01:18 → ANH3MEDSUR 09-28 02:44
PROVIDERS: Internal Medicine Critical Care Medicine; Surgery; Admitting Provider Internal Medicine; Emergency Provider Physician Assistant; PCP Emergency Medicine; Visit Provider General Practice
PROC: 0DBB0ZZ Excision of Ileum, Open Approach (ICD-10-PCS; CPT 49000; principal; 2023-09-29 07:30)
DX: K56.50 Intestinal adhesions [bands], unspecified as to partial versus complete obstruction (principal); D62 Acute posthemorrhagic anemia; N17.9 Acute kidney failure, unspecified; N39.0 Urinary tract infection, site not specified; K66.0 Peritoneal adhesions (postprocedural) (postinfection); I10 Essential (primary) hypertension; E86.0 Dehydration; T83.091A Other mechanical complication of indwelling urethral catheter, initial encounter; E78.2 Mixed hyperlipidemia; E87.6 Hypokalemia; D50.9 Iron deficiency anemia, unspecified; M19.90 Unspecified osteoarthritis, unspecified site; F41.9 Anxiety disorder, unspecified; Z11.52 Encounter for screening for COVID-19; Z90.49 Acquired absence of other specified parts of digestive tract; Z90.710 Acquired absence of both cervix and uterus; Z98.890 Other specified postprocedural states
CPT/HCPCS: 36415; 74018; 74177; 74250; 76775; 80048; 80053; 81001; 82274; 82607; 82728; 82746; 83540; 83550; 83605; 83690; 83735; 84439; 84443; 84466; 84480; 85014; 85018; 85025; 85027; 87086; 87088; 87635; 88307; 96361; 96365; 96375; 96376; 97110; 97161; 97165; 97530; 97535; 99285; A9270; C9113; G0378; J0330; J0690; J0696; J1170; J1650; J1741; J1836; J1956; J2270; J2371; J2405; J3010; J3480; J7030; J7040; J7070; J7120; Q9967